=== PATIENT | male | born 2000 ===

== ENCOUNTER 2020-08-19 01:30 | Emergency (ER) | payer SELFPAY ==
--- NOTE | 2020-08-19 | XR_ITS ---
EXAMINATION: LEFT HAND 3 VIEWS CLINICAL INFORMATION: Left hand pain. COMPARISON: None. TECHNIQUE: PA, lateral, oblique views of the left hand were obtained. FINDINGS: There is volar angulation to a fracture to the distal left fifth metacarpal. There is associated soft tissue swelling. XR/XR hand LT min 3V IMPRESSION: Distal left fifth metacarpal fracture.
[2020-08-19 02:12] VITALS: BP 136/76; PULSE 99; RESP 18; TEMP 36.9; O2SAT 99; BMI 21.9
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
[2020-08-19 04:01] VITALS: BP 94/53; PULSE 84; RESP 17; TEMP 36.7; O2SAT 99
== END 2020-08-19 04:38 | disposition home or self-care (01) ==
PROVIDERS: Emergency Provider Emergency Medicine Emergency Medical Services
DX: S62.92XA Unspecified fracture of left hand, initial encounter for closed fracture (principal); M79.642 Pain in left hand; X79.XXXA Intentional self-harm by blunt object, initial encounter; Y93.9 Activity, unspecified; Y92.9 Unspecified place or not applicable; Y99.9 Unspecified external cause status
CPT/HCPCS: 73130; 99283; 99284

== ENCOUNTER 2020-08-21 10:33 | Outpatient (REF) | payer SELFPAY ==
--- NOTE | 2020-08-21 11:51 | XR_ITS ---
EXAMINATION: XR HAND, LEFT CLINICAL INFORMATION: Fifth metacarpal fracture COMPARISON: Previous x-ray 08/19/2020 TECHNIQUE: Lateral view of the left hand. FINDINGS: There is an overlying cast. There is a fracture of the distal shaft of the fifth metacarpal bone. There is slight volar angulation of the head with respect to the shaft. Alignment appears unchanged. No other fracture is seen. XR/XR hand LT 2V IMPRESSION: New overlying cast. No change in left fifth metacarpal fracture.
== END 2020-08-21 10:34 | disposition home or self-care (01) ==
LOC: HO.HOSX 10:33
PROVIDERS: Visit Provider Physician Assistant
DX: S62.92XA Unspecified fracture of left hand, initial encounter for closed fracture (principal)
CPT/HCPCS: 20600; 26605; 29075; 73120; 99212

== ENCOUNTER 2020-09-11 13:51 | Outpatient (REF) | payer SELFPAY ==
--- NOTE | 2020-09-11 13:51 | XR_ITS ---
EXAMINATION: XR HAND, LEFT CLINICAL INFORMATION: Fifth metacarpal fracture. Follow-up. COMPARISON: Radiographs left hand 08/21/2020, 08/19/2020, 08/16/2015 TECHNIQUE: Left hand is imaged in 4 views. FINDINGS: There is fracture at neck fifth metacarpal again seen. Fracture lines are still visible. Dorsal angulation fracture site is perhaps borderline increased. There is no new fracture or destructive process. XR/XR hand LT min 3V IMPRESSION: Fifth metacarpal neck fracture with borderline increase in dorsal angulation.
== END 2020-09-11 13:52 | disposition home or self-care (01) ==
LOC: HO.HOSX 13:51
PROVIDERS: Visit Provider Physician Assistant
DX: S62.339D Displaced fracture of neck of unspecified metacarpal bone, subsequent encounter for fracture with routine healing (principal)
CPT/HCPCS: 73130; 99212

== ENCOUNTER 2020-09-22 15:58 | Emergency (ER) | payer SELFPAY ==
[2020-09-22 16:01] VITALS: BP 112/71; PULSE 55; RESP 18; O2SAT 99; BMI 22.3
--- NOTE | 2020-09-22 19:49 | ED_ITS ---
HPI - Abdominal Pain General Chief Complaint: Abdominal Pain Stated Complaint: Abdominal pain/vomiting Time Seen by Provider: 09/22/20 20:14 Source: patient Mode of arrival: ambulatory Limitations: no limitations History of Present Illness HPI narrative: 20-year-old male with past medical history of appendectomy pre sents with sudden onset of abdominal pain, nausea and vomiting. This started about an hour after eating plantain and rice. He does report daily marijuana use but denies alcohol, cocaine, heroin and other illicit drugs. He does not report any other symptoms, denies chest pain and pressure, palpitations, fevers, chills, abdominal distention, dysuria, hematuria, and edema. MD elicited complaint: abdominal pain Onset (ago): hour(s) (1:00 p.m.) Pain Consistency: intermittent Location: epigastric Severity: moderate Pain scale (0-10): 6 Quality: cramping and stabbing Radiation: none Migration to: no migration Exacerbating factors: vomiting and movement Relieving factors: nothing Context: possible food poisoning Associated symptoms: denies other symptoms Related Data Previous Rx's Medication Instructions Recorded amoxicillin-pot clavulanate 1 tab PO Q12H 7 Days #14 tab 08/19/20 [Augmentin] ibuprofen 400 mg PO Q6H PRN #20 tab 08/19/20 arm brace #1 ea 09/15/20 arm brace #1 ea 09/20/20 ondansetron HCl [Zofran] 4 mg PO Q8H PRN #10 tab 09/22/20 Allergies Allergy/AdvReac Type Severity Reaction Status Date / Time No Known Allergies Allergy Verified 09/11/20 13:54 [No Known Allergies*] Review of Systems Review of Systems Constitutional: No Weight loss, No Fever, No Chills, No Night Sweats, No Fatigue, No Malaise ENT/Mouth: No Hearing loss, No Ear Pain, No Nasal Congestion, No Sinus Pain, No Hoarseness, No sore throat, No Rhinorrhea, No Swallowing Difficulty Eyes: No Eye Pain, No Swelling, No Redness, No Foreign Body, No Discharge, No Vision Changes Cardiovascular: No Chest Pain, No SOB, No Dyspnea on Exertion, No Orthopnea, No Edema, No Palpitations Respiratory: No Cough, No Sputum, No Wheezing, No Smoke Exposure, No Dyspnea Gastrointestinal: Positive Nausea, Positive Vomiting, no Diarrhea, positive abdominal Pain, No Hematochezia, No Melena Genitourinary: no irregular bleeding, No Dysuria, No Urinary Frequency, No Hematuria, No Urinary Incontinence, No Urgency, No Flank Pain, No Urinary Flow Changes, No Hesitancy Musculoskeletal: No joint pain, No Myalgias, No Joint Swelling Skin: No Skin Lesions, No rash Neuro: No Weakness, No Numbness, No Paresthesias, No Loss of Consciousness, No Dizziness, No Headache Psych: No Anxiety/Panic, No Depression, No SI/HI/AH/VH, No Social Issues Heme/Lymph: No Bruising, No Bleeding,No Lymphadenopathy Endocrine: No Polyuria, No Polydipsia, No Temperature Intolerance Yes all other systems are reviewed and are negative Physical Exam Vital Signs: Vital Signs: Last Vital Signs Pulse 55 09/22/20 16:01 Resp 18 09/22/20 16:01 BP 112/71 09/22/20 16:01 Pulse Ox 99 09/22/20 16:01 Body Mass Index 22.3 Appearance: Alert. Oriented X3. Moderate distress, verbally aggressive. Eyes: Pupils equal, round and reactive to light. ENT: Pharynx normal. Neck: Normal inspection. Neck supple. CVS: Normal heart rate and rhythm. Pulses normal. Respiratory: No respiratory distress. Breath sounds normal. Abdomen: Soft and nontender. Skin: Skin warm and dry. Normal skin color. Normal skin turgor. Extremities: No lower extremity edema. Neuro: No motor deficit. No sensory deficit. Course Course Course Narrative: Upon my initial evaluation, Patient demanding that this POLITICAL ANALYST get him something to drink, he states that he is not wearing a mask because he does not have one, demanded that I get him a mask, was speaking in a very demeaning tone. He had a prior encounter with the [employer] coordinator, was swearing and speaking in a condescending and disrespectful manner to all staff, verbally aggressive to all staff he has encountered. Plan of care is COVID test, and CBC, Chem 7. Negative physical exam, no abdominal pain, negative Gatica's, psoas, obturator, Rovsing's and McBurney's. Patient did have a prior appendectomy. Lab values indicate a white count of 14.1 this could be a viral gastroenteritis versus food poisoning. Plan of care is to discharge home with supportive measures of Zofran and fluids. Findings discussed with the patient, patient sta paul that he was very upset when he 1st came in and he apologizes about his poor behavior, Patient verbalized understanding of and agrees to plan of care to discharge home MDM - Abdominal Pain Lab Data Result diagrams: 09/22/20 20:16 12 20:16 Labs: Lab Results 09/22/20 12 Range/Units 20:16 20:16 WBC 14.3 H (4.8-10.8) X10*3/uL RBC 4.76 (4.60-5.80) X10*6/uL Hgb 15.1 (14.0-18.0) g/dl Hct 44.3 (42-52) % MCV 93.1 (80-98) fL MCH 31.7 (27.0-33.0) pg MCHC 34.1 (31.0-36.0) g/dl RDW 11.9 (11.0-16.0) % Plt Count 209 (160-400) X10*3/uL MPV 10.9 (9.4-12.4) fL Immature Gran % (Auto) 0.4 (0.0-0.4) % Neut % (Auto) 93.1 H (45-73) % Lymph % (Auto) 2.6 L (20-40) % Dickinson % (Auto) 3.8 (2-11) % Eos % (Auto) 0.0 (0-4) % Baso % (Auto) 0.1 (0-2) % Lymph # (Auto) 0.4 L (1.2-4.9) X10*3/uL Dickinson # (Auto) 0.5 (0.1-1.2) X10*3/uL Eos # (Auto) 0.0 (0.0-0.4) X10*3/uL Baso # (Auto) 0.0 (0.0-0.2) X10*3/uL Abs Immat Gran (auto) 0.06 H (0.00-0.03) X10*3/uL Absolute Neuts (auto) 13.3 H (2.0-8.3) X10*3/uL Absolute Nucleated RBC 0.000 (0.0-0.012) X10*3/uL Nucleated RBC % (auto) 0.0 (0.0-0.2) /100WBC Smear Tech's Comments VERIFIED Sodium 142 (135-145) mmol/L Potassium 3.7 (3.3-5.1) mmol/l Chloride 104 (96-108) mmol/L Carbon Dioxide 22 (22-29) mmol/L Anion Gap 20 (12-20) BUN 12 (9-16) mg/dL Creatinine 0.75 (0.5-1.4) mg/dL Estim Creat Clear Calc 130.1 Estimated GFR > 60 Random Glucose 96 (60-115) mg/dL Calcium 9.6 (8.4-10.2) mg/dL Discharge Plan Discharge Clinical Impression: Gastroenteritis, Food poisoning Patient Disposition: Home, Self-Care Instructions: Gastroenteritis (ED), Acute Nausea and Vomiting (ED), Food Poisoning (ED) Additional Instructions: You were evaluated for nausea, vomiting and abdominal pain. This could possibly be a viral gastroenteritis versus food poisoning. Please drink plenty of fluids, use Zofran as needed to prevent nausea. If things get worse or if you develop fevers, chills, or any other concerning symptoms please return to the emergency department immediately. You were tested for COVID-19. We will call you in approximately 4 days with the results. Please maintain social isolation per state and Federal guidelines. It is your responsibility to maintain isolation per state and Federal guidelines. Thank you for choosing this emergency department for evaluation. Please follow-up with primary care physician as needed. Return to the emergency department for any new, concerning, or worsening symptoms. Prescriptions: New ondansetron HCl [Zofran] 4 mg tablet 4 mg PO Q8H PRN (Reason: nausea and vomiting) Qty: 10 RF: 0 No Action (DME) Wrist Brace Misc See Rx Instructions .MEDSUPPLY Qty: 1 RF: 0 (DME) Wrist Brace Misc See Rx Instructions .MEDSUPPLY Qty: 1 RF: 0 ibuprofen 400 mg tablet 400 mg PO Q6H PRN (Reason: pain) Qty: 20 RF: 0 amoxicillin-pot clavulanate [Augmentin] 875-125 mg tablet 1 tab PO Q12H 7 Days Qty: 14 RF: 0 Interventions: ED Discharge Assessment Last Done: 09/22/20 21:15 Discharge Date/Time: 09/22/20 21:15 [facility] Social History Social History Alcohol intake: never Tobacco Type: Cigarette Advance Directives: No Advance Directives Information Provided: Yes Current occupational status: unemployed
[2020-09-22 20:30] LABS: Basophils Percent Auto 0.1 % (0-2); Hematocrit 44.3 % (42-52); Hemoglobin 15.1 g/dl (14.0-18.0); Imm Gran Abs Auto 0.06 X10*3/uL (0.00-0.03); Imm Gran Pct Auto 0.4 % (0.0-0.4); Lymphocytes Absolute Auto 0.4 X10*3/uL (1.2-4.9); Lymphocytes Percent Auto 2.6 % (20-40); MANUAL DIFF FLAG SCAN; Mean Corpuscular HGB Conc 34.1 g/dl (31.0-36.0); Mean Corpuscular Hemoglobin 31.7 pg (27.0-33.0); Mean Corpuscular Volume 93.1 fL (80-98); Mean Platelet Volume 10.9 fL (9.4-12.4); Monocytes Absolute Auto 0.5 X10*3/uL (0.1-1.2); Monocytes Percent Auto 3.8 % (2-11); Neutrophils Absolute Auto 13.3 X10*3/uL (2.0-8.3); Neutrophils Percent Auto 93.1 % (45-73); Platelet Count 209 X10*3/uL (160-400); Red Blood Count 4.76 X10*6/uL (4.60-5.80); Red Cell Distribution Width 11.9 % (11.0-16.0); SCAN SMEAR FLAG 1; White Blood Count 14.3 X10*3/uL (4.8-10.8)
[2020-09-22 20:50] LABS: SLIDE REVIEW VERIFIED
[2020-09-22 20:58] LABS: Anion Gap 20 (12-20); Blood Urea Nitrogen 12 mg/dL (9-16); Calcium 9.6 mg/dL (8.4-10.2); Carbon Dioxide 22 mmol/L (22-29); Chloride 104 mmol/L (96-108); Creatinine Clr Calc Pharmacy 130.1; Estimated Glomerular Filt Rate > 60; Glucose Random 96 mg/dL (60-115); Potassium 3.7 mmol/l (3.3-5.1); Sodium 142 mmol/L (135-145)
== END 2020-09-22 21:15 | disposition home or self-care (01) ==
PROVIDERS: Nurse Practitioner Family; Emergency Provider Internal Medicine
DX: K52.29 Other allergic and dietetic gastroenteritis and colitis (principal); R10.13 Epigastric pain; R11.2 Nausea with vomiting, unspecified; F12.90 Cannabis use, unspecified, uncomplicated; Z20.828 Contact with and (suspected) exposure to other viral communicable diseases; F17.210 Nicotine dependence, cigarettes, uncomplicated; Z71.6 Tobacco abuse counseling
CPT/HCPCS: 36415; 80048; 85025; 99283; U0003

== ENCOUNTER 2020-09-26 06:12 | Emergency (ER) | payer SELFPAY ==
--- NOTE | 2020-09-26 06:31 | ED_ITS ---
HPI - Nausea/Vomiting/Diarrhea General Chief complaint: General Medical Stated complaint: ABD PAIN Time Seen by Provider: 09/26/20 06:31 Source: patient Mode of arrival: ambulatory Limitations: no limitations History of Present Illness HPI Narrative: nausea and vomiting for three days. Patient states that he uses marijuana but does not have cyclical vomiting MD elicited complaint: nausea and vomiting Onset (ago): day(s) Description of vomiting: bilious Description of diarrhea: other (denies diarrhea) Associated nausea: Yes Associated abdominal pain: Yes Severity: moderate Associated symptoms: denies other symptoms Related Data Previous Rx's Medication Instructions Recorded amoxicillin-pot clavulanate 1 tab PO Q12H 7 Days #14 tab 08/19/20 [Augmentin] ibuprofen 400 mg PO Q6H PRN #20 tab 08/19/20 arm brace #1 ea 09/15/20 arm brace #1 ea 09/20/20 ondansetron HCl [Zofran] 4 mg PO Q8H PRN #10 tab 09/22/20 promethazine 25 mg PO TID PRN #14 tab 09/26/20 Allergies Allergy/AdvReac Type Severity Reaction Status Date / Time No Known Allergies Allergy Verified 09/11/20 13:54 [No Known Allergies*] Review of Systems Constitutional: Constitutional: Reports no additional constitutional complaints Eyes: Eyes: Reports no additional eye complaints ENT: Denies dizziness Cardiovascular: Cardiovascular: Reports no additional cardiovascular complaints Respiratory: Respiratory: Reports as per HPI Gastrointestinal: Gastrointestinal: Reports nausea Musculoskeletal: Musculoskeletal: Reports no additional musculoskeletal complaints Integumentary/Breasts: Skin/Breast: Denies rash Neurologic: Reports system reviewed and no additional complaints, except as documented, Denies dizziness and Denies Sensory deficit (Neuro) Psychiatric: Psychiatric: Denies anxiety [facility] Social History Social History Alcohol intake: never Tobacco Type: Cigarette Advance Directives: No Advance Directives Information Provided: No Current occupational status: unemployed Physical Exam Vital Signs: Vital Signs: Last Vital Signs Temp 97.6 F 09/26/20 06:41 Pulse 79 09/26/20 06:41 Resp 18 09/26/20 06:41 BP 132/77 09/26/20 06:41 Pulse Ox 100 09/26/20 06:41 Body Mass Index 14.5 Const: Other: very pale thin male vomiting Nutritional Appearance: underweight Orientation/consciousness: oriented to person and patient oriented x3 Limitations: no limitations HENMT: Head: Yes normal to inspection Ears: external ears normal General nose exam: Normal external nose present Mouth: Normal oral and palatal mucosa present and oropharynx normal Throat: Yes posterior oropharynx normal Eyes: General: appearance normal, both eyes and all related structures Neck: Other: supple Neck: Yes normal visual inspection Chest: Chest palpation & inspection: normal inspection of the chest Resp: Auscultation: clear to auscultation bilaterally Cardio: Jugular venous distension: no JVD Rate: regular rate Rhythm: regular rhythm Heart sounds: S1 normal heart sound present and S2 normal heart sound present GI: Inspection: Yes normal to inspection Palpation (GI): Soft to palpation, nontender and No hepatosplenomegaly present Auscultation: normal bowel sounds : General: Yes no CVA tenderness Back/Spine/Pelvis: Back: no CVA tenderness Skin: General skin exam: no rashes or lesions noted Neuro: General: oriented to person and patient oriented x3 Cranial nerves: Yes CN's II-XII intact bilaterally Motor exam (neuro): 5/5 motor strength present throughout Sensory Exam: No Sensory deficit (Neuro) Extrem: General: Yes normal to inspection Psych: Appearance: grossly normal Course Course Course Narrative: resting comfortably will dc home MDM - Nausea/Vomiting/Diarrhea MDM Narrative Medical decision making narrative: patient with intractable vomiting now better will dc home Lab Data Result diagrams: 09/26/20 06:46 09/26/20 06:46 Labs: Lab Results 09/26/20 09/26/20 Range/Units 06:46 06:46 WBC 10.4 (4.8-10.8) X10*3/uL RBC 5.11 (4.60-5.80) X10*6/uL Hgb 16.5 (14.0-18.0) g/dl Hct 46.2 (42-52) % MCV 90.4 (80-98) fL MCH 32.3 (27.0-33.0) pg MCHC 35.7 (31.0-36.0) g/dl RDW 11.7 (11.0-16.0) % Plt Count 231 (160-400) X10*3/uL MPV 10.7 (9.4-12.4) fL Immature Gran % (Auto) 0.2 (0.0-0.4) % Neut % (Auto) 58.0 (45-73) % Lymph % (Auto) 27.8 (20-40) % Lewis % (Auto) 12.1 H (2-11) % Eos % (Auto) 1.4 (0-4) % Baso % (Auto) 0.5 (0-2) % Lymph # (Auto) 2.9 (1.2-4.9) X10*3/uL Lewis # (Auto) 1.3 H (0.1-1.2) X10*3/uL Eos # (Auto) 0.2 (0.0-0.4) X10*3/uL Baso # (Auto) 0.1 (0.0-0.2) X10*3/uL Abs Immat Gran (auto) 0.02 (0.00-0.03) X10*3/uL Absolute Neuts (auto) 6.0 (2.0-8.3) X10*3/uL Absolute Nucleated RBC 0.000 (0.0-0.012) X10*3/uL Nucleated RBC % (auto) 0.0 (0.0-0.2) /100WBC Sodium 140 (135-145) mmol/L Potassium 3.4 (3.3-5.1) mmol/l Chloride 105 (96-108) mmol/L Carbon Dioxide 22 (22-29) mmol/L Anion Gap 16 (12-20) BUN 14 (9-16) mg/dL Creatinine 0.93 (0.5-1.4) mg/dL Estim Creat Clear Calc 72.5 Estimated GFR > 60 Random Glucose 107 (60-115) mg/dL Calcium 9.1 (8.4-10.2) mg/dL Total Bilirubin 0.8 (0.0-1.0) mg/dL Direct Bilirubin 0.4 (0.0-0.5) mg/dL AST 35 (5-37) U/L ALT 71 H (0-40) U/L Alkaline Phosphatase 59 (39-117) U/L Total Protein 7.2 (6.5-8.0) g/dL Albumin 4.7 (3.5-5.0) g/dL Lipase 64 (8-78) U/L Discharge Plan Discharge Clinical Impression: Vomiting Qualifiers: Vomiting type: cyclical vomiting syndrome unrelated to migraine Qualified Code(s): R11.15 - Cyclical vomiting syndrome unrelated to migraine Patient Disposition: Home, Self-Care Instructions: Acute Nausea and Vomiting (ED) Prescriptions: New promethazine 25 mg tablet 25 mg PO TID PRN (Reason: nausea and vomiting) Qty: 14 RF: 0 No Action (DME) Wrist Brace Misc See Rx Instructions .MEDSUPPLY Qty: 1 RF: 0 (DME) Wrist Brace Misc See Rx Instructions .MEDSUPPLY Qty: 1 RF: 0 ibuprofen 400 mg tablet 400 mg PO Q6H PRN (Reason: pain) Qty: 20 RF: 0 amoxicillin-pot clavulanate [Augmentin] 875-125 mg tablet 1 tab PO Q12H 7 Days Qty: 14 RF: 0 ondansetron HCl [Zofran] 4 mg tablet 4 mg PO Q8H PRN (Reason: nausea and vomiting) Qty: 10 RF: 0 Referrals: Physician,None [Primary Care Provider] - 2 days
[2020-09-26 06:41] VITALS: BP 132/77; PULSE 79; RESP 18; TEMP 36.4; O2SAT 100; BMI 14.5
[2020-09-26] MEDS: Pantoprazole Sodium 40 MG/10 ML VIAL IVPUSH (07:03)
[2020-09-26] MEDS: 0.9 % Sodium Chloride 1,000 ML 999 ML IVCONT (07:05)
[2020-09-26] MEDS: diphenhydrAMINE HCL 50 MG/ML VIAL 25 MG IVPUSH (07:06)
[2020-09-26 07:13] LABS: MANUAL DIFF FLAG NO
[2020-09-26 07:15] LABS: Basophils Absolute Auto 0.1 X10*3/uL (0.0-0.2); Basophils Percent Auto 0.5 % (0-2); Eosinophils Absolute Auto 0.2 X10*3/uL (0.0-0.4); Eosinophils Percent Auto 1.4 % (0-4); Hematocrit 46.2 % (42-52); Hemoglobin 16.5 g/dl (14.0-18.0); Imm Gran Abs Auto 0.02 X10*3/uL (0.00-0.03); Imm Gran Pct Auto 0.2 % (0.0-0.4); Lymphocytes Absolute Auto 2.9 X10*3/uL (1.2-4.9); Lymphocytes Percent Auto 27.8 % (20-40); Mean Corpuscular HGB Conc 35.7 g/dl (31.0-36.0); Mean Corpuscular Hemoglobin 32.3 pg (27.0-33.0); Mean Corpuscular Volume 90.4 fL (80-98); Mean Platelet Volume 10.7 fL (9.4-12.4); Monocytes Absolute Auto 1.3 X10*3/uL (0.1-1.2); Monocytes Percent Auto 12.1 % (2-11); Platelet Count 231 X10*3/uL (160-400); Red Blood Count 5.11 X10*6/uL (4.60-5.80); Red Cell Distribution Width 11.7 % (11.0-16.0); White Blood Count 10.4 X10*3/uL (4.8-10.8)
[2020-09-26 07:37] LABS: Alanine Aminotransferase 71 U/L (0-40); Albumin Level 4.7 g/dL (3.5-5.0); Alkaline Phosphatase 59 U/L (39-117); Anion Gap 16 (12-20); Aspartate Amino Transferase 35 U/L (5-37); Bilirubin Direct 0.4 mg/dL (0.0-0.5); Bilirubin Total 0.8 mg/dL (0.0-1.0); Blood Urea Nitrogen 14 mg/dL (9-16); Calcium 9.1 mg/dL (8.4-10.2); Carbon Dioxide 22 mmol/L (22-29); Chloride 105 mmol/L (96-108); Creatinine Clr Calc Pharmacy 72.5; Estimated Glomerular Filt Rate > 60; Glucose Random 107 mg/dL (60-115); Lipase 64 U/L (8-78); Potassium 3.4 mmol/l (3.3-5.1); Sodium 140 mmol/L (135-145); Total Protein 7.2 g/dL (6.5-8.0)
[2020-09-26 08:00] VITALS: BP 129/70; PULSE 76; RESP 18; TEMP 36.6; O2SAT 100
== END 2020-09-26 10:05 | disposition home or self-care (01) ==
PROVIDERS: Emergency Provider Emergency Medicine
DX: R11.15 Cyclical vomiting syndrome unrelated to migraine (principal); R10.9 Unspecified abdominal pain; Z79.899 Other long term (current) drug therapy; F17.210 Nicotine dependence, cigarettes, uncomplicated; Z71.6 Tobacco abuse counseling
CPT/HCPCS: 36415; 80048; 80076; 83690; 85025; 96361; 96374; 96375; 99284; J1200

== ENCOUNTER 2020-09-27 05:15 | Emergency (ER) | payer SELFPAY ==
[2020-09-27 07:47] LABS: Glucose, Whole Blood 106 mg/dL (60-115)
[2020-09-27] MEDS: Lidocaine HCl Viscous 2 % 15 ML SOLUTION 10 ML MUCOUS MEM (08:03)
[2020-09-27] MEDS: Magnesium Hydrox/Alum Hydrox 30 ML ORAL.SUSP PO (08:05)
[2020-09-27] MEDS: diphenhydrAMINE HCL 50 MG/ML VIAL 25 MG IM (08:06)
[2020-09-27] MEDS: Metoclopramide HCl 10 MG/2 ML VIAL IM (08:07)
--- NOTE | 2020-09-27 08:08 | PC.NURSE ---
DOWNTIME DOCUMENTATION FROM 05:15-0700
== END 2020-09-27 07:28 | disposition home or self-care (01) ==
PROVIDERS: Emergency Provider Student in an Organized Health Care Education/Training Program
DX: K29.70 Gastritis, unspecified, without bleeding (principal); R11.10 Vomiting, unspecified; F17.210 Nicotine dependence, cigarettes, uncomplicated
CPT/HCPCS: 82947; 96372; 99284; J1200; J2765

== ENCOUNTER 2020-09-28 12:53 | Emergency (ER) | payer SELFPAY ==
[2020-09-28 13:03] VITALS: BP 136/93; PULSE 60; RESP 22; TEMP 36.8; O2SAT 99; BMI 20.9
--- NOTE | 2020-09-28 13:10 | CT_ITS ---
EXAMINATION: CT ABDOMEN AND PELVIS WITH CONTRAST CLINICAL INFORMATION: Abdominal pain COMPARISON: None TECHNIQUE: Multidetector volumetric images were obtained from the superior aspect of the liver through the pubic symphysis following administration 85 mL of Omnipaque 350 intravenous contrast. Sagittal and coronal reformatted images were obtained on the technologist's workstation. Oral contrast: No This CT examination was performed using dose optimization techniques as appropriate, variously including the following: *Automated exposure control *Adjustment of mA and/or kV according to patient size (this includes techniques or standardized protocols for targeted exams where dose is matched to indication/reason for exam; i.e. extremities or head) *Use of iterative reconstruction technique DLP: 258 mGy-cm FINDINGS: LUNG BASES: The visualized lung bases are unremarkable. LIVER, GALLBLADDER, AND BILIARY TREE: The liver is normal in size, shape, and attenuation. No focal hepatic lesion or biliary ductal dilatation is present. There is a periportal edema. The gallbladder is unremarkable with no evidence of radiopaque gallstones, gallbladder wall thickening, or obvious pericholecystic inflammatory changes. PANCREAS: Unremarkable. SPLEEN: Unremarkable. ADRENAL GLANDS: Unremarkable. KIDNEYS AND URETERS: The kidneys are normal in size, shape, and attenuation. No hydronephrosis, hydroureter, or calculi seen. No perinephric stranding. BLADDER: Unremarkable. GASTROINTESTINAL TRACT: The small and large bowel are unremarkable. The appendix is unremarkable. ABDOMINAL WALL: No significant hernia is appreciated. LYMPH NODES: Normal. VASCULAR: Unremarkable. PELVIC VISCERA: Unremarkable. OSSEOUS STRUCTURES: Unremarkable CT/CT abdomen pelvis w con IMPRESSION: No acute intra-abdominal process.
--- NOTE | 2020-09-28 13:12 | ED.NAVMDI ---
HPI - Nausea/Vomiting/Diarrhea General Chief complaint: Abdominal Pain Stated complaint: vomiting Time Seen by Provider: 09/28/20 13:07 Source: patient Mode of arrival: ambulatory Limitations: no limitations History of Present Illness HPI Narrative: 20-year-old male who denies any significant medical history presents today with continued nausea and vomiting for the past 6 days now. States he ate some rice and pork chops on the weekend (6 days ago) states he has had nausea and vomiting since with abdominal pain now on the left side. States he has been to the emergency room twice since 1st on the and again on the 26 of September. States his symptoms were improved however though come back worse. MD elicited complaint: nausea, vomiting and abdominal pain Onset (ago): day(s) Description of vomiting: food contents Associated nausea: Yes Associated abdominal pain: Yes Location of pain: diffuse Pain consistency: constant Severity: severe Quality: aching Associated symptoms: denies other symptoms Treatment prior to arrival: none Related Data Previous Rx's Medication Instructions Recorded amoxicillin-pot clavulanate 1 tab PO Q12H 7 Days #14 tab 08/19/20 [Augmentin] ibuprofen 400 mg PO Q6H PRN #20 tab 08/19/20 arm brace #1 ea 09/15/20 arm brace #1 ea 09/20/20 ondansetron HCl [Zofran] 4 mg PO Q8H PRN #10 tab 09/22/20 promethazine 25 mg PO TID PRN #14 tab 09/26/20 metoclopramide HCl [Reglan] 10 mg PO Q6H PRN #10 tab 09/28/20 omeprazole magnesium [Prilosec OTC] 20 mg PO BID #14 tab 09/28/20 Allergies Allergy/AdvReac Type Severity Reaction Status Date / Time No Known Allergies Allergy Verified 09/11/20 13:54 [No Known Allergies*] Review of Systems Review of Systems: Constitutional: No Weight loss, No Fever, No Chills, No Night Sweats, No Fatigue, No Malaise ENT/Mouth: No Hearing loss, No Ear Pain, No Nasal Congestion, No Sinus Pain, No Hoarseness, No sore throat, No Rhinorrhea, No Swallowing Difficulty Eyes: No Eye Pain, No Swelling, No Redness, No Foreign Body, No Discharge, No Vision Changes Cardiovascular: No Chest Pain, No SOB, No Dyspnea on Exertion, No Orthopnea, No Edema, No Palpitations Respiratory: No Cough, No Sputum, No Wheezing, No Smoke Exposure, No Dyspnea Gastrointestinal:As noted in HPI , No Hematochezia, No Melena Genitourinary: No Dysuria, No Urinary Frequency, No Hematuria, No Urinary Incontinence, No Urgency, No Flank Pain, No Urinary Flow Changes, No Hesitancy Musculoskeletal: No joint pain, No Myalgias, No Joint Swelling Skin: No Skin Lesions, No rash Neuro: No Weakness, No Numbness, No Paresthesias, No Loss of Consciousness, No Dizziness, No Headache Psych: No Anxiety/Panic, No Depression, No SI/HI/AH/VH, No Social Issues Heme/Lymph: No Bruising, No Bleeding,No Lymphadenopathy Endocrine: No Polyuria, No Polydipsia, No Temperature Intolerance Yes all other systems are reviewed and are negative Gastrointestinal: Gastrointestinal: Reports nausea PMFSH Social History Social History Alcohol intake: never Smoking Status: Never smoker Tobacco Type: Cigarette Use of substances other than those prescribed or required for medical reasons: No Advance Directives: No Advance Directives Information Provided: Yes Current occupational status: unemployed Physical Exam Vital Signs: Vital Signs: Last Vital Signs Temp 98.3 F 09/28/20 15:08 Pulse 70 09/28/20 15:08 Resp 18 09/28/20 15:08 BP 137/89 09/28/20 15:08 Pulse Ox 100 09/28/20 15:08 Body Mass Index 20.9 Reviewed Const: General: cooperative and healthy appearing; No acute distress or intoxicated appearing Nutritional Appearance: average body habitus Orientation/consciousness: patient oriented x3 HENMT: Head: Yes normal to inspection Ears: hearing grossly normal bilaterally Eyes: General: appearance normal, both eyes and all related structures Visual Talbot: normal visual talbot by confrontation Neck: Neck: Yes normal visual inspection and No tender Thyroid: Thyroid normal Chest: Chest palpation & inspection: normal inspection of the chest Resp: Effort & Inspection: normal respiratory effort Auscultation: clear to auscultation bilaterally Cardio: Jugular venous distension: no JVD Rate: regular rate Rhythm: regular rhythm Heart sounds: S1 normal heart sound present and S2 normal heart sound present GI: Inspection: Yes normal to inspection Palpation (GI): Soft to palpation Percussion: Yes normal to percussion Auscultation: normal bowel sounds : General: Yes no CVA tenderness Back/Spine/Pelvis: Back: no CVA tenderness Skin: General skin exam: no rashes or lesions noted Neuro: General: patient oriented x3 Extrem: General: Yes normal to inspection Course Course Course Narrative: Labs overall stable comparable to previous 2 draws. Given continued symptoms CT of the abdomen pelvis was done without acute findings. Of note tox screen was positive for marijuana again THC induced hyperemesis is strongly suspected. Patient has been resting comfortably after initially medicated with Zofran 4 mg IV and 25 mg Benadryl. Patient will be discharged home with antiemetic clear precaution return follow-up instructions. Reevaluation(s) Reevaluation #1: pt drank 2 cups of 8 oz water MDM - Nausea/Vomiting/Diarrhea MDM Narrative Medical decision making narrative: Strong clinical suspicion for flu sensitivity gastroenteritis versus cannabinoid hyperemesis. Given 3rd visit continued complaint of pain will recheck labs and at this time scan abdomen for acute infectious/obstructive pathology. Will treat with IV fluids, antiemetics and re-evaluate. Differential Diagnosis Differential diagnosis: Likely food poisoning and gastroenteritis; Unlikely clostridium difficile infection Medical Records Attestation: I reviewed the patient's medical records. Lab Data Attestation: I reviewed the patient's lab results. Result diagrams: 09/28/20 13:19 09/28/20 13:19 Labs: Lab Results 09/28/20 09/28/20 09/28/20 Range/Units 13:19 13:19 15:09 WBC 11.2 H (4.8-10.8) X10*3/uL RBC 5.08 (4.60-5.80) X10*6/uL Hgb 16.1 (14.0-18.0) g/dl Hct 45.8 (42-52) % MCV 90.2 (80-98) fL MCH 31.7 (27.0-33.0) pg MCHC 35.2 (31.0-36.0) g/dl RDW 11.7 (11.0-16.0) % Plt Count 180 (160-400) X10*3/uL MPV 11.1 (9.4-12.4) fL Immature Gran % (Auto) 0.3 (0.0-0.4) % Neut % (Auto) 76.3 H (45-73) % Lymph % (Auto) 11.5 L (20-40) % [place] % (Auto) 11.1 H (2-11) % Eos % (Auto) 0.4 (0-4) % Baso % (Auto) 0.4 (0-2) % Lymph # (Auto) 1.3 (1.2-4.9) X10*3/uL [place] # (Auto) 1.2 (0.1-1.2) X10*3/uL Eos # (Auto) 0.1 (0.0-0.4) X10*3/uL Baso # (Auto) 0.1 (0.0-0.2) X10*3/uL Abs Immat Gran (auto) 0.03 (0.00-0.03) X10*3/uL Absolute Neuts (auto) 8.5 H (2.0-8.3) X10*3/uL Absolute Nucleated RBC 0.000 (0.0-0.012) X10*3/uL Nucleated RBC % (auto) 0.0 (0.0-0.2) /100WBC Sodium 141 (135-145) mmol/L Potassium 3.4 (3.3-5.1) mmol/l Chloride 103 (96-108) mmol/L Carbon Dioxide 24 (22-29) mmol/L Anion Gap 17 (12-20) BUN 10 (9-16) mg/dL Creatinine 1.00 (0.5-1.4) mg/dL Estim Creat Clear Calc 97.4 Estimated GFR > 60 Random Glucose 103 (60-115) mg/dL Calcium 9.4 (8.4-10.2) mg/dL Total Bilirubin 0.9 (0.0-1.0) mg/dL AST 71 H (5-37) U/L ALT 89 H (0-40) U/L Alkaline Phosphatase 65 (39-117) U/L Total Protein 7.3 (6.5-8.0) g/dL Albumin 4.9 (3.5-5.0) g/dL Urine Color Urine Appearance Urine pH (5.0-8.0) Ur Specific [place] (1.005-1.025) Urine Protein (NEG-TRACE) MG/DL Urine Glucose (UA) (NEG) MG/DL Urine Ketones (NEG) MG/DL Urine Blood (NEG) Urine Nitrite (NEG) Ur Leukocyte Esterase (NEG) Urine RBC (0) /HPF Urine WBC (0-4) /HPF Ur Squamous Epith Cells /LPF Urine Bacteria /LPF Urine Opiates Screen Not Detected (Not Detect) Ur Barbiturates Screen Not Detected (Not Detect) Ur Phencyclidine Scrn Not Detected (Not Detect) Ur Amphetamines Screen Not Detected (Not Detect) U Benzodiazepines Scrn Not Detected (Not Detect) Urine Cocaine Screen Not Detected (Not Detect) U Marijuana (THC) Screen POSITIVE H (Not Detect) 09/28/20 Range/Units 15:10 WBC (4.8-10.8) X10*3/uL RBC (4.60-5.80) X10*6/uL Hgb (14.0-18.0) g/dl Hct (42-52) % MCV (80-98) fL MCH (27.0-33.0) pg MCHC (31.0-36.0) g/dl RDW (11.0-16.0) % Plt Count (160-400) X10*3/uL MPV (9.4-12.4) fL Immature Gran % (Auto) (0.0-0.4) % Neut % (Auto) (45-73) % Lymph % (Auto) (20-40) % [place] % (Auto) (2-11) % Eos % (Auto) (0-4) % Baso % (Auto) (0-2) % Lymph # (Auto) (1.2-4.9) X10*3/uL [place] # (Auto) (0.1-1.2) X10*3/uL Eos # (Auto) (0.0-0.4) X10*3/uL Baso # (Auto) (0.0-0.2) X10*3/uL Abs Immat Gran (auto) (0.00-0.03) X10*3/uL Absolute Neuts (auto) (2.0-8.3) X10*3/uL Absolute Nucleated RBC (0.0-0.012) X10*3/uL Nucleated RBC % (auto) (0.0-0.2) /100WBC Sodium (135-145) mmol/L Potassium (3.3-5.1) mmol/l Chloride (96-108) mmol/L Carbon Dioxide (22-29) mmol/L Anion Gap (12-20) BUN (9-16) mg/dL Creatinine (0.5-1.4) mg/dL Estim Creat Clear Calc Estimated GFR Random Glucose (60-115) mg/dL Calcium (8.4-10.2) mg/dL Total Bilirubin (0.0-1.0) mg/dL AST (5-37) U/L ALT (0-40) U/L Alkaline Phosphatase (39-117) U/L Total Protein (6.5-8.0) g/dL Albumin (3.5-5.0) g/dL Urine Color YELLOW Urine Appearance HAZY Urine pH 7.5 (5.0-8.0) Ur Specific [place] 1.010 (1.005-1.025) Urine Protein NEG (NEG-TRACE) MG/DL Urine Glucose (UA) NEG (NEG) MG/DL Urine Ketones 40 (NEG) MG/DL Urine Blood NEG (NEG) Urine Nitrite NEG (NEG) Ur Leukocyte Esterase NEG (NEG) Urine RBC 1-4 (0) /HPF Urine WBC 0 (0-4) /HPF Ur Squamous Epith Cells NONE /LPF Urine Bacteria NONE /LPF Urine Opiates Screen (Not Detect) Ur Barbiturates Screen (Not Detect) Ur Phencyclidine Scrn (Not Detect) Ur Amphetamines Screen (Not Detect) U Benzodiazepines Scrn (Not Detect) Urine Cocaine Screen (Not Detect) U Marijuana (THC) Screen (Not Detect) Imaging Data CT scan - abdomen: Radiologist's impression: [address] [address] [address] Scan Report Signed Patient: Juancho Valdivia#: [id number] : 2000Acct:[id number] Age/Sex: 20 / MADM Date: 09/28/20 Loc: .ED Attending Dr: Ordering Physician: Layton Euceda NP Date of Service: 09/28/20 Procedure(s): CT abdomen pelvis w con Accession Number(s): [id number] cc: Layton Euceda 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 Sagittal and coronal reformatted images were obtained on the technologist's workstation. Oral contrast: No This CT examination was performed using dose optimization techniques as appropriate, variously including the following: *Automated exposure control *Adjustment of mA and/or kV according to patient size (this includes techniques or standardized protocols for targeted exams where dose is matched to indication/reason for exam; i.e. extremities or head) *Use of iterative reconstruction technique DLP: 258 mGy-cm FINDINGS: LUNG BASES: The visualized lung bases are unremarkable. LIVER, GALLBLADDER, AND BILIARY TREE: The liver is normal in size, shape, and attenuation. No focal hepatic lesion or biliary ductal dilatation is present. There is a periportal edema. The gallbladder is unremarkable with no evidence of radiopaque gallstones, gallbladder wall thickening, or obvious pericholecystic inflammatory changes. PANCREAS: Unremarkable. SPLEEN: Unremarkable. ADRENAL GLANDS: Unremarkable. KIDNEYS AND URETERS: The kidneys are normal in size, shape, and attenuation. No hydronephrosis, hydroureter, or calculi seen. No perinephric stranding. BLADDER: Unremarkable. GASTROINTESTINAL TRACT: The small and large bowel are unremarkable. The appendix is unremarkable. ABDOMINAL WALL: No significant hernia is appreciated. LYMPH NODES: Normal. VASCULAR: Unremarkable. PELVIC VISCERA: Unremarkable. OSSEOUS STRUCTURES: Unremarkable CT/CT abdomen pelvis w con IMPRESSION: No acute intra-abdominal process. Dictated By:NADIRA ROSA MD Signed By:<Electronically signed by NADIRA ROSA MD in OV>09/28/20 1518 DD/ 1310 TD/TT: Signal Manager: [facility] [place] Discharge Plan Discharge Clinical Impression: Vomiting Qualifiers: Vomiting type: cyclical vomiting syndrome unrelated to migraine Qualified Code(s): R11.15 - Cyclical vomiting syndrome unrelated to migraine Patient Disposition: Home, Self-Care Instructions: Acute Nausea and Vomiting (ED) Additional Instructions: [place] diet Push fluids Take medication prescribed Do not smoke marijuana Follow up with primary care doctor and GI doctor as discussed Return if any concerns or worsening symptoms Thank you Prescriptions: New metoclopramide HCl [Reglan] 10 mg tablet 10 mg PO Q6H PRN (Reason: nausea and vomiting) Qty: 10 RF: 0 omeprazole magnesium [Prilosec OTC] 20 mg tablet,delayed release (DR/EC) 20 mg PO BID Qty: 14 RF: 0 No Action (DME) Wrist Brace Misc See Rx Instructions .MEDSUPPLY Qty: 1 RF: 0 (DME) Wrist Brace Misc See Rx Instructions .MEDSUPPLY Qty: 1 RF: 0 ibuprofen 400 mg tablet 400 mg PO Q6H PRN (Reason: pain) Qty: 20 RF: 0 amoxicillin-pot clavulanate [Augmentin] 875-125 mg tablet 1 tab PO Q12H 7 Days Qty: 14 RF: 0 ondansetron HCl [Zofran] 4 mg tablet 4 mg PO Q8H PRN (Reason: nausea and vomiting) Qty: 10 RF: 0 promethazine 25 mg tablet 25 mg PO TID PRN (Reason: nausea and vomiting) Qty: 14 RF: 0 Referrals: ED Physician,Generic [Emergency Provider] - 2 days (Primary care ) Jennifer Reich MD [Physician] - 1 week
[2020-09-28] MEDS: diphenhydrAMINE HCL 50 MG/ML VIAL 25 MG IVPUSH (13:22)
[2020-09-28] MEDS: 0.9 % Sodium Chloride 1,000 ML 999 ML IV (13:22)
[2020-09-28] MEDS: ondansetron HCL 4 MG/2 ML VIAL IVPUSH (13:22)
[2020-09-28 13:24] LABS: Basophils Absolute Auto 0.1 X10*3/uL (0.0-0.2); Basophils Percent Auto 0.4 % (0-2); Eosinophils Absolute Auto 0.1 X10*3/uL (0.0-0.4); Eosinophils Percent Auto 0.4 % (0-4); Hematocrit 45.8 % (42-52); Hemoglobin 16.1 g/dl (14.0-18.0); Imm Gran Abs Auto 0.03 X10*3/uL (0.00-0.03); Imm Gran Pct Auto 0.3 % (0.0-0.4); Lymphocytes Absolute Auto 1.3 X10*3/uL (1.2-4.9); Lymphocytes Percent Auto 11.5 % (20-40); MANUAL DIFF FLAG NO; Mean Corpuscular HGB Conc 35.2 g/dl (31.0-36.0); Mean Corpuscular Hemoglobin 31.7 pg (27.0-33.0); Mean Corpuscular Volume 90.2 fL (80-98); Mean Platelet Volume 11.1 fL (9.4-12.4); Monocytes Absolute Auto 1.2 X10*3/uL (0.1-1.2); Monocytes Percent Auto 11.1 % (2-11); Neutrophils Absolute Auto 8.5 X10*3/uL (2.0-8.3); Neutrophils Percent Auto 76.3 % (45-73); Platelet Count 180 X10*3/uL (160-400); Red Blood Count 5.08 X10*6/uL (4.60-5.80); Red Cell Distribution Width 11.7 % (11.0-16.0); White Blood Count 11.2 X10*3/uL (4.8-10.8)
[2020-09-28 13:48] LABS: Alanine Aminotransferase 89 U/L (0-40); Albumin Level 4.9 g/dL (3.5-5.0); Alkaline Phosphatase 65 U/L (39-117); Anion Gap 17 (12-20); Aspartate Amino Transferase 71 U/L (5-37); Bilirubin Total 0.9 mg/dL (0.0-1.0); Blood Urea Nitrogen 10 mg/dL (9-16); Calcium 9.4 mg/dL (8.4-10.2); Carbon Dioxide 24 mmol/L (22-29); Chloride 103 mmol/L (96-108); Creatinine Clr Calc Pharmacy 97.4; Estimated Glomerular Filt Rate > 60; Glucose Random 103 mg/dL (60-115); Potassium 3.4 mmol/l (3.3-5.1); Sodium 141 mmol/L (135-145); Total Protein 7.3 g/dL (6.5-8.0)
[2020-09-28] MEDS: iohexoL 350 MG/ML 100 ML INFUS..BTL 85 ML IV (14:56)
[2020-09-28 15:08] VITALS: BP 137/89; PULSE 70; RESP 18; TEMP 36.8; O2SAT 100
[2020-09-28 15:24] LABS: Glucose Urine UA NEG (NEG); Leukocyte Esterase Urine NEG (NEG); Nitrite Urine NEG (NEG); PH 7.5 (5.0-8.0); Urine Blood NEG (NEG); Urine Ketones 40 MG/DL (NEG); Urine Protein NEG (NEG-TRACE)
[2020-09-28] MEDS: Metoclopramide HCl 10 MG/2 ML VIAL IVPUSH (15:32)
[2020-09-28] MEDS: Ketorolac Tromethamine 30 MG/ML VIAL IVPUSH (15:32)
[2020-09-28 15:38] LABS: Amphetamine Screen Urine Not Detected (Not Detect); Barbiturates, Urine Not Detected (Not Detect); Benzodiazepines Screen Urine Not Detected (Not Detect); Cannabinoid Screen Urine POSITIVE (Not Detect); Cocaine Screen Urine Not Detected (Not Detect); Opiate Screen Urine Not Detected (Not Detect); Phencyclidine Screen Urine Not Detected (Not Detect)
[2020-09-28 15:39] LABS: Appearance Urine HAZY; Color Urine YELLOW
[2020-09-28 15:55] LABS: WBC Urine 0 /HPF (0-4)
[2020-09-28] MEDS: Lidocaine HCl Viscous 2 % 15 ML SOLUTION 10 ML MUCOUS MEM (16:29)
[2020-09-28] MEDS: Magnesium Hydrox/Alum Hydrox 30 ML ORAL.SUSP PO (16:30)
== END 2020-09-28 16:39 | disposition home or self-care (01) ==
PROVIDERS: Nurse Practitioner Primary Care; Emergency Provider Emergency Medicine Emergency Medical Services
DX: R11.15 Cyclical vomiting syndrome unrelated to migraine (principal); R10.9 Unspecified abdominal pain; F17.210 Nicotine dependence, cigarettes, uncomplicated; Z71.6 Tobacco abuse counseling; Z79.899 Other long term (current) drug therapy
CPT/HCPCS: 36415; 74177; 80053; 80307; 81001; 85025; 96361; 96374; 96375; 99284; J1200; J1885; J2405; J2765; Q9967

== ENCOUNTER 2020-12-12 02:33 | Emergency (ER) | payer MEDICAID, SELFPAY ==
[2020-12-12 02:41] VITALS: BP 145/96; PULSE 74; RESP 18; TEMP 36.7; O2SAT 98; BMI 15.7
--- NOTE | 2020-12-12 02:48 | PC.NURSE ---
pt mom pulled this rn aside with use of translator and interpreter. Pt had episode of self injurous behavior yesterday. pt struck self in head. pt get's angry and starts hitting himself. mom reports patient is extremely anxious. Per mom pt is intoxicated in with marjuana. Per mom, pt wants to be inpatient for treatment.
--- NOTE | 2020-12-12 02:52 | PC.NURSE ---
pt called back into [facility]. i get really desperate because of the pain. pt denies si/hi. pt reports seeking detox services. Pt denies being given information regarding detox. Pt reports vomiting blood for 3 days.
--- NOTE | 2020-12-12 03:32 | ED_ITS ---
HPI - Nausea/Vomiting/Diarrhea General Chief complaint: Nausea/Vomiting/Diarrhea Stated complaint: VOMITING/ABD PAIN Time Seen by Provider: 12/12/20 03:32 Source: patient Mode of arrival: ambulatory History of Present Illness HPI Narrative: This is a 20-year-old male who [place] [facility] [place] [facility] [place], and [facility] for nausea and vomiting as well as marijuana use. Patient presents here to this emergency department after being evaluated at both [facility] and [facility] within the past 12 hours for nausea and vomiting and was treated with IV fluids, Zofran, GI cocktail at [facility] as well as having lab work done. He had also been seen at [facility] on 12/09 as well. Patient is experiencing epigastric discomfort with burning sensation into the chest and stated that he was nauseous but otherwise denies fevers, chills, urinary symptoms. Related Data Previous Rx's Medication Instructions Recorded amoxicillin-pot clavulanate 1 tab PO Q12H 7 Days #14 tab 08/19/20 [Augmentin] ibuprofen 400 mg PO Q6H PRN #20 tab 08/19/20 arm brace #1 ea 09/15/20 arm brace #1 ea 09/20/20 ondansetron HCl [Zofran] 4 mg PO Q8H PRN #10 tab 09/22/20 promethazine 25 mg PO TID PRN #14 tab 09/26/20 metoclopramide HCl [Reglan] 10 mg PO Q6H PRN #10 tab 09/28/20 omeprazole magnesium [Prilosec OTC] 20 mg PO BID #14 tab 09/28/20 sucralfate [Carafate] 10 ml PO BID #420 ml 12/12/20 Allergies Allergy/AdvReac Type Severity Reaction Status Date / Time No Known Allergies Allergy Verified 09/11/20 13:54 [No Known Allergies*] Review of Systems Review of Systems: Pertinent positives and negatives stated in HPI 10 point review systems is otherwise negative. [facility] Social History Social History Alcohol intake: never Smoking Status: Never smoker Tobacco Type: Cigarette Use of substances other than those prescribed or required for medical reasons: Yes Substance Use Type: Marijuana Substance Use Frequency: Chronic Longstanding Last Used Substance: Just Prior to Admission Any prior treatment program specific to substance use: No Advance Directives: No Current occupational status: unemployed Physical Exam Vital Signs: Vital Signs: Last Vital Signs Temp 98.0 F 12/12/20 04:00 Pulse 84 12/12/20 04:00 Resp 16 12/12/20 04:00 BP 126/84 12/12/20 04:00 Pulse Ox 98 12/12/20 04:00 Body Mass Index 15.7 VITAL SIGNS: Reviewed. GENERAL: Well developed, well nourished, anxious HEAD: Normocephalic/atraumatic, NOSE: Nares patent bilateral OROPHARYNX: no oral lesions noted, posterior pharynx clear NECK: Supple, no adenopathy LUNGS: Normal breath sounds. No adventitious sounds or accessory muscle use. SpO2<98> CARDIOVASCULAR: Regular rate and rhythm without noted murmurs, no JVD or lower extremity edema. ABDOMEN: Soft, tenderness at epigastric without rebound, non-distended with bowel sounds. NEUROLOGIC: Alert and oriented x 4. Course Course Course Narrative: This is a 20-year-old male with history and clinical presentation consistent with gastritis likely secondary to chronic nausea and vomiting. Despite patient's struggles with his nausea, vomiting, and gastritis he still has not established care with a primary care provider. He was given a GI cocktail as well as 1 g of Carafate and on re-evaluation had had resolution of his abdominal discomfort. He was reassured and strongly encouraged to establish care with a primary care provider and informed that he had been given an additional prescription for Carafate in an effort to improve his gastritis/suspected ulcer symptoms. Is and discharged in stable condition. Discharge Plan Discharge Clinical Impression: Nausea & vomiting Qualifiers: Vomiting type: unspecified Vomiting Intractability: non-intractable Qualified Code(s): R11.2 - Nausea with vomiting, unspecified Gastritis Qualifiers: Gastritis type: unspecified gastritis Chronicity: acute Gastritis bleeding: without bleeding Qualified Code(s): K29.00 - Acute gastritis without bleeding Patient Disposition: Home, Self-Care Instructions: Gastritis (ED), Diet for Stomach Ulcers and Gastritis (ED), Gastroesophageal Reflux in Infants (ED) Additional Instructions: Resume all home medications as prescribed. You have been provided with a prescription for Carafate which will provide additional comfort of the stomach as well as esophagus. Please initiate paperwork to get insurance as well as a primary care provider that will be able to assist you further as an outpatient with your inflammation of the stomach. Prescriptions: New sucralfate [Carafate] 100 mg/mL suspension 10 ml PO BID Qty: 420 RF: 0 No Action (DME) Wrist Brace Misc See Rx Instructions .MEDSUPPLY Qty: 1 RF: 0 (DME) Wrist Brace Misc See Rx Instructions .MEDSUPPLY Qty: 1 RF: 0 ibuprofen 400 mg tablet 400 mg PO Q6H PRN (Reason: pain) Qty: 20 RF: 0 amoxicillin-pot clavulanate [Augmentin] 875-125 mg tablet 1 tab PO Q12H 7 Days Qty: 14 RF: 0 ondansetron HCl [Zofran] 4 mg tablet 4 mg PO Q8H PRN (Reason: nausea and vomiting) Qty: 10 RF: 0 promethazine 25 mg tablet 25 mg PO TID PRN (Reason: nausea and vomiting) Qty: 14 RF: 0 metoclopramide HCl [Reglan] 10 mg tablet 10 mg PO Q6H PRN (Reason: nausea and vomiting) Qty: 10 RF: 0 omeprazole magnesium [Prilosec OTC] 20 mg tablet,delayed release (DR/EC) 20 mg PO BID Qty: 14 RF: 0 Referrals: Physician,None [Primary Care Provider] - 2 days Interventions: ED Discharge Assessment Last Done: 12/12/20 06:10 Discharge Date/Time: 12/12/20 06:10
[2020-12-12 04:00] VITALS: BP 126/84; PULSE 84; RESP 16; TEMP 36.7; O2SAT 98
[2020-12-12] MEDS: Lidocaine HCl Viscous 2 % 15 ML SOLUTION 10 ML MUCOUS MEM (04:08)
[2020-12-12] MEDS: Magnesium Hydrox/Alum Hydrox 30 ML ORAL.SUSP PO (04:08)
[2020-12-12] MEDS: Metoclopramide HCl 10 MG/2 ML VIAL IM (04:09)
[2020-12-12] MEDS: diphenhydrAMINE HCL 50 MG/ML VIAL 25 MG IM (04:09)
--- NOTE | 2020-12-12 05:35 | PC.NURSE ---
PATIENT SEEPING WITH EYES CLOSED, NO FACIAL GRIMACE OR GUARDING. BREATHING IS EVEN AND UNLABORED, AWAKES TO VOICE. PATIENT STATING FEELING BETTER, MD IS AWARE AND PREPARING D/C PAPERWORK. PATIENT STATING I AM NOT LEAVING NODDING 'NO' WHEN DISCUSSING DISCHARGE. PATIENT REPORTS STILL HAVE PAIN. OFFERING PATIENT TO TALK TO PROVIDER ABOUT SOMETHING FOR PAIN WHEN HE LEAVES. PATIENT AGREEABLE TO HAVING SOME TYLENOL. CONTINUES TO SHAKE HIS HEAD 'NO' WHEN DISCUSSING DISCHARGE.
[2020-12-12] MEDS: Acetaminophen 325 MG TABLET 975 MG PO (06:07)
[2020-12-12] MEDS: Sucralfate Oral Suspension 1 GM/10 ML ORAL.SUSP PO (06:08)
== END 2020-12-12 06:10 | disposition home or self-care (01) ==
PROVIDERS: Emergency Provider Student in an Organized Health Care Education/Training Program
DX: R11.2 Nausea with vomiting, unspecified (principal); K29.00 Acute gastritis without bleeding; F17.210 Nicotine dependence, cigarettes, uncomplicated; F12.90 Cannabis use, unspecified, uncomplicated
CPT/HCPCS: 96372; 99284; J1200; J2765

== ENCOUNTER 2021-04-29 00:55 | Emergency (ER) | payer OTHER, SELFPAY ==
--- NOTE | ~2021-04-29 | XR_ITS ---
EXAMINATION: XR TIBIA/FIBULA, LEFT XR ANKLE, LEFT XR FOOT, LEFT CLINICAL INFORMATION: Discoloration COMPARISON: 04/06/2021 left knee radiographs TECHNIQUE: 2 views of the left tibia/fibula. 2 views of the left ankle. 3 views of the left foot. FINDINGS: Redemonstrated comminuted fracture of the tibial plateau which does not appear significantly changed compared to prior. Redemonstrated adjacent proximal fibular head fracture. Articular alignment across the knee is anatomic. Small lipohemarthrosis is present. External fixation hardware is present in the tibial diaphysis. Alignment throughout the ankle and foot is anatomic with no acute fracture identified. XR/XR ankle LT min 3V IMPRESSION: Stable appearance of tibial plateau fracture and adjacent fibular fracture. External fixation hardware in the tibia. Small lipohemarthrosis at the knee. No acute findings identified in the ankle or foot.
--- NOTE | ~2021-04-29 | XR_ITS ---
EXAMINATION: XR TIBIA/FIBULA, LEFT XR ANKLE, LEFT XR FOOT, LEFT CLINICAL INFORMATION: Discoloration COMPARISON: 04/06/2021 left knee radiographs TECHNIQUE: 2 views of the left tibia/fibula. 2 views of the left ankle. 3 views of the left foot. FINDINGS: Redemonstrated comminuted fracture of the tibial plateau which does not appear significantly changed compared to prior. Redemonstrated adjacent proximal fibular head fracture. Articular alignment across the knee is anatomic. Small lipohemarthrosis is present. External fixation hardware is present in the tibial diaphysis. Alignment throughout the ankle and foot is anatomic with no acute fracture identified. XR/XR foot LT 2V IMPRESSION: Stable appearance of tibial plateau fracture and adjacent fibular fracture. External fixation hardware in the tibia. Small lipohemarthrosis at the knee. No acute findings identified in the ankle or foot.
--- NOTE | ~2021-04-29 | XR_ITS ---
EXAMINATION: XR TIBIA/FIBULA, LEFT XR ANKLE, LEFT XR FOOT, LEFT CLINICAL INFORMATION: Discoloration COMPARISON: 04/06/2021 left knee radiographs TECHNIQUE: 2 views of the left tibia/fibula. 2 views of the left ankle. 3 views of the left foot. FINDINGS: Redemonstrated comminuted fracture of the tibial plateau which does not appear significantly changed compared to prior. Redemonstrated adjacent proximal fibular head fracture. Articular alignment across the knee is anatomic. Small lipohemarthrosis is present. External fixation hardware is present in the tibial diaphysis. Alignment throughout the ankle and foot is anatomic with no acute fracture identified. XR/XR tibia fibula LT 2V IMPRESSION: Stable appearance of tibial plateau fracture and adjacent fibular fracture. External fixation hardware in the tibia. Small lipohemarthrosis at the knee. No acute findings identified in the ankle or foot.
[2021-04-29 01:03] VITALS: BP 115/69; PULSE 82; RESP 18; TEMP 36.7; O2SAT 99; BMI 18.2
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
[2021-04-29 02:54] VITALS: BP 124/87; PULSE 96; RESP 18; TEMP 37.2; O2SAT 100
--- NOTE | 2021-04-29 02:55 | PC.NURSE ---
IV established, all labs including BCX obtained and sent. VSS. Pt resting in bed in [facility], aware of plan to await lab results. Continue to monitor.
[2021-04-29 03:02] LABS: MANUAL DIFF FLAG NO
[2021-04-29 03:07] LABS: Basophils Percent Auto 0.2 % (0-2); Eosinophils Absolute Auto 0.1 X10*3/uL (0.0-0.4); Eosinophils Percent Auto 0.9 % (0-4); Hematocrit 42.4 % (42-52); Hemoglobin 14.5 g/dl (14.0-18.0); Imm Gran Abs Auto 0.01 X10*3/uL (0.00-0.03); Imm Gran Pct Auto 0.1 % (0.0-0.4); Lymphocytes Absolute Auto 3.6 X10*3/uL (1.2-4.9); Lymphocytes Percent Auto 37.7 % (20-40); Mean Corpuscular HGB Conc 34.2 g/dl (31.0-36.0); Mean Corpuscular Hemoglobin 31.1 pg (27.0-33.0); Mean Platelet Volume 10.3 fL (9.4-12.4); Monocytes Absolute Auto 0.8 X10*3/uL (0.1-1.2); Monocytes Percent Auto 8.8 % (2-11); Neutrophils Percent Auto 52.3 % (45-73); Platelet Count 252 X10*3/uL (160-400); Red Blood Count 4.66 X10*6/uL (4.60-5.80); Red Cell Distribution Width 12.3 % (11.0-16.0); White Blood Count 9.6 X10*3/uL (4.8-10.8)
--- NOTE | 2021-04-29 03:12 | PC.NURSE ---
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
[2021-04-29 03:23] LABS: Lactic Acid 1.2 mmol/L (0.5-2.0)
[2021-04-29 03:26] LABS: Anion Gap 15 (12-20); Blood Urea Nitrogen 12 mg/dL (9-16); Calcium 9.8 mg/dL (8.4-10.2); Carbon Dioxide 27 mmol/L (22-29); Chloride 104 mmol/L (96-108); Creatinine Clr Calc Pharmacy 111.5; Estimated Glomerular Filt Rate > 60; Glucose Random 107 mg/dL (60-115); Potassium 3.9 mmol/L (3.3-5.1); Sodium 142 mmol/L (135-145)
[2021-04-29] MEDS: ondansetron HCL 4 MG/2 ML VIAL IVPUSH (03:35)
[2021-04-29] MEDS: HYDROmorphone HCl 1 MG/ML SYRINGE IVPUSH (03:35)
--- NOTE | 2021-04-29 03:37 | PC.NURSE ---
Pt medicated per MAR, aware of plan to transfer to [place].
[2021-04-29] MEDS: oxyCODONE HCl Immed Release 5 MG TABLET 10 MG PO (04:27)
== END 2021-04-29 04:30 | disposition short-term general hospital (02) ==
PROVIDERS: Nurse Practitioner Family; Emergency Provider Student in an Organized Health Care Education/Training Program
DX: M79.605 Pain in left leg (principal); M25.562 Pain in left knee; R20.2 Paresthesia of skin; F12.90 Cannabis use, unspecified, uncomplicated; Z79.899 Other long term (current) drug therapy
CPT/HCPCS: 36415; 73590; 73610; 73620; 80048; 83605; 85025; 85730; 87040; 96374; 96375; 99284; J1170; J2405

== ENCOUNTER 2021-08-06 22:29 | Emergency (ER) | payer OTHER, SELFPAY ==
[2021-08-06 22:31] VITALS: BP 131/87; PULSE 65; RESP 24; TEMP 36.7; O2SAT 100; BMI 18.2
[2021-08-06] MEDS: ondansetron HCL 4 MG/2 ML VIAL IVPUSH (23:39)
[2021-08-06] MEDS: 0.9 % Sodium Chloride 1,000 ML 999 ML IVCONT (23:39)
[2021-08-06] MEDS: Famotidine/PF 20 MG/2 ML VIAL IVPUSH (23:39)
--- NOTE | 2021-08-06 23:41 | ED_ITS ---
HPI - Nausea/Vomiting/Diarrhea General Chief complaint: Nausea/Vomiting/Diarrhea Stated complaint: Vomiting Time Seen by Provider: 08/06/21 23:24 Source: patient Mode of arrival: ambulatory Limitations: no limitations History of Present Illness HPI Narrative: Patient comes emergency room complaining of nausea and vomiting after eating [employer] at 16:00. Patient also admits to using marijuana. Patient has had multiple episodes of gastritis and vomiting in the past. Patient denies diarrhea, no abdominal pain, no URI or UTI symptoms. Patient denies using drugs Related Data Home Medications Medication Instructions Recorded Confirmed hydromorphone 2 mg tablet mg PO Q6H PRN tab 04/10/21 04/10/21 methocarbamol 750 mg tablet 750 mg PO Q6H PRN 04/10/21 04/10/21 Previous Rx's Medication Instructions Recorded gauze bandage 4 X 4 sponge 10 ea TOPICAL .COMPLEX 30 Days 04/18/21 #1200 ea sodium chloride 0.9 % irrigation See Rx Instructions IRRIGATION 04/18/21 solution (Sterile Saline) DAILY PRN #6000 ml metoclopramide HCl 5 mg tablet 5 mg PO BID #14 tab 08/07/21 (Reglan) Allergies Allergy/AdvReac Type Severity Reaction Status Date / Time No Known Allergies Allergy Verified 04/29/21 01:03 [No Known Allergies*] Review of Systems Review of Systems: Constitutional : No Weight loss, No Fever, No Chills, No Night Sweats, No Fatigue, No Malaise ENT/Mouth : No Hearing loss, No Ear Pain, No Nasal Congestion, No Sinus Pain, No Hoarseness, No sore throat, No Rhinorrhea, No Swallowing Difficulty Eyes: No Eye Pain, No Swelling, No Redness, No Foreign Body, No Discharge, No Vision Changes Cardiovascular : No Chest Pain, No SOB, No Dyspnea on Exertion, No Orthopnea, No Edema, No Palpitations Respiratory : No Cough, No Sputum, No Wheezing, No Smoke Exposure, No Dyspnea Gastrointestinal : Complaining of nausea vomiting, no Diarrhea, No Constipation, No abdominal Pain, No Hematochezia, No Melena Genitourinary : no irregular bleeding, No Dysuria, No Urinary Frequency, No Hematuria, No Urinary Incontinence, No Urgency, No Flank Pain, No Urinary Flow Changes, No Hesitancy Musculoskeletal : No joint pain, No Myalgias, No Joint Swelling Skin : No Skin Lesions, No rash Neuro : No Weakness, No Numbness, No Paresthesias, No Loss of Consciousness, No Dizziness, No Headache Psych : No Anxiety/Panic, No Depression, No SI/HI/AH/VH, No Social Issues, Heme/Lymph: No Bruising, No Bleeding,No Lymphadenopathy Endocrine : No Polyuria, No Polydipsia, No Temperature Intolerance [facility] Past Medical History Medical History Tibial fracture Surgical History History of open reduction and internal fixation (ORIF) procedure Hx of appendicitis Family History Family History Mother Hypertension Anxiety Father No problems noted. Social History Social History Housing: Apartment Alcohol intake: unknown Patient Tobacco Use Status: Never used Tobacco e-Cigarette/Vaping Use: Never Used Second Hand Smoke Exposure: No Use of substances other than those prescribed or required for medical reasons: Yes Substance Use Type: Marijuana Substance Use Frequency: Chronic Longstanding Advance Directives: No Advance Directives Information Provided: No service: No Current occupational status: unemployed Physical Exam Vital Signs: Vital Signs: Last Vital Signs Temp 98.0 F 08/06/21 22:31 Pulse 75 08/07/21 00:03 Resp 20 08/07/21 00:03 BP 125/85 08/07/21 00:03 Pulse Ox 100 08/07/21 00:03 Body Mass Index 18.2 Const: Other: Appearance: Alert. Oriented X3. No acute distress. Eyes: Pupils equal, round and reactive to light. ENT: Pharynx normal. Neck: Normal inspection. Neck supple. No lymph nodes noted. No crepitus CVS: Normal heart rate and rhythm. Pulses normal. Normal S1 and S2 Respiratory: No respiratory distress. Breath sounds normal. No Wheezing. No rales Abdomen: Soft and nontender. No rigidity. No distention. Dry heaving Skin: Skin warm , mildly clammy. Normal skin color. Normal skin turgor. Extremities: No lower extremity edema. No Lacerations. No Rash Neuro: Oriented X 3. No motor deficit. No sensory deficit. Moving all extermities. No slurred speech. Course Course Course Narrative: Patient was p.o. challenged, patient likely having cyclical vomiting from marijuana use. MDM - Nausea/Vomiting/Diarrhea Lab Data Result diagrams: 08/07/21 00:00 08/07/21 00:00 Labs: Lab Results 08/07/21 08/07/21 08/07/21 Range/Units 00:00 00:00 01:13 WBC 13.6 H (4.8-10.8) X10*3/uL RBC 5.11 (4.60-5.80) X10*6/uL Hgb 15.5 (14.0-18.0) g/dl Hct 45.1 (42-52) % MCV 88.3 (80-98) fL MCH 30.3 (27.0-33.0) pg MCHC 34.4 (31.0-36.0) g/dl RDW 13.2 (11.0-16.0) % Plt Count 249 (160-400) X10*3/uL MPV 10.5 (9.4-12.4) fL Immature Gran % (Auto) 0.4 (0.0-0.4) % Neut % (Auto) 88.8 H (45-73) % Lymph % (Auto) 6.0 L (20-40) % [place] % (Auto) 4.6 (2-11) % Eos % (Auto) 0.0 (0-4) % Baso % (Auto) 0.2 (0-2) % Lymph # (Auto) 0.8 L (1.2-4.9) X10*3/uL [place] # (Auto) 0.6 (0.1-1.2) X10*3/uL Eos # (Auto) 0.0 (0.0-0.4) X10*3/uL Baso # (Auto) 0.0 (0.0-0.2) X10*3/uL Abs Immat Gran (auto) 0.06 H (0.00-0.03) X10*3/uL Absolute Neuts (auto) 12.1 H (2.0-8.3) X10*3/uL Absolute Nucleated RBC 0.000 (0.0-0.012) X10*3/uL Nucleated RBC % (auto) 0.0 (0.0-0.2) /100WBC Sodium 142 (135-145) mmol/L Potassium 3.9 (3.3-5.1) mmol/L Chloride 106 (96-108) mmol/L Carbon Dioxide 20 L (22-29) mmol/L Anion Gap 20 (12-20) BUN 8 L (9-16) mg/dL Creatinine 0.84 (0.5-1.4) mg/dL Estim Creat Clear Calc 106.1 Estimated GFR > 60 Random Glucose 126 H (60-115) mg/dL Calcium 10.5 H D (8.4-10.2) mg/dL Total Bilirubin 0.9 (0.0-1.0) mg/dL Direct Bilirubin 0.4 (0.0-0.5) mg/dL AST 19 D (5-37) U/L ALT 16 (0-40) U/L Alkaline Phosphatase 77 (39-117) U/L Total Protein 7.7 (6.5-8.0) g/dL Albumin 5.1 H (3.5-5.0) g/dL Lipase 16 (8-78) U/L Urine Color YELLOW Urine Appearance CLEAR Urine pH 7.5 (5.0-8.0) Ur Specific [place] 1.020 (1.005-1.025) Urine Protein TRACE (NEG-TRACE) MG/DL Urine Glucose (UA) NEG (NEG) MG/DL Urine Ketones >=80 (NEG) MG/DL Urine Blood NEG (NEG) Urine Nitrite NEG (NEG) Ur Leukocyte Esterase NEG (NEG) Urine Opiates Screen (Not Detect) Urine Fentanyl Screen (Not Detect) Ur Barbiturates Screen (Not Detect) Ur Phencyclidine Scrn (Not Detect) Ur Amphetamines Screen (Not Detect) U Benzodiazepines Scrn (Not Detect) Urine Cocaine Screen (Not Detect) U Marijuana (THC) Screen (Not Detect) 08/07/21 Range/Units 01:13 WBC (4.8-10.8) X10*3/uL RBC (4.60-5.80) X10*6/uL Hgb (14.0-18.0) g/dl Hct (42-52) % MCV (80-98) fL MCH (27.0-33.0) pg MCHC (31.0-36.0) g/dl RDW (11.0-16.0) % Plt Count (160-400) X10*3/uL MPV (9.4-12.4) fL Immature Gran % (Auto) (0.0-0.4) % Neut % (Auto) (45-73) % Lymph % (Auto) (20-40) % [place] % (Auto) (2-11) % Eos % (Auto) (0-4) % Baso % (Auto) (0-2) % Lymph # (Auto) (1.2-4.9) X10*3/uL [place] # (Auto) (0.1-1.2) X10*3/uL Eos # (Auto) (0.0-0.4) X10*3/uL Baso # (Auto) (0.0-0.2) X10*3/uL Abs Immat Gran (auto) (0.00-0.03) X10*3/uL Absolute Neuts (auto) (2.0-8.3) X10*3/uL Absolute Nucleated RBC (0.0-0.012) X10*3/uL Nucleated RBC % (auto) (0.0-0.2) /100WBC Sodium (135-145) mmol/L Potassium (3.3-5.1) mmol/L Chloride (96-108) mmol/L Carbon Dioxide (22-29) mmol/L Anion Gap (12-20) BUN (9-16) mg/dL Creatinine (0.5-1.4) mg/dL Estim Creat Clear Calc Estimated GFR Random Glucose (60-115) mg/dL Calcium (8.4-10.2) mg/dL Total Bilirubin (0.0-1.0) mg/dL Direct Bilirubin (0.0-0.5) mg/dL AST (5-37) U/L ALT (0-40) U/L Alkaline Phosphatase (39-117) U/L Total Protein (6.5-8.0) g/dL Albumin (3.5-5.0) g/dL Lipase (8-78) U/L Urine Color Urine Appearance Urine pH (5.0-8.0) Ur Specific [place] (1.005-1.025) Urine Protein (NEG-TRACE) MG/DL Urine Glucose (UA) (NEG) MG/DL Urine Ketones (NEG) MG/DL Urine Blood (NEG) Urine Nitrite (NEG) Ur Leukocyte Esterase (NEG) Urine Opiates Screen Not Detected (Not Detect) Urine Fentanyl Screen Not Detected (Not Detect) Ur Barbiturates Screen Not Detected (Not Detect) Ur Phencyclidine Scrn Not Detected (Not Detect) Ur Amphetamines Screen Not Detected (Not Detect) U Benzodiazepines Scrn Not Detected (Not Detect) Urine Cocaine Screen Not Detected (Not Detect) U Marijuana (THC) Screen POSITIVE H (Not Detect) Discharge Plan Discharge Clinical Impression: Cyclical vomiting Patient Disposition: Home, Self-Care Instructions: Cyclic Vomiting Syndrome (ED) Additional Instructions: Please follow-up with your primary care physician tomorrow. If you have any worsening or new symptoms, please return to the emergency room or call 911 Prescriptions: New metoclopramide HCl [Reglan] 5 mg tablet 5 mg PO BID Qty: 14 RF: 0 No Action gauze bandage 4 X 4 sponge 10 ea topical .COMPLEX 30 Days Qty: 1200 RF: 0 sodium chloride [Sterile Saline] 0.9 % solution See Rx Instructions irrigation DAILY PRN (Reason: wound care) Qty: 6000 RF: 0 methocarbamol 750 mg tablet 750 mg PO Q6H PRNRF: 0 hydromorphone 2 mg tablet PO Q6H PRNRF: 0 Interventions: LWBS Worksheet Last Done: 08/06/21 23:23
[2021-08-07 00:03] VITALS: BP 125/85; PULSE 75; RESP 20; O2SAT 100
[2021-08-07 00:05] LABS: MANUAL DIFF FLAG NO
[2021-08-07 00:07] LABS: Basophils Percent Auto 0.2 % (0-2); Hematocrit 45.1 % (42-52); Hemoglobin 15.5 g/dl (14.0-18.0); Imm Gran Abs Auto 0.06 X10*3/uL (0.00-0.03); Imm Gran Pct Auto 0.4 % (0.0-0.4); Lymphocytes Absolute Auto 0.8 X10*3/uL (1.2-4.9); Mean Corpuscular HGB Conc 34.4 g/dl (31.0-36.0); Mean Corpuscular Hemoglobin 30.3 pg (27.0-33.0); Mean Corpuscular Volume 88.3 fL (80-98); Mean Platelet Volume 10.5 fL (9.4-12.4); Monocytes Absolute Auto 0.6 X10*3/uL (0.1-1.2); Monocytes Percent Auto 4.6 % (2-11); Neutrophils Absolute Auto 12.1 X10*3/uL (2.0-8.3); Neutrophils Percent Auto 88.8 % (45-73); Platelet Count 249 X10*3/uL (160-400); Red Blood Count 5.11 X10*6/uL (4.60-5.80); Red Cell Distribution Width 13.2 % (11.0-16.0); White Blood Count 13.6 X10*3/uL (4.8-10.8)
[2021-08-07 00:30] LABS: Alanine Aminotransferase 16 U/L (0-40); Albumin Level 5.1 g/dL (3.5-5.0); Alkaline Phosphatase 77 U/L (39-117); Anion Gap 20 (12-20); Aspartate Amino Transferase 19 U/L (5-37); Bilirubin Direct 0.4 mg/dL (0.0-0.5); Bilirubin Total 0.9 mg/dL (0.0-1.0); Blood Urea Nitrogen 8 mg/dL (9-16); Calcium 10.5 mg/dL (8.4-10.2); Carbon Dioxide 20 mmol/L (22-29); Chloride 106 mmol/L (96-108); Creatinine Clr Calc Pharmacy 106.1; Estimated Glomerular Filt Rate > 60; Glucose Random 126 mg/dL (60-115); Lipase 16 U/L (8-78); Potassium 3.9 mmol/L (3.3-5.1); Sodium 142 mmol/L (135-145); Total Protein 7.7 g/dL (6.5-8.0)
[2021-08-07 01:22] LABS: Appearance Urine CLEAR; Color Urine YELLOW; Glucose Urine UA NEG (NEG); Leukocyte Esterase Urine NEG (NEG); Nitrite Urine NEG (NEG); PH 7.5 (5.0-8.0); Urine Blood NEG (NEG); Urine Ketones >=80 MG/DL (NEG); Urine Protein TRACE MG/DL (NEG-TRACE)
[2021-08-07 01:24] LABS: UACC Culture Trigger NO
[2021-08-07 01:36] LABS: Amphetamine Screen Urine Not Detected (Not Detect); Barbiturates, Urine Not Detected (Not Detect); Benzodiazepines Screen Urine Not Detected (Not Detect); Cannabinoid Screen Urine POSITIVE (Not Detect); Cocaine Screen Urine Not Detected (Not Detect); Fentanyl, urine Not Detected (Not Detect); Opiate Screen Urine Not Detected (Not Detect); Phencyclidine Screen Urine Not Detected (Not Detect)
[2021-08-07 03:35] VITALS: BP 105/57; PULSE 72; RESP 16; TEMP 36.6; O2SAT 99
== END 2021-08-07 03:36 | disposition home or self-care (01) ==
PROVIDERS: Emergency Provider Emergency Medicine; PCP Internal Medicine
DX: R11.15 Cyclical vomiting syndrome unrelated to migraine (principal); F12.90 Cannabis use, unspecified, uncomplicated
CPT/HCPCS: 36415; 80048; 80076; 80307; 81003; 83690; 85025; 96361; 96374; 96375; 99284; J2405

== ENCOUNTER 2021-08-08 10:34 | Observation (INO) | payer OTHER, SELFPAY ==
[2021-08-08] VITALS (7 sets, daily range): BP systolic 98–120; BP diastolic 47–76; PULSE 58–111; RESP 14–22; TEMP 36.6–37.5; O2SAT 98–99; BMI 18.8
--- NOTE | ~2021-08-08 | CT_ITS ---
EXAMINATION: CT ABDOMEN AND PELVIS WITHOUT CONTRAST CLINICAL INFORMATION: Persistent nausea and vomiting COMPARISON: Previous CT of the abdomen and pelvis September 2020 TECHNIQUE: Multidetector volumetric imaging was performed from the superior aspect of the liver through the pubic symphysis. Sagittal and coronal reformatted images were obtained on the technologist's workstation. This CT examination was performed using dose optimization techniques as appropriate, variously including the following: *Automated exposure control *Adjustment of mA and/or kV according to patient size (this includes techniques or standardized protocols for targeted exams where dose is matched to indication/reason for exam; i.e. extremities or head) *Use of iterative reconstruction technique DLP: 303 mGy-cm FINDINGS: LUNG BASES: The visualized lung bases are unremarkable. LIVER, GALLBLADDER, AND BILIARY TREE: The liver is normal in size, shape, and attenuation. No focal hepatic lesion or biliary ductal dilatation is present. The gallbladder is unremarkable with no evidence of radiopaque gallstones, gallbladder wall thickening, or obvious pericholecystic inflammatory changes. PANCREAS: Unremarkable. SPLEEN: Unremarkable. ADRENAL GLANDS: Unremarkable. KIDNEYS AND URETERS: The kidneys are normal in size, shape, and attenuation. No hydronephrosis, hydroureter, or calculi seen. No perinephric stranding. BLADDER: Unremarkable. GASTROINTESTINAL TRACT: The small and large bowel are unremarkable. The appendix is not seen and may have been removed.. ABDOMINAL WALL: No significant hernia is appreciated. LYMPH NODES: Normal. VASCULAR: Unremarkable. PELVIC VISCERA: Unremarkable. OSSEOUS STRUCTURES: Unremarkable. CT/CT abdomen pelvis wo con IMPRESSION: Unremarkable exam.
--- NOTE | 2021-08-08 11:38 | ED_ITS ---
HPI - Abdominal Pain General Chief Complaint: Abdominal Pain Stated Complaint: vomiting Time Seen by Provider: 08/08/21 11:37 Source: patient and family (Mother) Mode of arrival: ambulatory Limitations: no limitations History of Present Illness HPI narrative: 21 years old male came in for evaluation of persistent abdominal pain, vomiting. Patient's symptoms started 2 days ago described as epigastric abdominal pain followed by persistent of vomiting, pain is localized to epigastric area with no radiation, pain is associated with vomiting which make the pain worse, nothing really patient's symptoms, no similar previous symptoms. Patient was seen in the ED 2 days ago for same symptoms was discharged home after he felt temporary improvement. Patient was past surgical history of appendectomy. Patient admitted to eat [employer] meal before symptoms started, patient also admitted to smoking marijuana but no other drugs. Related Data Home Medications Medication Instructions Recorded Confirmed hydromorphone 2 mg tablet mg PO Q6H PRN tab 04/10/21 04/10/21 methocarbamol 750 mg tablet 750 mg PO Q6H PRN 04/10/21 04/10/21 Previous Rx's Medication Instructions Recorded gauze bandage 4 X 4 sponge 10 ea TOPICAL .COMPLEX 30 Days 04/18/21 #1200 ea sodium chloride 0.9 % irrigation See Rx Instructions IRRIGATION 04/18/21 solution (Sterile Saline) DAILY PRN #6000 ml metoclopramide HCl 5 mg tablet 5 mg PO BID #14 tab 08/07/21 (Reglan) Allergies Allergy/AdvReac Type Severity Reaction Status Date / Time No Known Allergies Allergy Verified 08/08/21 10:41 [No Known Allergies*] Review of Systems Review of Systems All other systems are reviewed and are negative Constitutional: Reports as per HPI and Reports no additional constitutional complaints Eyes: Reports as per HPI and Reports no additional eye complaints Reports system reviewed and no additional complaints, except as documented Cardiovascular: Reports as per HPI and Reports no additional cardiovascular complaints Respiratory: Reports as per HPI and Reports no additional respiratory complaints Gastrointestinal: Reports as per HPI and Reports no additional gastrointestinal complaints Genitourinary: Reports no additional female genitourinary complaints Musculoskeletal: Reports no additional musculoskeletal complaints Skin/Breast: Reports system reviewed and no additional complaints, except as docu Psychiatric: Reports no additional psychiatric complaints Endocrine: Reports no additional endocrine complaints Hematologic/Lymphatic: Reports no additional hematologic/lymphatic complaints Allergic/Immunologic: Reports no additional allergic/immunologic complaints Reports system reviewed and no additional complaints, except as documented and Reports Abnormal speech present Physical Exam Vital Signs: Vital Signs: Last Vital Signs Temp 97.9 F 08/08/21 10:41 Pulse 76 08/08/21 13:37 Resp 14 08/08/21 13:37 BP 100/61 08/08/21 13:37 Pulse Ox 99 08/08/21 13:37 Body Mass Index 18.8 Vital signs have been reviewed as appeared to be correct. Blood pressure normal. Heart rate normal. Respiration rate normal. Temperature normal. Oxygen saturation normal. Appearance: Alert. Oriented X3. No acute distress. Head: Normal external exam. Normocephalic. Atraumatic. No Mercer signs noted. No raccoon eyes noted Eyes: PERRLA. EOMI. Conjunctiva and sclera normal. Eyelids normal. ENT: TM's Normal. Pharynx normal. Uvula midline. Moist mucous membranes. No trismus noted. No drooling noted. No muffled voice noted. Neck: Normal inspection. Neck supple. FROM. No adenopathy. Thyroid Normal. No meningeal signs. No neck mass noted. CVS: Normal heart rate and rhythm. Heart sound normal. No murmurs noted. Pulses normal throughout. Respiratory: No respiratory distress. Painless inspiration. Breath sounds normal. No wheezes/rales/rhonchi noted. Chest nontender. No accessory muscle usage noted or decreased air movement noted. Abdomen: Soft and nontender. Bowel sounds normal in all 4 quadrants. No distention noted. No organomegaly noted. No visible injury noted. Back: No CVA tenderness. Full range of motion noted. Skin: Skin warm and dry. Normal skin color. Normal skin turgor. No rashes/lesions/lacerations noted. Extremities: No lower extremity edema. Extremities exhibit normal range of motion. Extremities nontender. Neuro: Oriented X 3. Cranial nerve exam: II-XII are grossly intact No motor deficit. No sensory deficit. Reflexes normal. Course Course Course Narrative: Assessment and plan. 21-year-old male return to the ED for persistent vomiting, patient has a history of smoking marijuana, possible contaminated food from [employer] before the symptoms started, patient is unable to tolerate p.o. intake. Doing slightly better with IV fluid. MDM - Abdominal Pain Medical Records Attestation: I reviewed the patient's medical records. Lab Data Attestation: I reviewed the patient's lab results. Result diagrams: 08/08/21 11:56 08/08/21 11:56 Labs: Lab Results 08/08/21 08/08/21 Range/Units 11:56 11:56 WBC 16.6 H (4.8-10.8) X10*3/uL RBC 5.62 (4.60-5.80) X10*6/uL Hgb 16.8 (14.0-18.0) g/dl Hct 49.9 (42-52) % MCV 88.8 (80-98) fL MCH 29.9 (27.0-33.0) pg MCHC 33.7 (31.0-36.0) g/dl RDW 13.4 (11.0-16.0) % Plt Count 296 (160-400) X10*3/uL MPV 10.9 (9.4-12.4) fL Immature Gran % (Auto) 0.4 (0.0-0.4) % Neut % (Auto) 85.0 H (45-73) % Lymph % (Auto) 10.1 L (20-40) % [place] % (Auto) 4.2 (2-11) % Eos % (Auto) 0.1 (0-4) % Baso % (Auto) 0.2 (0-2) % Lymph # (Auto) 1.7 (1.2-4.9) X10*3/uL [place] # (Auto) 0.7 (0.1-1.2) X10*3/uL Eos # (Auto) 0.0 (0.0-0.4) X10*3/uL Baso # (Auto) 0.0 (0.0-0.2) X10*3/uL Abs Immat Gran (auto) 0.07 H (0.00-0.03) X10*3/uL Absolute Neuts (auto) 14.1 H (2.0-8.3) X10*3/uL Absolute Nucleated RBC 0.000 (0.0-0.012) X10*3/uL Nucleated RBC % (auto) 0.0 (0.0-0.2) /100WBC Sodium 142 (135-145) mmol/L Potassium 4.5 (3.3-5.1) mmol/L Chloride 104 (96-108) mmol/L Carbon Dioxide 22 (22-29) mmol/L Anion Gap 21 H (12-20) BUN 14 D (9-16) mg/dL Creatinine 1.02 (0.5-1.4) mg/dL Estim Creat Clear Calc 87.4 Estimated GFR > 60 Random Glucose 114 (60-115) mg/dL Calcium 10.4 H (8.4-10.2) mg/dL Total Bilirubin 1.3 H (0.0-1.0) mg/dL Direct Bilirubin 0.4 (0.0-0.5) mg/dL AST 28 D (5-37) U/L ALT 28 (0-40) U/L Alkaline Phosphatase 82 (39-117) U/L Total Protein 8.4 H (6.5-8.0) g/dL Albumin 5.3 H (3.5-5.0) g/dL Lipase 14 (8-78) U/L Discharge Plan Discharge Clinical Impression: Intractable vomiting Patient Disposition: Admitted As Inpatient Prescriptions: No Action gauze bandage 4 X 4 sponge 10 ea topical .COMPLEX 30 Days Qty: 1200 RF: 0 sodium chloride [Sterile Saline] 0.9 % solution See Rx Instructions irrigation DAILY PRN (Reason: wound care) Qty: 6000 RF: 0 metoclopramide HCl [Reglan] 5 mg tablet 5 mg PO BID Qty: 14 RF: 0 methocarbamol 750 mg tablet 750 mg PO Q6H PRNRF: 0 hydromorphone 2 mg tablet PO Q6H PRNRF: 0 PMFSH Past Medical History Medical History Tibial fracture Surgical History History of open reduction and internal fixation (ORIF) procedure Hx of appendicitis Family History Family History Mother Hypertension Anxiety Father No problems noted. Social History Social History Housing: Apartment Alcohol intake: never Patient Tobacco Use Status: Never used Tobacco e-Cigarette/Vaping Use: Never Used Second Hand Smoke Exposure: No Use of substances other than those prescribed or required for medical reasons: Yes Substance Use Type: Marijuana Last Used Substance: Days (ago) Any prior treatment program specific to substance use: No Advance Directives: No Advance Directives Information Provided: No service: No Current occupational status: unemployed
[2021-08-08 12:05] LABS: MANUAL DIFF FLAG NO
[2021-08-08] MEDS: 0.9 % Sodium Chloride 1,000 ML 999 ML IVCONT ×2 (12:07→13:23)
[2021-08-08] MEDS: ondansetron HCL 4 MG/2 ML VIAL IVPUSH ×2 (12:07→23:24)
[2021-08-08] MEDS: Famotidine/PF 20 MG/2 ML VIAL IVPUSH (12:07)
[2021-08-08 12:22] LABS: Basophils Percent Auto 0.2 % (0-2); Eosinophils Percent Auto 0.1 % (0-4); Hematocrit 49.9 % (42-52); Hemoglobin 16.8 g/dl (14.0-18.0); Imm Gran Abs Auto 0.07 X10*3/uL (0.00-0.03); Imm Gran Pct Auto 0.4 % (0.0-0.4); Lymphocytes Absolute Auto 1.7 X10*3/uL (1.2-4.9); Lymphocytes Percent Auto 10.1 % (20-40); Mean Corpuscular HGB Conc 33.7 g/dl (31.0-36.0); Mean Corpuscular Hemoglobin 29.9 pg (27.0-33.0); Mean Corpuscular Volume 88.8 fL (80-98); Mean Platelet Volume 10.9 fL (9.4-12.4); Monocytes Absolute Auto 0.7 X10*3/uL (0.1-1.2); Monocytes Percent Auto 4.2 % (2-11); Neutrophils Absolute Auto 14.1 X10*3/uL (2.0-8.3); Platelet Count 296 X10*3/uL (160-400); Red Blood Count 5.62 X10*6/uL (4.60-5.80); Red Cell Distribution Width 13.4 % (11.0-16.0); White Blood Count 16.6 X10*3/uL (4.8-10.8)
[2021-08-08 12:44] LABS: Alanine Aminotransferase 28 U/L (0-40); Albumin Level 5.3 g/dL (3.5-5.0); Alkaline Phosphatase 82 U/L (39-117); Anion Gap 21 (12-20); Aspartate Amino Transferase 28 U/L (5-37); Bilirubin Direct 0.4 mg/dL (0.0-0.5); Bilirubin Total 1.3 mg/dL (0.0-1.0); Blood Urea Nitrogen 14 mg/dL (9-16); Calcium 10.4 mg/dL (8.4-10.2); Carbon Dioxide 22 mmol/L (22-29); Chloride 104 mmol/L (96-108); Creatinine Clr Calc Pharmacy 87.4; Estimated Glomerular Filt Rate > 60; Glucose Random 114 mg/dL (60-115); Lipase 14 U/L (8-78); Potassium 4.5 mmol/L (3.3-5.1); Sodium 142 mmol/L (135-145); Total Protein 8.4 g/dL (6.5-8.0)
[2021-08-08] MEDS: Metoclopramide HCl 10 MG/2 ML VIAL IVPUSH (13:19)
[2021-08-08] MEDS: LORazepam 2 MG/ML VIAL 1 MG IVPUSH (13:22)
[2021-08-08 14:24] LABS: COVID-19 Test Negative (Negative); IDNOW Serial# 9DD0AD1C
--- NOTE | 2021-08-08 15:08 | PM.IMHP ---
History of Present Illness Date of Service: 08/08/21 Chief Complaint: vomitting 21M presented with 2 days nausea and vomitting. Patient was in the ED day prior to presentation. At that point was sent home with some Reglan. However, still not tolerating p.o., still vomiting food contents, some abdominal pain with retching but not primary symptom, therefore he came back in. in ED labs consistent with dehydration, calcium 10.4, albumin 5.3. Review of Systems Review of Systems: Constitutional: Denies fever, denies Chills Eyes: denies blurry vision ENT: denies sore throat CVS: denies chest pain Respiratory: Denies dyspnea GI: abdominal pain : denies dysuria MSK: denies neck pain Skin: denies rash Neuro: denies specific motor weakness Psych: denies suicidal ideation Endocrine: denies heat/cold intolerance Hematologic: denies easy bleeding Allergy: denies hives [facility] Medical History Boxer's fracture with routine healing Tibial fracture Family History Mother Hypertension Anxiety Father No problems noted. Pertinent family history: . Surgical History History of open reduction and internal fixation (ORIF) procedure Hx of appendicitis Social History Housing: Apartment Alcohol intake: never Patient Tobacco Use Status: Never used Tobacco e-Cigarette/Vaping Use: Never Used Second Hand Smoke Exposure: No Use of substances other than those prescribed or required for medical reasons: Yes Substance Use Type: Marijuana Last Used Substance: Days (ago) Any prior treatment program specific to substance use: No Advance Directives: No Advance Directives Information Provided: No service: No Current occupational status: unemployed Meds Allergies Allergy/AdvReac Type Severity Reaction Status Date / Time No Known Allergies Allergy Verified 08/08/21 10:41 [No Known Allergies*] Active Medications: Current Medications Lactated Ringer's (Lr) 1,000 mls @ 100 mls/hr IVCONT .Q10H [facility] Omeprazole (Omeprazole 40 Mg Capsule.Dr) 40 mg PO DAILY@0630 [facility] Ondansetron HCl (Ondansetron Hcl 4 Mg/2 Ml Vial) 4 mg IVPUSH Q8H PRN PRN Reason: nausea Sodium Chloride (0.9 % Sodium Chloride Flush 3 Ml Syringe) 3 ml IVFLUSH QSHIFT [place] Physical Exam Vital Signs and Narrative: Vital Signs: Last Vital Signs Temp 97.9 F 08/08/21 10:41 Pulse 76 08/08/21 13:37 Resp 14 08/08/21 13:37 BP 100/61 08/08/21 13:37 Pulse Ox 99 08/08/21 13:37 Body Mass Index 18.8 General: lethargic, no acite distress HEENT: atraumatic Neck: normal to visual inspection CVS: S1, S2, RRR Resp: CTA bilateral Chest: non tender GI: soft, very mildly tender, non distended : no CVA tenderness Skin: no rashes Extremities: no edema Neuro: Oriented X3, grossly intact Psych: cooperative Results Labs CBC and Chem 7: 08/08/21 11:56 08/08/21 11:56 Labs: Laboratory Results - last 24 hr 08/08/21 08/08/21 08/08/21 11:56 11:56 14:04 MCV 88.8 MCH 29.9 MCHC 33.7 RDW 13.4 Plt Count 296 MPV 10.9 Immature Gran % (Auto) 0.4 Neut % (Auto) 85.0 H Lymph % (Auto) 10.1 L [place] % (Auto) 4.2 Eos % (Auto) 0.1 Baso % (Auto) 0.2 Lymph # (Auto) 1.7 [place] # (Auto) 0.7 Eos # (Auto) 0.0 Baso # (Auto) 0.0 Abs Immat Gran (auto) 0.07 H Absolute Neuts (auto) 14.1 H Absolute Nucleated RBC 0.000 Nucleated RBC % (auto) 0.0 Anion Gap 21 H Estim Creat Clear Calc 87.4 Estimated GFR > 60 Random Glucose 114 Calcium 10.4 H Total Bilirubin 1.3 H Direct Bilirubin 0.4 AST 28 D ALT 28 Alkaline Phosphatase 82 Total Protein 8.4 H Albumin 5.3 H Lipase 14 COVID-19 (SHAYE) Negative COVID-19 Clin Com See Note Assessment and Plan (1) Intractable vomiting: Qualifiers: Nausea presence: with nausea Status: Acute 21M presented with intractable nausea vomiting. Intractable nausea vomiting, dehydration Gastritis versus cannaboid induced emesis. iv hydration, antiemetics, monitor labs Quality Stroke Does the patient have a stroke diagnosis?: No VTE Prior VTE?: No VTE Risk Level:: Medical - low VTE Device Contraindication: Treatment Not Indicated VTE Drug Contraindication: Treatment Not Indicated
[2021-08-08] MEDS: 0.9 % Sodium Chloride Flush 3 ML SYRINGE IVFLUSH (16:22)
[2021-08-08] MEDS: Lactated Ringers 1,000 ML 100 ML IVCONT (16:24)
--- NOTE | 2021-08-08 16:52 | PC.NURSE ---
Pt alert and oriented x4, calm and cooperative. Pt sleeping through most of care. Pt denies pain. No vomiting noted at this time. IV intact, vitals stable. Pt sleeping in stretcher at this time, will continue to monitor.
--- NOTE | 2021-08-08 19:20 | PC.NURSE ---
Pt alert and oriented x4, calm and cooperative. Pt denies pain. Pt sleeping most of shift. IV intact infusing fluids. Vitals stable. Pt aware of being admitted. Attempted to give report, waiting for call back.
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
[2021-08-09] MEDS: Lactated Ringers 1,000 ML 100 ML IVCONT ×2 (02:36→22:41)
[2021-08-09 04:00] VITALS: BP 123/62; PULSE 88; RESP 16; TEMP 36.2; O2SAT 98
[2021-08-09] MEDS: Omeprazole 40 MG CAPSULE.DR PO (05:35)
[2021-08-09 05:52] LABS: Hematocrit 38.5 % (42-52); Hemoglobin 13.3 g/dl (14.0-18.0); Mean Corpuscular HGB Conc 34.5 g/dl (31.0-36.0); Mean Corpuscular Hemoglobin 30.2 pg (27.0-33.0); Mean Corpuscular Volume 87.3 fL (80-98); Platelet Count 180 X10*3/uL (160-400); Red Blood Count 4.41 X10*6/uL (4.60-5.80); Red Cell Distribution Width 13.1 % (11.0-16.0); White Blood Count 8.6 X10*3/uL (4.8-10.8)
[2021-08-09 06:17] LABS: Anion Gap 12 (12-20); Blood Urea Nitrogen 8 mg/dL (9-16); Calcium 8.3 mg/dL (8.4-10.2); Carbon Dioxide 23 mmol/L (22-29); Chloride 108 mmol/L (96-108); Creatinine Clr Calc Pharmacy 129.2; Estimated Glomerular Filt Rate > 60; Glucose Fasting 89 mg/dL (60-99); Magnesium 1.8 mg/dL (1.6-2.6); Potassium 3.7 mmol/L (3.3-5.1); Sodium 139 mmol/L (135-145)
[2021-08-09 07:27] VITALS: BP 115/55; PULSE 68; RESP 17; TEMP 37; O2SAT 98
[2021-08-09] MEDS: ondansetron HCL 4 MG/2 ML VIAL IVPUSH (08:13)
[2021-08-09 11:00] VITALS: BP 131/80; PULSE 64; RESP 17; TEMP 37.1; O2SAT 100
[2021-08-09 11:13] VITALS: BMI 18.8
[2021-08-09] MEDS: Morphine Sulfate 2 MG/ML CARTRIDGE IVPUSH (11:13)
--- NOTE | 2021-08-09 13:07 | P.PNIM_ITS ---
Subjective Subjective Date of Service: 08/09/21 Interval History: cc: jenyna interval history: still not tolerating po Cardiovascular Cardiovascular: Reports no additional cardiovascular complaints Respiratory Respiratory: Reports no additional respiratory complaints Physical Exam Vital Signs: Vital Signs: Last Vital Signs Temp 98.7 F 08/09/21 11:00 Pulse 64 08/09/21 11:00 Resp 17 08/09/21 11:00 BP 131/80 08/09/21 11:00 Pulse Ox 100 08/09/21 11:00 Body Mass Index 18.8 General: AO X 3, no acute distress Resp: CTA bilateral, no accessory muscles used CVS: S1,S2,RRR GI: soft, non tender, non distended Neuro: motor grossly intact, alert Psych: appropriate affect, appropriate insight Objective Data Active Medications Lactated Ringer's (Lr) 1,000 mls @ 100 mls/hr IVCONT .Q10H [facility] Last Infusion: 08/09/21 12:51 Dose: 0 mls/hr Documented by: JAVIER Morphine Sulfate (Morphine Sulfate 2 Mg/Ml Cartridge) 2 mg IVPUSH Q4H PRN; Protocol PRN Reason: pain Last Admin: 08/09/21 11:13 Dose: 2 mg Documented by: STEVE Omeprazole (Omeprazole 40 Mg Capsule.Dr) 40 mg PO DAILY@0630 [facility] Last Admin: 08/09/21 05:35 Dose: 40 mg Documented by: CLAUDIA Ondansetron HCl (Ondansetron Hcl 4 Mg/2 Ml Vial) 4 mg IVPUSH Q8H PRN PRN Reason: nausea Last Admin: 08/09/21 08:13 Dose: 4 mg Documented by: STEVE Sodium Chloride (0.9 % Sodium Chloride Flush 3 Ml Syringe) 3 ml IVFLUSH QSHIFT [facility] Last Admin: 08/09/21 06:53 Dose: Not Given Documented by: JAVIER Non-Admin Reason: IV Running Labs CBC & Chem 7: 08/09/21 05:37 08/09/21 05:37 Labs: Laboratory Results - last 24 hr 08/08/21 08/09/21 08/09/21 14:04 05:37 05:37 MCV 87.3 MCH 30.2 MCHC 34.5 RDW 13.1 Plt Count 180 D MPV 11.0 Absolute Nucleated RBC 0.000 Nucleated RBC % (auto) 0.0 Anion Gap 12 Estim Creat Clear Calc 129.2 Estimated GFR > 60 Fasting Glucose 89 Calcium 8.3 L D Magnesium 1.8 COVID-19 ([facility]) Negative COVID-19 Clin Com See Note Assessment and Plan (1) Intractable vomiting: Status: Acute (2) Gastritis: Status: Acute Assessment and Plan: 21M presented with intractable nausea vomiting. Intractable nausea vomiting, dehydration Gastritis versus cannaboid induced emesis. still not taking po continue iv hydration, antiemetics, monitor labs Quality Stroke Does the patient have a stroke diagnosis?: No VTE Prior VTE?: No VTE Risk Level:: Medical - low VTE Device Contraindication: Treatment Not Indicated VTE Drug Contraindication: Treatment Not Indicated
[2021-08-09 15:33] VITALS: BP 129/66; PULSE 76; RESP 16; TEMP 37.1; O2SAT 99
[2021-08-09 19:40] VITALS: BP 114/64; PULSE 73; RESP 16; TEMP 37.2; O2SAT 98
[2021-08-09] MEDS: 0.9 % Sodium Chloride Flush 3 ML SYRINGE IVFLUSH (21:47)
[2021-08-09 23:37] VITALS: BP 113/75; PULSE 77; RESP 16; TEMP 36.8; O2SAT 98
[2021-08-10 03:42] VITALS: BP 118/57; PULSE 56; RESP 16; TEMP 36.1; O2SAT 99
[2021-08-10] MEDS: Omeprazole 40 MG CAPSULE.DR PO (05:33)
[2021-08-10 05:57] LABS: Hematocrit 42.2 % (42-52); Hemoglobin 14.3 g/dl (14.0-18.0); Mean Corpuscular HGB Conc 33.9 g/dl (31.0-36.0); Mean Corpuscular Hemoglobin 29.8 pg (27.0-33.0); Mean Corpuscular Volume 87.9 fL (80-98); Mean Platelet Volume 11.4 fL (9.4-12.4); Platelet Count 205 X10*3/uL (160-400); Red Cell Distribution Width 12.6 % (11.0-16.0); White Blood Count 7.8 X10*3/uL (4.8-10.8)
[2021-08-10 06:39] LABS: Anion Gap 13 (12-20); Blood Urea Nitrogen 6 mg/dL (9-16); Calcium 8.8 mg/dL (8.4-10.2); Carbon Dioxide 24 mmol/L (22-29); Chloride 106 mmol/L (96-108); Creatinine Clr Calc Pharmacy 125.6; Estimated Glomerular Filt Rate > 60; Glucose Fasting 91 mg/dL (60-99); Potassium 3.6 mmol/L (3.3-5.1); Sodium 139 mmol/L (135-145)
[2021-08-10 07:35] VITALS: BP 153/88; PULSE 65; RESP 16; TEMP 36.3; O2SAT 100
[2021-08-10] MEDS: Lactated Ringers 1,000 ML 100 ML IVCONT ×2 (07:41→19:47)
[2021-08-10] MEDS: Morphine Sulfate 2 MG/ML CARTRIDGE IVPUSH ×2 (09:12→13:19)
[2021-08-10] MEDS: ondansetron HCL 4 MG/2 ML VIAL IVPUSH (09:16)
[2021-08-10 11:59] VITALS: BP 161/85; PULSE 60; RESP 17; TEMP 36.4; O2SAT 99
[2021-08-10 13:19] VITALS: RESP 18
--- NOTE | 2021-08-10 13:38 | MHC.CLN ---
F/U PATIENT WITH GASTRITIS AND NOT TOLERATING PO PER MD. ORDER IN PLACE FOR ENSURE BID TO INCREASE NUTRITIONAL INTAKE TOLERATED. PROVIDES 700 KCAL, 40 G PROTEIN. CONTINUE TO FOLLOW DIET TOLERANCE/INTAKE.
--- NOTE | 2021-08-10 14:27 | P.PNIM_ITS ---
Subjective Subjective Date of Service: 08/10/21 Interval History: cc: n/v interval history: still unable to tolerate po Cardiovascular Cardiovascular: Reports no additional cardiovascular complaints Respiratory Respiratory: Reports no additional respiratory complaints Physical Exam Vital Signs: Vital Signs: Last Vital Signs Temp 97.6 F 08/10/21 11:59 Pulse 60 08/10/21 11:59 Resp 18 08/10/21 13:19 BP 161/85 H 08/10/21 11:59 Pulse Ox 99 08/10/21 11:59 Body Mass Index 18.8 General: AO X 3, uncomfortable Resp: CTA bilateral, no accessory muscles used CVS: S1,S2,RRR GI: soft, non tender, non distended Neuro: motor grossly intact, alert Psych: appropriate affect, appropriate insight Objective Data Active Medications Lactated Ringer's (Lr) 1,000 mls @ 100 mls/hr IVCONT .Q10H [facility] Last Admin: 08/10/21 07:41 Dose: 100 mls/hr Documented by: DWIGHT Morphine Sulfate (Morphine Sulfate 2 Mg/Ml Cartridge) 2 mg IVPUSH Q4H PRN; Protocol PRN Reason: pain Last Admin: 08/10/21 13:19 Dose: 2 mg Documented by: MARGARITO Omeprazole (Omeprazole 40 Mg Capsule.Dr) 40 mg PO DAILY@0630 [facility] Last Admin: 08/10/21 05:33 Dose: 40 mg Documented by: CLAUDIA Ondansetron HCl (Ondansetron Hcl 4 Mg/2 Ml Vial) 4 mg IVPUSH Q8H PRN PRN Reason: nausea Last Admin: 08/10/21 09:16 Dose: 4 mg Documented by: DWIGHT Sodium Chloride (0.9 % Sodium Chloride Flush 3 Ml Syringe) 3 ml IVFLUSH QSHIFT [facility] Last Admin: 08/10/21 09:18 Dose: Not Given Documented by: MARGARITO Non-Admin Reason: IV Running Labs CBC & Chem 7: 08/10/21 05:33 08/10/21 05:33 Labs: Laboratory Results - last 24 hr 08/10/21 08/10/21 05:33 05:33 MCV 87.9 MCH 29.8 MCHC 33.9 RDW 12.6 Plt Count 205 MPV 11.4 Absolute Nucleated RBC 0.000 Nucleated RBC % (auto) 0.0 Anion Gap 13 Estim Creat Clear Calc 125.6 Estimated GFR > 60 Fasting Glucose 91 Calcium 8.8 D Assessment and Plan (1) Intractable vomiting: Status: Acute (2) Gastritis: Status: Acute Assessment and Plan: 21M presented with intractable nausea vomiting. Intractable nausea vomiting, dehydration Gastritis versus cannaboid induced emesis. still not taking po continue iv hydration, antiemetics, monitor labs will continue to observe until able to adequately hydrate on own. Quality Stroke Does the patient have a stroke diagnosis?: No VTE Prior VTE?: No VTE Risk Level:: Medical - low VTE Device Contraindication: Treatment Not Indicated VTE Drug Contraindication: Treatment Not Indicated
[2021-08-10 16:00] VITALS: BP 149/87; PULSE 51; RESP 18; TEMP 36.8; O2SAT 100
[2021-08-10 19:52] VITALS: BP 134/82; PULSE 95; RESP 16; TEMP 37.5; O2SAT 97
[2021-08-11] VITALS (7 sets, daily range): BP systolic 109–151; BP diastolic 62–84; PULSE 48–91; RESP 16–18; TEMP 36.7–37.6; O2SAT 96–100
[2021-08-11] MEDS: Lactated Ringers 1,000 ML 100 ML IVCONT ×2 (05:13→16:43)
[2021-08-11 06:14] LABS: Hemoglobin 14.8 g/dl (14.0-18.0); Mean Corpuscular HGB Conc 33.6 g/dl (31.0-36.0); Mean Corpuscular Volume 89.2 fL (80-98); Mean Platelet Volume 11.2 fL (9.4-12.4); Platelet Count 207 X10*3/uL (160-400); Red Blood Count 4.93 X10*6/uL (4.60-5.80); Red Cell Distribution Width 12.7 % (11.0-16.0); White Blood Count 7.6 X10*3/uL (4.8-10.8)
[2021-08-11 06:47] LABS: Alanine Aminotransferase 18 U/L (0-40); Albumin Level 4.1 g/dL (3.5-5.0); Alkaline Phosphatase 71 U/L (39-117); Anion Gap 11 (12-20); Aspartate Amino Transferase 13 U/L (5-37); Bilirubin Direct 0.3 mg/dL (0.0-0.5); Bilirubin Total 0.7 mg/dL (0.0-1.0); Blood Urea Nitrogen 5 mg/dL (9-16); Calcium 9.1 mg/dL (8.4-10.2); Carbon Dioxide 28 mmol/L (22-29); Chloride 105 mmol/L (96-108); Creatinine Clr Calc Pharmacy 112.9; Estimated Glomerular Filt Rate > 60; Glucose Fasting 92 mg/dL (60-99); Magnesium 1.9 mg/dL (1.6-2.6); Potassium 3.8 mmol/L (3.3-5.1); Sodium 140 mmol/L (135-145); Total Protein 6.2 g/dL (6.5-8.0)
[2021-08-11] MEDS: ondansetron HCL 4 MG/2 ML VIAL IVPUSH (07:38)
[2021-08-11] MEDS: 0.9 % Sodium Chloride Flush 3 ML SYRINGE IVFLUSH ×2 (07:38→16:45)
[2021-08-11] MEDS: Morphine Sulfate 2 MG/ML CARTRIDGE IVPUSH (08:59)
--- NOTE | 2021-08-11 10:48 | HO.PM.IMPN ---
Subjective Subjective Date of Service: 08/11/21 Interval History: cc: n/v interval history: still unable to tolerate po Cardiovascular Cardiovascular: Reports no additional cardiovascular complaints Respiratory Respiratory: Reports no additional respiratory complaints Physical Exam Vital Signs: Vital Signs: Last Vital Signs Temp 99.0 F 08/11/21 09:10 Pulse 48 L 08/11/21 09:10 Resp 18 08/11/21 09:10 BP 144/84 H 08/11/21 09:10 Pulse Ox 100 08/11/21 09:10 Body Mass Index 18.8 General: AO X 3, uncomfortable Resp:? CTA bilateral, no accessory muscles used CVS: S1,S2,RRR GI: soft, non tender, non distended Neuro:? motor grossly intact, alert Psych: appropriate affect, appropriate insight? Objective Data Active Medications Lactated Ringer's (Lr) 1,000 mls @ 100 mls/hr IVCONT .Q10H [facility] Last Admin: 08/11/21 05:13 Dose: 100 mls/hr Documented by: BRE Morphine Sulfate (Morphine Sulfate 2 Mg/Ml Cartridge) 2 mg IVPUSH Q4H PRN; Protocol PRN Reason: pain Last Admin: 08/11/21 08:59 Dose: 2 mg Documented by: MARGARITO Omeprazole (Omeprazole 40 Mg Capsule.) 40 mg PO DAILY@0630 [facility] Last Admin: 08/11/21 07:41 Dose: Not Given Documented by: MARGARITO Non-Admin Reason: Patient Refused Ondansetron HCl (Ondansetron Hcl 4 Mg/2 Ml Vial) 4 mg IVPUSH Q8H PRN PRN Reason: nausea Last Admin: 08/11/21 07:38 Dose: 4 mg Documented by: MARGARITO Sodium Chloride (0.9 % Sodium Chloride Flush 3 Ml Syringe) 3 ml IVFLUSH QSHIFT [facility] Last Admin: 08/11/21 07:38 Dose: 3 ml Documented by: MARGARITO Labs CBC & Chem 7: 08/11/21 05:54 08/11/21 05:54 Labs: Laboratory Results - last 24 hr 08/11/21 08/11/21 05:54 05:54 MCV 89.2 MCH 30.0 MCHC 33.6 RDW 12.7 Plt Count 207 MPV 11.2 Absolute Nucleated RBC 0.000 Nucleated RBC % (auto) 0.0 Anion Gap 11 L Estim Creat Clear Calc 112.9 Estimated GFR > 60 Fasting Glucose 92 Calcium 9.1 Magnesium 1.9 Total Bilirubin 0.7 Direct Bilirubin 0.3 AST 13 D ALT 18 Alkaline Phosphatase 71 Total Protein 6.2 L D Albumin 4.1 D Assessment and Plan (1) Intractable vomiting: Status: Acute (2) Gastritis: Status: Acute Assessment and Plan: 21M presented with intractable nausea vomiting. Intractable nausea vomiting, dehydration Gastritis versus cannaboid induced emesis. only slightly releived by hot shower still not taking po continue iv hydration, antiemetics, monitor labs will check CT abd Quality Stroke Does the patient have a stroke diagnosis?: No VTE Prior VTE?: No VTE Risk Level:: Medical - low VTE Device Contraindication: Treatment Not Indicated VTE Drug Contraindication: Treatment Not Indicated
[2021-08-12] VITALS: BP 135/75; PULSE 82; RESP 17; TEMP 36.7; O2SAT 99
[2021-08-12] MEDS: Lactated Ringers 1,000 ML 100 ML IVCONT ×3 (02:50→23:36)
[2021-08-12 08:00] VITALS: BP 155/101; PULSE 61; RESP 16; TEMP 36.6; O2SAT 99
[2021-08-12] MEDS: 0.9 % Sodium Chloride Flush 3 ML SYRINGE IVFLUSH ×2 (08:35→23:37)
[2021-08-12] MEDS: ondansetron HCL 4 MG/2 ML VIAL IVPUSH ×2 (08:35→23:36)
--- NOTE | 2021-08-12 08:58 | P.PNIM_ITS ---
Subjective Subjective Date of Service: 08/12/21 Interval History: cc: n/v interval history: still unable to tolerate po Cardiovascular Cardiovascular: Reports no additional cardiovascular complaints Respiratory Respiratory: Reports no additional respiratory complaints Physical Exam Vital Signs: Vital Signs: Last Vital Signs Temp 98 F 08/12/21 08:00 Pulse 61 08/12/21 08:00 Resp 16 08/12/21 08:00 BP 155/101 H 08/12/21 08:00 Pulse Ox 99 08/12/21 08:00 Body Mass Index 18.8 General: AO X 3, uncomfortable Resp:? CTA bilateral, no accessory muscles used CVS: S1,S2,RRR GI: soft, non tender, non distended Neuro:? motor grossly intact, alert Psych: appropriate affect, appropriate insight? Objective Data Active Medications Lactated Ringer's (Lr) 1,000 mls @ 100 mls/hr IVCONT .Q10H [facility] Last Admin: 08/12/21 02:50 Dose: 100 mls/hr Documented by: BRE Morphine Sulfate (Morphine Sulfate 2 Mg/Ml Cartridge) 2 mg IVPUSH Q4H PRN; Protocol PRN Reason: pain Last Admin: 08/11/21 08:59 Dose: 2 mg Documented by: MARGARITO Omeprazole (Omeprazole 40 Mg Capsule.Dr) 40 mg PO DAILY@0630 [facility] Last Admin: 08/12/21 05:37 Dose: Not Given Documented by: BRE Non-Admin Reason: Patient Refused Ondansetron HCl (Ondansetron Hcl 4 Mg/2 Ml Vial) 4 mg IVPUSH Q8H PRN PRN Reason: nausea Last Admin: 08/12/21 08:35 Dose: 4 mg Documented by: MARGARITO Sodium Chloride (0.9 % Sodium Chloride Flush 3 Ml Syringe) 3 ml IVFLUSH QSHIFT [facility] Last Admin: 08/12/21 08:35 Dose: 3 ml Documented by: MARGARITO Labs CBC & Chem 7: 08/11/21 05:54 08/11/21 05:54 Assessment and Plan (1) Intractable vomiting: Status: Acute (2) Gastritis: Status: Acute Assessment and Plan: 21M presented with intractable nausea vomiting. Intractable nausea vomiting, dehydration Gastritis versus cannaboid induced emesis. only slightly relieved by hot shower still not taking po continue iv hydration, antiemetics CT abd unremarkable Quality Stroke Does the patient have a stroke diagnosis?: No VTE Prior VTE?: No VTE Risk Level:: Medical - low VTE Device Contraindication: Treatment Not Indicated VTE Drug Contraindication: Treatment Not Indicated
[2021-08-12] MEDS: Morphine Sulfate 2 MG/ML CARTRIDGE IVPUSH (09:06)
[2021-08-12 11:57] VITALS: BP 136/80; PULSE 66; RESP 18; TEMP 36.8; O2SAT 99
[2021-08-12 15:49] VITALS: BP 118/71; PULSE 100; RESP 16; TEMP 37.2; O2SAT 99
[2021-08-12 19:33] VITALS: BP 128/79; PULSE 70; RESP 16; TEMP 37.2; O2SAT 98
[2021-08-12 23:26] VITALS: BP 162/113; PULSE 83; RESP 17; TEMP 36.8; O2SAT 100
[2021-08-13] VITALS (7 sets, daily range): BP systolic 127–152; BP diastolic 71–103; PULSE 71–110; RESP 17–20; TEMP 36.4–37.1; O2SAT 96–100
[2021-08-13] MEDS: Metoclopramide HCl 10 MG/2 ML VIAL 5 MG IVPUSH ×2 (04:02→11:08)
[2021-08-13] MEDS: Lactated Ringers 1,000 ML 100 ML IVCONT ×2 (04:05→13:29)
--- NOTE | 2021-08-13 09:15 | P.PNIM_ITS ---
Subjective Subjective Date of Service: 08/13/21 Interval History: cc: n/v interval history: not tolerating po Cardiovascular Cardiovascular: Reports no additional cardiovascular complaints Respiratory Respiratory: Reports no additional respiratory complaints Physical Exam Vital Signs: Vital Signs: Last Vital Signs Temp 97.9 F 08/13/21 07:46 Pulse 80 08/13/21 07:46 Resp 18 08/13/21 07:46 BP 134/82 08/13/21 07:46 Pulse Ox 98 08/13/21 07:46 Body Mass Index 18.8 General: AO X 3, uncomfortable Resp:? CTA bilateral, no accessory muscles used CVS: S1,S2,RRR GI: soft, non tender, non distended Neuro:? motor grossly intact, alert Psych: appropriate affect, appropriate insight? Objective Data Active Medications Lactated Ringer's (Lr) 1,000 mls @ 100 mls/hr IVCONT .Q10H [facility] Last Admin: 08/13/21 04:05 Dose: 100 mls/hr Documented by: MARCO Metoclopramide HCl (Metoclopramide Hcl 10 Mg/2 Ml Vial) 5 mg IVPUSH Q6H PRN PRN Reason: nausea Last Admin: 08/13/21 04:02 Dose: 5 mg Documented by: MARCO Morphine Sulfate (Morphine Sulfate 2 Mg/Ml Cartridge) 2 mg IVPUSH Q4H PRN; Protocol PRN Reason: pain Last Admin: 08/12/21 09:06 Dose: 2 mg Documented by: MARGARITO Omeprazole (Omeprazole 40 Mg Capsule.Dr) 40 mg PO DAILY@0630 [facility] Last Admin: 08/13/21 06:13 Dose: Not Given Documented by: MARCO Non-Admin Reason: Patient Refused Ondansetron HCl (Ondansetron Hcl 4 Mg/2 Ml Vial) 4 mg IVPUSH Q8H PRN PRN Reason: nausea Last Admin: 08/12/21 23:36 Dose: 4 mg Documented by: MARCO Sodium Chloride (0.9 % Sodium Chloride Flush 3 Ml Syringe) 3 ml IVFLUSH QSHIFT [facility] Last Admin: 08/13/21 08:04 Dose: Not Given Documented by: ALTON Non-Admin Reason: IV Running Labs CBC & Chem 7: 08/11/21 05:54 08/11/21 05:54 Assessment and Plan (1) Intractable vomiting: Status: Acute (2) Gastritis: Status: Acute Assessment and Plan: 21M presented with intractable nausea vomiting. Intractable nausea vomiting, dehydration Gastritis versus cannaboid induced emesis. only slightly relieved by hot shower still not taking po continue iv hydration, reglan, zofran CT abd unremarkable Quality Stroke Does the patient have a stroke diagnosis?: No VTE Prior VTE?: No VTE Risk Level:: Medical - low VTE Device Contraindication: Treatment Not Indicated VTE Drug Contraindication: Treatment Not Indicated
--- NOTE | 2021-08-13 12:59 | MHC.AU.HAT ---
nurse manager medicare note electronic medical record reviewed along with case discussed on multiple disicplianry rounds.m patient admitted with diagnois of intactable emesis , continues on iv fluids antiemetics iv metpclopramide, . manager medicare to don to follow for discharge needs
[2021-08-13] MEDS: ondansetron HCL 4 MG/2 ML VIAL IVPUSH ×2 (13:28→22:23)
--- NOTE | 2021-08-13 14:26 | MHC.CLN ---
F/U PATIENT REPORTS THAT HE IS NOT EATING OR DRINKING. LATER STATED THAT HE WILL EAT FRUIT, THAT IS ALL. CONTINUES TO NOT TOLERATE PO. DISCONTINUE ENSURE BID SINCE DOES NOT TAKE. RECEIVING LACTATED RINGERS. CONTINUE TO FOLLOW FOR WEIGHT, INTAKE, DIET TOLERANCE.
[2021-08-14 00:08] VITALS: BP 145/78; PULSE 83; RESP 18; TEMP 37.4; O2SAT 100
[2021-08-14] MEDS: Lactated Ringers 1,000 ML 100 ML IVCONT ×2 (00:37→11:16)
[2021-08-14] MEDS: Metoclopramide HCl 10 MG/2 ML VIAL 5 MG IVPUSH (00:53)
[2021-08-14] MEDS: Prochlorperazine Edisylate 10 MG/2 ML VIAL 5 MG IVPUSH ×2 (02:33→09:26)
[2021-08-14 03:33] VITALS: BP 113/79; PULSE 85; RESP 17; TEMP 37.1; O2SAT 98
[2021-08-14 07:37] VITALS: BP 163/106; PULSE 69; RESP 18; TEMP 36.7; O2SAT 99
--- NOTE | 2021-08-14 10:04 | P.PNIM_ITS ---
Subjective Subjective Date of Service: 08/14/21 Interval History: cc: n/v interval history: not tolerating po Cardiovascular Cardiovascular: Reports no additional cardiovascular complaints Respiratory Respiratory: Reports no additional respiratory complaints Physical Exam Vital Signs: Vital Signs: Last Vital Signs Temp 98.1 F 08/14/21 07:37 Pulse 69 08/14/21 07:37 Resp 18 08/14/21 07:37 BP 163/106 H 08/14/21 07:37 Pulse Ox 99 08/14/21 07:37 Body Mass Index 18.8 General: AO X 3, uncomfortable Resp:? CTA bilateral, no accessory muscles used CVS: S1,S2,RRR GI: soft, non tender, non distended Neuro:? motor grossly intact, alert Psych: appropriate affect, appropriate insight? Objective Data Active Medications Lactated Ringer's (Lr) 1,000 mls @ 100 mls/hr IVCONT .Q10H [facility] Last Admin: 08/14/21 00:37 Dose: 100 mls/hr Documented by: JEANNE Morphine Sulfate (Morphine Sulfate 2 Mg/Ml Cartridge) 2 mg IVPUSH Q4H PRN; Pro tocol PRN Reason: pain Last Admin: 08/12/21 09:06 Dose: 2 mg Documented by: MARGARITO Omeprazole (Omeprazole 40 Mg Capsule.Dr) 40 mg PO DAILY@0630 [facility] Last Admin: 08/14/21 06:38 Dose: Not Given Documented by: JEANNE Non-Admin Reason: Nausea Ondansetron HCl (Ondansetron Hcl 4 Mg/2 Ml Vial) 4 mg IVPUSH Q8H PRN PRN Reason: nausea Last Admin: 08/13/21 22:23 Dose: 4 mg Documented by: JEANNE Prochlorperazine Edisylate (Prochlorperazine Edisylate 10 Mg/2 Ml Vial) 5 mg IVPUSH Q6H PRN PRN Reason: nausea Last Admin: 08/14/21 09:26 Dose: 5 mg Documented by: ALTON Sodium Chloride (0.9 % Sodium Chloride Flush 3 Ml Syringe) 3 ml IVFLUSH QSHIFT [facility] Last Admin: 08/14/21 09:07 Dose: Not Given Documented by: ALTON Non-Admin Reason: IV Running Labs CBC & Chem 7: 08/11/21 05:54 08/11/21 05:54 Assessment and Plan (1) Intractable vomiting: Status: Acute (2) Gastritis: Status: Acute Assessment and Plan: 21M presented with intractable nausea vomiting. Intractable nausea vomiting, dehydration Gastritis versus cannaboid induced emesis. only slightly relieved by hot shower still not taking po continue iv hydration, zofran will change reglan to compazine CT abd unremarkable Quality Stroke Does the patient have a stroke diagnosis?: No VTE Prior VTE?: No VTE Risk Level:: Medical - low VTE Device Contraindication: Treatment Not Indicated VTE Drug Contraindication: Treatment Not Indicated
[2021-08-14 11:15] VITALS: BP 121/66; PULSE 75; RESP 18; TEMP 36; O2SAT 98
[2021-08-14 16:00] VITALS: BP 150/72; PULSE 72; RESP 18; TEMP 36.3; O2SAT 98
[2021-08-14 19:17] VITALS: BP 137/76; PULSE 119; RESP 18; TEMP 36.8; O2SAT 99
[2021-08-14] MEDS: ondansetron HCL 4 MG/2 ML VIAL IVPUSH (23:07)
[2021-08-15] VITALS (7 sets, daily range): BP systolic 111–178; BP diastolic 68–95; PULSE 70–111; RESP 18; TEMP 35.8–37; O2SAT 98–100
[2021-08-15] MEDS: Prochlorperazine Edisylate 10 MG/2 ML VIAL 5 MG IVPUSH ×2 (00:35→06:47)
[2021-08-15] MEDS: Lactated Ringers 1,000 ML 100 ML IVCONT ×3 (00:40→20:31)
[2021-08-15] MEDS: ondansetron HCL 4 MG/2 ML VIAL IVPUSH (10:50)
--- NOTE | 2021-08-15 11:26 | MHC.CLN ---
F/U CONTINUES WITH POOR PO. TAKES FRUIT AND WATER. ENSURE SUPPLEMENT DISCONTINUED SINCE NOT TAKING. DISCUSSED POOR INTAKE AT MD ROUNDS. RECEIVING IV FLUIDS, ANTIEMETICS, AND MORPHINE. CONTINUE TO FOLLOW INTAKE.
[2021-08-15] MEDS: Ketorolac Tromethamine 15 MG/ML VIAL IVPUSH (13:21)
[2021-08-15] MEDS: Famotidine/PF 20 MG/2 ML VIAL IVPUSH ×2 (13:21→20:32)
--- NOTE | 2021-08-15 13:47 | HO.PM.IMPN ---
Subjective Subjective Date of Service: 08/15/21 Interval History: Being followed for intractable nausea and vomiting, complaining of persistent nausea had a small yellow colored vomitus this morning, able to keep small amount of water down, complaining of abdominal pain no fevers no chills no diarrhea as no other acute issues overnight. Review of Systems General no headache, no dizziness no fever chills. CVS no chest pain, no palpitation. Respiratory no cough, no sob. Gastrointestinal persistent nausea vomiting and abdominal pain Review of Systems: Yes all other systems are reviewed and are negative Physical Exam Vital Signs: Vital Signs: Last Vital Signs Temp 98.2 F 08/15/21 12:00 Pulse 72 08/15/21 12:00 Resp 18 08/15/21 12:00 BP 157/95 H 08/15/21 12:00 Pulse Ox 98 08/15/21 12:00 Body Mass Index 18.8 General: Alert or iented x3 no acute distress Neck is supple, no JVD Res p:? CTA bilateral, no accessory musc les used CVS: S1,S 2,RRR GI: soft, ep igastric tendernes s, non distended E xtremities no viktor a Skin no rash Carson ro:? motor grossly intact, alert Psy ch: appropriate af fect, appropriate insight? ? Objective Data Active Medications Famotidine (Famotidine/Pf 20 Mg/2 Ml Vial) 20 mg IVPUSH BID [facility] Last Admin: 08/15/21 13:21 Dose: 20 mg Documented by: ALTON Lactated Ringer's (Lr) 1,000 mls @ 100 mls/hr IVCONT .Q10H [facility] Last Admin: 08/15/21 09:36 Dose: 100 mls/hr Documented by: ALTON Ketorolac Tromethamine (Ketorolac Tromethamine 15 Mg/Ml Vial) 15 mg IVPUSH Q6H PRN PRN Reason: Pain, Severe (Pain Scale 7-10) Last Admin: 08/15/21 13:21 Dose: 15 mg Documented by: ALTON Ondansetron HCl (Ondansetron Hcl 4 Mg/2 Ml Vial) 4 mg IVPUSH Q8H PRN PRN Reason: nausea Last Admin: 08/15/21 10:50 Dose: 4 mg Documented by: HO.YOUB Prochlorperazine Edisylate (Prochlorperazine Edisylate 10 Mg/2 Ml Vial) 5 mg IVPUSH Q6H PRN PRN Reason: nausea Last Admin: 08/15/21 06:47 Dose: 5 mg Documented by: FAY Sodium Chloride (0.9 % Sodium Chloride Flush 3 Ml Syringe) 3 ml IVFLUSH QSHIFT [facility] Last Admin: 08/15/21 09:12 Dose: Not Given Documented by: ALTON Non-Admin Reason: IV Running Labs CBC & Chem 7: 08/11/21 05:54 08/11/21 05:54 Assessment and Plan (1) Intractable vomiting: Status: Acute (2) Gastritis: Status: Acute Assessment and Plan: 21M presented with intractable nausea vomiting. Intractable nausea, vomiting, dehydration Gastritis versus cannaboid induced emesis. Will discontinue IV morphine, place patient on IV Pepcid and IV Toradol Recommend soft diet Continue IV fluids and antiemetics CT abd unremarkable Normal CBC and electrolytes 08/11 Electrolytes and TSH at a.m. Quality Stroke Does the patient have a stroke diagnosis?: No VTE Prior VTE?: No VTE Risk Level:: Medical - low VTE Device Contraindication: Treatment Not Indicated VTE Drug Contraindication: Treatment Not Indicated
--- NOTE | 2021-08-15 16:29 | MHC.CM.PN ---
Male 21 No dc today. NV continues Antiemetic and pain medication changes made. Resume OP PT Family transport.
[2021-08-16 04:00] VITALS: BP 140/88; PULSE 86; RESP 18; TEMP 36.4; O2SAT 98
[2021-08-16 06:27] LABS: Anion Gap 16 (12-20); Blood Urea Nitrogen 7 mg/dL (9-16); Calcium 9.8 mg/dL (8.4-10.2); Carbon Dioxide 27 mmol/L (22-29); Chloride 102 mmol/L (96-108); Creatinine Clr Calc Pharmacy 110.1; Estimated Glomerular Filt Rate > 60; Glucose Random 98 mg/dL (60-115); Potassium 4.5 mmol/L (3.3-5.1); Sodium 140 mmol/L (135-145)
[2021-08-16 06:48] LABS: Thyroid Stimulating Hormone 0.75 uIU/mL (0.32-4.0)
[2021-08-16] MEDS: ondansetron HCL 4 MG/2 ML VIAL IVPUSH (06:49)
[2021-08-16 07:44] VITALS: BP 161/90; PULSE 83; RESP 18; TEMP 37.4; O2SAT 99
[2021-08-16] MEDS: Famotidine/PF 20 MG/2 ML VIAL IVPUSH ×2 (09:26→21:11)
[2021-08-16] MEDS: Prochlorperazine Edisylate 10 MG/2 ML VIAL 5 MG IVPUSH (09:26)
[2021-08-16] MEDS: Lactated Ringers 1,000 ML 100 ML IVCONT (09:33)
[2021-08-16] MEDS: Ketorolac Tromethamine 15 MG/ML VIAL IVPUSH (09:45)
[2021-08-16 11:24] VITALS: BP 117/68; PULSE 67; RESP 17; TEMP 37.1; O2SAT 98
--- NOTE | 2021-08-16 15:40 | HO.PM.IMPN ---
Subjective Subjective Date of Service: 08/16/21 Interval History: Being followed for intractable nausea and vomiting, patient has been lying in bed for last 8 days with same complaints, clinically appears stable, has not been seen to be vomiting all day today, had 1 episode of clear vomitus early this a.m., also complained of abdominal pain and decreased by mouth intake. Review of Systems General no headache, no dizziness no fever chills.? CVS no chest pain, no palpitation.? Respiratory no cough, no sob.? Gastrointestinal persistent nausea vomiting and abdominal pain Review of Systems: Yes all other systems are reviewed and are negative Physical Exam Vital Signs: Vital Signs: Last Vital Signs Temp 98.8 F 08/16/21 11:24 Pulse 67 08/16/21 11:24 Resp 17 08/16/21 11:24 BP 117/68 08/16/21 11:24 Pulse Ox 98 08/16/21 11:24 Body Mass Index 18.8 General:? Alert oriented x3 no acute?distress Neck supple, no JVD Resp:? CTA bilateral,?no accessory muscles used CVS: S1,S2,RRR GI: soft, tenderness with superficial palpation, no palpable mass, non distended, bowel sounds audible Extremities no edema Skin no rash Neuro:? motor grossly?intact, alert Psych: appropriate affect, appropriateinsight? Objective Data Active Medications Famotidine (Famotidine/Pf 20 Mg/2 Ml Vial) 20 mg IVPUSH BID [facility] Last Admin: 08/16/21 09:26 Dose: 20 mg Documented by: JAVIER Lactated Ringer's (Lr) 1,000 mls @ 100 mls/hr IVCONT .Q10H [facility] Last Admin: 08/16/21 09:33 Dose: 100 mls/hr Documented by: JAVIER Ketorolac Tromethamine (Ketorolac Tromethamine 15 Mg/Ml Vial) 15 mg IVPUSH Q6H PRN PRN Reason: Pain, Severe (Pain Scale 7-10) Last Admin: 08/16/21 09:45 Dose: 15 mg Documented by: JAVIER Ondansetron HCl (Ondansetron Hcl 4 Mg/2 Ml Vial) 4 mg IVPUSH Q8H PRN PRN Reason: nausea Last Admin: 08/16/21 06:49 Dose: 4 mg Documented by: REYNALDO Prochlorperazine Edisylate (Prochlorperazine Edisylate 10 Mg/2 Ml Vial) 5 mg IVPUSH Q6H PRN PRN Reason: nausea Last Admin: 08/16/21 09:26 Dose: 5 mg Documented by: JAVIER Sodium Chloride (0.9 % Sodium Chloride Flush 3 Ml Syringe) 3 ml IVFLUSH QSHIFT [facility] Last Admin: 08/16/21 09:21 Dose: Not Given Documented by: NEERAJ Non-Admin Reason: IV Running Labs CBC & Chem 7: 08/11/21 05:54 08/16/21 05:50 Labs: Laboratory Results - last 24 hr 08/16/21 05:50 Anion Gap 16 Estim Creat Clear Calc 110.1 Estimated GFR > 60 Random Glucose 98 Calcium 9.8 D TSH 0.75 Assessment and Plan (1) Intractable vomiting: Status: Acute (2) Gastritis: Status: Acute Assessment and Plan: 21M presented with intractable nausea vomiting. Intractable nausea, vomiting, dehydration Persistent symptoms of abdominal pain, nausea and vomiting Only noted to have 1 episode of vomiting today small amount Symptoms likely due to Gastritis versus cannaboid induced emesis. on IV Pepcid and IV Toradol Recommend soft diet Will minimize antiemetics, continue Compazine and DC IV zofran CT abd unremarkable Normal CBC and electrolytes , normal TSH DC IV fluids and add Ensure Clear Quality Stroke Does the patient have a stroke diagnosis?: No VTE Prior VTE?: No VTE Risk Level:: Medical - low VTE Device Contraindication: Treatment Not Indicated VTE Drug Contraindication: Treatment Not Indicated
[2021-08-16 15:53] VITALS: BP 155/92; PULSE 62; RESP 18; TEMP 36.4; O2SAT 100
[2021-08-16 19:54] VITALS: BP 121/62; PULSE 117; RESP 18; TEMP 36.9; O2SAT 98
[2021-08-16] MEDS: 0.9 % Sodium Chloride Flush 3 ML SYRINGE IVFLUSH (21:12)
[2021-08-16 23:46] VITALS: BP 122/85; PULSE 105; RESP 18; TEMP 37.1; O2SAT 96
[2021-08-17 03:18] VITALS: BP 137/74; PULSE 95; RESP 17; TEMP 37.1; O2SAT 97
[2021-08-17 07:40] VITALS: BP 106/58; PULSE 72; RESP 18; TEMP 36.5; O2SAT 98
[2021-08-17] MEDS: 0.9 % Sodium Chloride Flush 3 ML SYRINGE IVFLUSH (09:30)
[2021-08-17] MEDS: Famotidine/PF 20 MG/2 ML VIAL IVPUSH (09:30)
[2021-08-17] MEDS: Prochlorperazine Edisylate 10 MG/2 ML VIAL 5 MG IVPUSH (09:33)
--- NOTE | 2021-08-17 10:56 | P.DS_ITS ---
DS: Providers Provider Date of Service: 08/17/21 Date of admission: 08/08/21 15:06 Primary care physician: Angelic Mcqueen MD DS: Diagnosis Discharge Diagnosis (1) Intractable vomiting: Status: Acute (2) Gastritis: Status: Acute DS: Summary Hospital Course Hospital Course: Chief Complaint: vomitting 21M presented with 2 days nausea and vomitting.? Patient was in the ED day prior to presentation.? At that point was sent home with some Reglan.? However, still not tolerating p.o., still vomiting food contents, some abdominal pain with retching but not primary symptom, therefore he came back in. in ED labs consistent with dehydration, calcium 10.4, albumin 5.3. Hospital course 21M presented with intractable nausea vomiting, due to recurrent presentation to emergency room patient was admitted to [facility] was treated with IV fluids antiemetics and analgesics, gradually diet was advanced, all symptoms of nausea vomiting have resolved patient is tolerating food therefore he is being discharged home on Prilosec and as needed Reglan he has been recommended to avoid marijuana since symptoms likely due to gastritis versus cannabinoid induced emesis, his CBC electrolytes and TSH are within normal range. Time Spent with Patient Time attestation: Total time spent providing and/or coordinating discharge services: Discharge coordination time: Greater than 30 minutes Quality: Stroke Does the patient have a stroke diagnosis?: No Physical Exam Vital Signs: Vital Signs: Last Vital Signs Temp 97.7 F 08/17/21 07:40 Pulse 72 08/17/21 07:40 Resp 18 08/17/21 07:40 BP 106/58 L 08/17/21 07:40 Pulse Ox 98 08/17/21 07:40 Body Mass Index 18.8 General awake alert x3,no acute distress. Neck supple no JVD. CVS regular rate rhythm, Respiratory lungs clear to auscultation, no respiratory distress, no wheeze, no rhonchi. Gastrointestinal abdomen soft, nontender, bowel sounds audible, no guarding , no rigidity. Extremities no edema. Neuro nonfocal Skin no rash Psych appropriate affect Discharge Plan Discharge Patient Disposition: Home, Self-Care Discharge Diagnosis: Intractable nausea vomiting Referrals: Angelic Mills MD [Primary Care Provider] - 1 Week () Discharge Medications: Continued metoclopramide HCl [Reglan] 5 mg tablet 5 mg PO BID Qty: 14 RF: 0 omeprazole 20 mg capsule,delayed release(DR/EC) 20 mg PO DAILY 90 Days Qty: 90 RF: 0 Changed metoclopramide HCl [Reglan] 5 mg tablet 5 mg PO NEEDED Qty: 14 RF: 0 Discharge Orders: Discharge Order (Routine); Ordered 08/17/21 Ordered By: Rosa Willingham Diet: advance to usual diet Activity on Discharge: As tolerated Stand Alone Forms: Patient Portal Discharge page Care Plan Goals: Continue eating small meals, take Reglan as needed for nausea or vomiting, take Prilosec for acidity, avoid marijuana Health Concerns: Take medications as prescribed Plan of Treatment: Follow-up with primary care physician in 1 week Assessment: As above
--- NOTE | 2021-08-17 11:11 | MHC.CM.PN ---
pt dcd home no skilled services ordered by
[2021-08-17 11:36] VITALS: BP 150/92; PULSE 102; RESP 17; TEMP 36.7; O2SAT 98
== END 2021-08-17 14:37 | disposition home or self-care (01) ==
LOC: HO.ED 14:14 → HO.EDOVER 15:24 → HO.S3 16:09
PROVIDERS: Admitting Provider Internal Medicine; Emergency Provider Emergency Medicine; PCP Internal Medicine; Visit Provider Hospitalist
DX: R11.10 Vomiting, unspecified (principal); K29.00 Acute gastritis without bleeding; R10.13 Epigastric pain; F12.10 Cannabis abuse, uncomplicated; Z20.822 Contact with and (suspected) exposure to COVID-19; Z79.899 Other long term (current) drug therapy
CPT/HCPCS: 36415; 74176; 80048; 80076; 83690; 83735; 84443; 85025; 85027; 87635; 96374; 96375; 99218; 99225; 99285; J1885; J2060; J2270; J2405; J2765

== ENCOUNTER 2021-11-29 04:34 | Emergency (ER) | payer OTHER, SELFPAY ==
[2021-11-29 04:44] VITALS: BP 142/95; PULSE 98; RESP 20; TEMP 37.1; O2SAT 100; BMI 28.1
[2021-11-29] MEDS: 0.9 % Sodium Chloride 1,000 ML 999 ML IV (04:58)
[2021-11-29] MEDS: diphenhydrAMINE HCL 50 MG/ML VIAL 25 MG IVPUSH (04:58)
[2021-11-29] MEDS: Metoclopramide HCl 10 MG/2 ML VIAL IVPUSH (04:58)
[2021-11-29 04:59] LABS: MANUAL DIFF FLAG NO
[2021-11-29 05:00] LABS: Basophils Percent Auto 0.5 % (0-2); Eosinophils Absolute Auto 0.1 X10*3/uL (0.0-0.4); Eosinophils Percent Auto 0.7 % (0-4); Hematocrit 45.4 % (42.0-52.0); Hemoglobin 16.1 g/dl (14.0-18.0); Imm Gran Abs Auto 0.02 X10*3/uL (0.00-0.03); Imm Gran Pct Auto 0.2 % (0.0-0.4); Lymphocytes Absolute Auto 2.9 X10*3/uL (1.2-4.9); Lymphocytes Percent Auto 35.7 % (20-40); Mean Corpuscular HGB Conc 35.5 g/dl (31.0-36.0); Mean Corpuscular Hemoglobin 31.8 pg (27.0-33.0); Mean Corpuscular Volume 89.7 fL (80.0-98.0); Mean Platelet Volume 10.5 fL (9.4-12.4); Monocytes Absolute Auto 0.7 X10*3/uL (0.1-1.2); Monocytes Percent Auto 8.5 % (2-11); Neutrophils Absolute Auto 4.4 x10*3/uL (2.0-8.3); Neutrophils Percent Auto 54.4 % (45-73); Platelet Count 243 X10*3/uL (160-400); Red Blood Count 5.06 X10*6/uL (4.60-5.80); Red Cell Distribution Width 11.7 % (11.0-16.0)
[2021-11-29 05:22] LABS: Alanine Aminotransferase 11 U/L (0-40); Albumin Level 4.6 g/dL (3.5-5.0); Alkaline Phosphatase 76 U/L (39-117); Anion Gap 16 (12-20); Aspartate Amino Transferase 21 U/L (5-37); Blood Urea Nitrogen 11 mg/dL (9-16); Calcium 9.9 mg/dL (8.4-10.2); Carbon Dioxide 24 mmol/L (22-29); Chloride 103 mmol/L (96-108); Creatinine Clr Calc Pharmacy 144.5; Estimated Glomerular Filt Rate > 60; Glucose Random 115 mg/dL (60-115); Potassium 3.6 mmol/L (3.3-5.1); Sodium 139 mmol/L (135-145); Total Protein 7.3 g/dL (6.5-8.0)
[2021-11-29] MEDS: Haloperidol Lactate 5 MG/ML VIAL 2.5 MG IM (05:26)
--- NOTE | 2021-11-29 06:01 | ED.NAVMDI ---
HPI - Nausea/Vomiting/Diarrhea General Chief complaint: Nausea/Vomiting/Diarrhea Stated complaint: Vomiting Time Seen by Provider: 11/29/21 04:45 Source: patient Mode of arrival: ambulatory History of Present Illness HPI Narrative: 21-year-old male presents with nausea and vomiting for 1 day with associated epigastric pain in self reports smoking marijuana and prior history of cyclical vomiting. Other than patient experiencing chills wall vomiting he otherwise denies any fever, chills, diarrhea, shortness of breath/chest pain/palpitations. Related Data Previous Rx's Medication Instructions Recorded metoclopramide HCl 5 mg tablet 5 mg PO Q6H PRN #20 tab 08/17/21 (Reglan) omeprazole 20 mg capsule,delayed 20 mg PO DAILY #30 cap 08/17/21 release Allergies Allergy/AdvReac Type Severity Reaction Status Date / Time No Known Allergies Allergy Verified 11/29/21 04:44 [No Known Allergies*] Review of Systems Review of Systems: Pertinent positives and negatives as stated in HPI 10 point review of systems is otherwise negative. PMFSH Past Medical History Source: nursing notes reviewed Medical History Boxer's fracture with routine healing Gastritis Tibial fracture Surgical History History of open reduction and internal fixation (ORIF) procedure Hx of appendicitis Family History Family History Mother Hypertension Anxiety Father No problems noted. Social History Social History Housing: Apartment Alcohol intake: never Patient Tobacco Use Status: Never used Tobacco e-Cigarette/Vaping Use: Never Used Second Hand Smoke Exposure: No Substance Use Type: Marijuana Advance Directives: No service: No Current occupational status: unemployed Physical Exam Vital Signs: Vital Signs: Last Vital Signs Temp 98.7 F 11/29/21 04:44 Pulse 98 11/29/21 04:44 Resp 20 11/29/21 04:44 BP 142/95 H 11/29/21 04:44 Pulse Ox 100 11/29/21 04:44 BMI result Body Mass Index 28.1 VITAL SIGNS: Reviewed. GENERAL: Well developed, well nourished, in no acute distress. HEAD: Normocephalic/atraumatic EYES: PERRLA, EOMI OROPHARYNX: no oral lesions noted, posterior pharynx clear LUNGS: Normal breath sounds. No adventitious sounds or accessory muscle use. SpO2<100> CARDIOVASCULAR: Regular rate and rhythm without noted murmurs ABDOMEN: Soft, for mild tenderness on palpation without rebound, non-distended with bowel sounds. MUSCULOSKELETAL: No tenderness, deformities, or effusions noted on gross inspection. EXTREMITIES: No cyanosis, clubbing or edema. SKIN: Inspection of the skin reveals no rashes NEUROLOGIC: Alert and oriented x 4. Strength and sensation to light touch were grossly intact x 4. Course Course Course Narrative: 21-year-old male with history and clinical presentation consistent with cyclical vomiting and on review of all investigations there are no acute findings to suggest anemia, infectious etiologies. Patient provided with IV fluids as well as combination antiemetics. On re-evaluation patient is noted to continue vomiting. I have signed out to Dr. Jarvis, as well as ordering 1 mg Ativan and if patient continues to be nauseous and vomiting will be admitted. MDM - Nausea/Vomiting/Diarrhea Lab Data Result diagrams: 11/29/21 04:55 11/29/21 04:55 Labs: Lab Results 11/29/21 11/29/21 Range/Units 04:55 04:55 WBC 8.0 (4.8-10.8) X10*3/uL RBC 5.06 (4.60-5.80) X10*6/uL Hgb 16.1 (14.0-18.0) g/dl Hct 45.4 (42.0-52.0) % MCV 89.7 (80.0-98.0) fL MCH 31.8 (27.0-33.0) pg MCHC 35.5 (31.0-36.0) g/dl RDW 11.7 (11.0-16.0) % Plt Count 243 (160-400) X10*3/uL MPV 10.5 (9.4-12.4) fL Immature Gran % (Auto) 0.2 (0.0-0.4) % Neut % (Auto) 54.4 (45-73) % Lymph % (Auto) 35.7 (20-40) % [place] % (Auto) 8.5 (2-11) % Eos % (Auto) 0.7 (0-4) % Baso % (Auto) 0.5 (0-2) % Lymph # (Auto) 2.9 (1.2-4.9) X10*3/uL [place] # (Auto) 0.7 (0.1-1.2) X10*3/uL Eos # (Auto) 0.1 (0.0-0.4) X10*3/uL Baso # (Auto) 0.0 (0.0-0.2) X10*3/uL Abs Immat Gran (auto) 0.02 (0.00-0.03) X10*3/uL Absolute Neuts (auto) 4.4 (2.0-8.3) x10*3/uL Absolute Nucleated RBC 0.000 (0.0-0.012) X10*3/uL Nucleated RBC % (auto) 0.0 (0.0-0.2) /100WBC Sodium 139 (135-145) mmol/L Potassium 3.6 (3.3-5.1) mmol/L Chloride 103 (96-108) mmol/L Carbon Dioxide 24 (22-29) mmol/L Anion Gap 16 (12-20) BUN 11 (9-16) mg/dL Creatinine 0.82 (0.5-1.4) mg/dL Estim Creat Clear Calc 144.5 Estimated GFR > 60 Random Glucose 115 (60-115) mg/dL Calcium 9.9 (8.4-10.2) mg/dL Total Bilirubin 1.0 (0.0-1.0) mg/dL AST 21 D (5-37) U/L ALT 11 (0-40) U/L Alkaline Phosphatase 76 (39-117) U/L Total Protein 7.3 (6.5-8.0) g/dL Albumin 4.6 (3.5-5.0) g/dL Discharge Plan Discharge Clinical Impression: Dehydration, Cyclical vomiting Patient Disposition: Still a Patient Prescriptions: No Action omeprazole 20 mg capsule,delayed release(DR/EC) 20 mg PO DAILY Qty: 30 0RF metoclopramide HCl [Reglan] 5 mg tablet 5 mg PO Q6H PRN (Reason: nausea and vomiting) Qty: 20 0RF
[2021-11-29] MEDS: Prochlorperazine Edisylate 10 MG/2 ML VIAL IVPUSH (06:11)
[2021-11-29] MEDS: LORazepam 2 MG/ML VIAL 1 MG IVPUSH (07:16)
[2021-11-29] MEDS: Magnesium Hydrox/Alum Hydrox 30 ML ORAL.SUSP PO (07:16)
[2021-11-29] MEDS: Lidocaine HCl Viscous 2 % 15 ML SOLUTION 10 ML MUCOUS MEM (07:16)
[2021-11-29] MEDS: Famotidine/PF 20 MG/2 ML VIAL IVPUSH (07:17)
[2021-11-29 07:19] VITALS: BP 140/96; PULSE 59; RESP 16; TEMP 36.8; O2SAT 98
--- NOTE | 2021-11-29 08:41 | PC.NURSE ---
Patient had episode of dry heaving, has not vomited in hours. Patient given christina lev.
== END 2021-11-29 11:09 | disposition home or self-care (01) ==
PROVIDERS: Student in an Organized Health Care Education/Training Program; Emergency Provider Emergency Medicine
DX: E86.0 Dehydration (principal); R11.15 Cyclical vomiting syndrome unrelated to migraine; F12.90 Cannabis use, unspecified, uncomplicated; Z79.899 Other long term (current) drug therapy
CPT/HCPCS: 36415; 80053; 85025; 96361; 96372; 96374; 96375; 99284; J1200; J2060; J2765

== ENCOUNTER 2021-11-30 22:50 | Emergency (ER) | payer OTHER, SELFPAY ==
[2021-11-30 22:53] VITALS: BP 146/91; PULSE 89; RESP 16; TEMP 37.1; O2SAT 100; BMI 21.6
--- NOTE | 2021-11-30 23:13 | PC.NURSE ---
THIS RN IN TRIAGE CALLED TO WAITING ROOM D/T PT SCREAMING I NEED A FUCKING NURSE I CANT FEEL MY FUCKING HANDS RN IMMEDIATELY AT PTS SIDE, PT APPEARS TO BE HYPERVENTILATING WHILE YELLING I NEED SOME FUCKING MEDS, YOU AREN'T FUCKING HELPING ME RN ATTEMPTING TO REASSURE, AND OPERATIONAL METEOROLOGIST PT ON SLOWER PURSE LIPPED BREATHING WHEN PT TOOK BOTH FISTS, SLAMMED THEM ON COUCH AND POSTURED TOWARD THIS RN SCREAMING YOU AREN'T FUCKING HELPING ME AT THIS TIME THIS RN FELT INCREDIBLE UNSAFE D/T PTS UNPREDICTABLE AND AGGRESSIVE BEHAVIOR. SECURITY BECAME INVOLVED IN THE SITUATION TO VERBALLY DE-ESCALATE PT.
--- NOTE | 2021-11-30 23:17 | PC.NURSE ---
MALE GREEN PARTY WHO CLAIMS TO BE PTS BROTHER BUT IS ALSO PT IN THE WR ROOM AT THIS TIME, CAME UP TO DESK STATING WHY AREN'T YOU GIVING MY BROTHER ANY MEDS, WHY ISN'T THIS BITCH FUCKING HELPING HIM THIS RN ASKED THIS GENTLEMEN TO PLEASE NOT INTERFERE WITH THE CARE OF OTHER PATIENTS IN THE WAITING ROOM AND AT THIS TIME THE MALE GREEN PARTY RESPONDED WITH THEN STOP ACTING LIKE A FUCKING ASSHOLE SECURITY PRESENT FOR THIS INTERACTION AND ATTEMPTING TO VERBALLY DEESCALATE.
--- NOTE | 2021-12-01 00:25 | ED_ITS ---
HPI - Nausea/Vomiting/Diarrhea General Chief complaint: Nausea/Vomiting/Diarrhea Stated complaint: vomiting Time Seen by Provider: 12/01/21 00:13 Source: patient Mode of arrival: ambulatory Limitations: no limitations History of Present Illness HPI Narrative: 21-year-old male presents with nausea and vomiting for 2 day with associated epigastric pain in self reports smoking marijuana and prior history of cyclical vomiting.? Other than patient experiencing chills wall vomiting he otherwise denies any fever, chills, diarrhea, shortness of breath/chest pain/palpitations. Seen here yesterday for similar symptoms. Received IV medications and fluids and felt improved and was discharged home. Associated nausea: Yes Related Data Previous Rx's Medication Instructions Recorded metoclopramide HCl 5 mg tablet 5 mg PO Q6H PRN #20 tab 08/17/21 (Reglan) omeprazole 20 mg capsule,delayed 20 mg PO DAILY #30 cap 08/17/21 release metoclopramide HCl 5 mg tablet 5 mg PO DAILY PRN #20 tab 11/29/21 (Reglan) Allergies Allergy/AdvReac Type Severity Reaction Status Date / Time No Known Allergies Allergy Verified 11/29/21 04:44 [No Known Allergies*] Review of Systems Review of Systems: Yes all other systems are reviewed and are negative Constitutional: Constitutional: Reports no additional constitutional complaints, Denies body ache(s), Denies chills, Denies fever(s), Denies headache(s) and Denies weakness Eyes: Eyes: Reports no additional eye complaints and Denies change in vision ENT: Reports system reviewed and no additional complaints, except as document ed, Denies dizziness, Denies headache(s), Denies nasal congestion, Denies nasal discharge and Denies neck pain Cardiovascular: Cardiovascular: Reports no additional cardiovascular complaints, Denies chest pain, Denies leg edema and Denies dyspnea Respiratory: Respiratory: Reports no additional respiratory complaints, Denies cough and Denies dyspnea Gastrointestinal: Gastrointestinal: Reports no additional gastrointestinal complaints, Reports abdominal pain, Denies diarrhea, Reports nausea and Reports vomiting Genitourinary: Genitourinary: Denies urinary incontinence Musculoskeletal: Musculoskeletal: Reports no additional musculoskeletal complaints, Denies back pain, Denies arthralgias, Denies joint swelling, Denies neck pain, Denies numbness and Denies tingling Integumentary/Breasts: Skin/Breast: Reports system reviewed and no additional complaints, except as docu and Denies rash Neurologic: Reports system reviewed and no additional complaints, except as documented, Denies Abnormal speech present, Denies dizziness, Denies headache (s), Denies numbness, Denies tingling and Denies weakness PMFSH Past Medical History Attestation statement: The following information was validated with the patient. Source: old records reviewed and nursing notes reviewed Medical History Boxer's fracture with routine healing Gastritis Tibial fracture Surgical History History of open reduction and internal fixation (ORIF) procedure Hx of appendicitis Family History Family History Mother Hypertension Anxiety Father No problems noted. Social History Social History Housing: Apartment Alcohol intake: never Patient Tobacco Use Status: Never used Tobacco e-Cigarette/Vaping Use: Never Used Second Hand Smoke Exposure: No Substance Use Type: Marijuana Advance Directives: Yes Advance Directives on File: Yes Advance Directives Date on File: 08/08/21 service: No Current occupational status: unemployed Physical Exam Vital Signs: Vital Signs: Last Vital Signs Temp 98.8 F 11/30/21 22:53 Pulse 89 11/30/21 22:53 Resp 16 11/30/21 22:53 BP 146/91 H 11/30/21 22:53 Pulse Ox 100 11/30/21 22:53 BMI result Body Mass Index 21.6 Const: General: cooperative, healthy appearing, comfortable and no acute dist ress Orientation/consciousness: patient oriented x3 Limitations: no limitations HENMT: Head: Yes normal to inspection Ears: hearing grossly normal bilaterally and TM's normal bilaterally General nose exam: Normal external nose present Face and sinus: Yes normal facial exam Mouth: Normal oral and palatal mucosa present Throat: Yes posterior oropharynx normal Eyes: General: appearance normal, both eyes and all related structures Pupils: Equal, round and reactive pupils present Neck: Neck: Yes normal visual inspection, Yes full ROM, Yes no lymphadenopathy and Yes no meningeal signs Chest: Chest palpation & inspection: normal inspection of the chest Resp: Effort & Inspection: normal respiratory effort Auscultation: clear to auscultation bilaterally Cardio: Rate: regular rate Rhythm: regular rhythm Peripheral pulses: Peripheral pulses 2+ throughout GI: Inspection: Yes normal to inspection Palpation (GI): Soft to palpation and Tenderness to palpation present (GI) (mild epigastric-no rebound or guarding) Auscultation: normal bowel sounds Back/Spine/Pelvis: Thoracic/Lumbar Spine: thoracic and lumbar spine normal to inspection Skin: General skin exam: no rashes or lesions noted Neuro: General: patient oriented x3, no meningeal signs, no focal motor deficits and normal sensation to monofilament Cranial nerves: Yes CN's II-XII intact bilaterally, Yes Equal, round and reactive pupils present, Yes Bilaterally intact EOM present, Yes Nystagmus not present, Yes Normal facial strength present and Yes Midline tongue present Cognition (Neuro): normal cognition Speech: No Abnormal speech present Gait exam (Neuro): Normal gait present Motor exam (neuro): 5/5 motor strength present throughout Sensory Exam: Normal double simultaneous stimulation for sensation Extrem: General: Yes normal to inspection Course Course Course Narrative: 21-year-old male here with reports of epigastric pain with vomiting for the last 2 days unable to tolerate p.o.. Seen here yesterday and received IV fluids and medications and was discharged home. Returns today for persistent symptoms. Will check labs, UA. Will give IV fluids and IV medications for support 0200-mild leukocytosis likely secondary vomiting and not for infection. Patient will need re-evaluation with p.o. trial prior to discharge. Sign out to night team pending above MDM - Nausea/Vomiting/Diarrhea Medical Records Attestation: I reviewed the patient's medical records. Lab Data Attestation: I reviewed the patient's lab results. Result diagrams: 12/01/21 01:02 12/01/21 01:02 Labs: Lab Results 12/01/21 12/01/21 Range/Units 01:02 01:02 WBC 15.5 H (4.8-10.8) X10*3/uL RBC 5.12 (4.60-5.80) X10*6/uL Hgb 16.4 (14.0-18.0) g/dl Hct 45.9 (42.0-52.0) % MCV 89.6 (80.0-98.0) fL MCH 32.0 (27.0-33.0) pg MCHC 35.7 (31.0-36.0) g/dl RDW 11.4 (11.0-16.0) % Plt Count 265 (160-400) X10*3/uL MPV 11.0 (9.4-12.4) fL Immature Gran % (Auto) 0.3 (0.0-0.4) % Neut % (Auto) 88.1 H (45-73) % Lymph % (Auto) 6.4 L (20-40) % [place] % (Auto) 5.0 (2-11) % Eos % (Auto) 0.0 (0-4) % Baso % (Auto) 0.2 (0-2) % Lymph # (Auto) 1.0 L (1.2-4.9) X10*3/uL [place] # (Auto) 0.8 (0.1-1.2) X10*3/uL Eos # (Auto) 0.0 (0.0-0.4) X10*3/uL Baso # (Auto) 0.0 (0.0-0.2) X10*3/uL Abs Immat Gran (auto) 0.05 H (0.00-0.03) X10*3/uL Absolute Neuts (auto) 13.7 H (2.0-8.3) x10*3/uL Absolute Nucleated RBC 0.000 (0.0-0.012) X10*3/uL Nucleated RBC % (auto) 0.0 (0.0-0.2) /100WBC Sodium 142 (135-145) mmol/L Potassium 3.7 (3.3-5.1) mmol/L Chloride 103 (96-108) mmol/L Carbon Dioxide 22 (22-29) mmol/L Anion Gap 21 H (12-20) BUN 12 (9-16) mg/dL Creatinine 0.85 (0.5-1.4) mg/dL Estim Creat Clear Calc 113.6 Estimated GFR > 60 Random Glucose 144 H (60-115) mg/dL Calcium 10.2 (8.4-10.2) mg/dL Magnesium 1.8 (1.6-2.6) mg/dL Total Bilirubin 1.1 H (0.0-1.0) mg/dL Direct Bilirubin 0.4 (0.0-0.5) mg/dL AST 31 D (5-37) U/L ALT 26 (0-40) U/L Alkaline Phosphatase 80 (39-117) U/L Total Protein 7.9 (6.5-8.0) g/dL Albumin 5.0 (3.5-5.0) g/dL Discharge Plan Discharge Clinical Impression: Nausea & vomiting Patient Disposition: Still a Patient Instructions: Acute Nausea and Vomiting (ED) Additional Instructions: Start with clear liquids and advance diet as tolerated Prescriptions: No Action omeprazole 20 mg capsule,delayed release(DR/EC) 20 mg PO DAILY Qty: 30 0RF metoclopramide HCl [Reglan] 5 mg tablet 5 mg PO Q6H PRN (Reason: nausea and vomiting) Qty: 20 0RF metoclopramide HCl [Reglan] 5 mg tablet 5 mg PO DAILY PRN (Reason: nausea and vomiting) Qty: 20 0RF Referrals: Angelic Mills MD [Primary Care Provider] - 1 week
[2021-12-01] MEDS: ondansetron HCL 4 MG/2 ML VIAL IVPUSH (00:57)
[2021-12-01] MEDS: Ketorolac Tromethamine 30 MG/ML VIAL IVPUSH (00:58)
[2021-12-01] MEDS: diphenhydrAMINE HCL 50 MG/ML VIAL 25 MG IVPUSH (00:59)
[2021-12-01] MEDS: Metoclopramide HCl 10 MG/2 ML VIAL IVPUSH (00:59)
[2021-12-01] MEDS: 0.9 % Sodium Chloride 1,000 ML 999 ML IV (01:03)
[2021-12-01 01:07] LABS: MANUAL DIFF FLAG NO
[2021-12-01 01:13] LABS: Basophils Percent Auto 0.2 % (0-2); Hematocrit 45.9 % (42.0-52.0); Hemoglobin 16.4 g/dl (14.0-18.0); Imm Gran Abs Auto 0.05 X10*3/uL (0.00-0.03); Imm Gran Pct Auto 0.3 % (0.0-0.4); Lymphocytes Percent Auto 6.4 % (20-40); Mean Corpuscular HGB Conc 35.7 g/dl (31.0-36.0); Mean Corpuscular Volume 89.6 fL (80.0-98.0); Monocytes Absolute Auto 0.8 X10*3/uL (0.1-1.2); Neutrophils Absolute Auto 13.7 x10*3/uL (2.0-8.3); Neutrophils Percent Auto 88.1 % (45-73); Platelet Count 265 X10*3/uL (160-400); Red Blood Count 5.12 X10*6/uL (4.60-5.80); Red Cell Distribution Width 11.4 % (11.0-16.0); White Blood Count 15.5 X10*3/uL (4.8-10.8)
[2021-12-01 01:29] LABS: Alanine Aminotransferase 26 U/L (0-40); Alkaline Phosphatase 80 U/L (39-117); Anion Gap 21 (12-20); Aspartate Amino Transferase 31 U/L (5-37); Bilirubin Direct 0.4 mg/dL (0.0-0.5); Bilirubin Total 1.1 mg/dL (0.0-1.0); Blood Urea Nitrogen 12 mg/dL (9-16); Calcium 10.2 mg/dL (8.4-10.2); Carbon Dioxide 22 mmol/L (22-29); Chloride 103 mmol/L (96-108); Creatinine Clr Calc Pharmacy 113.6; Estimated Glomerular Filt Rate > 60; Glucose Random 144 mg/dL (60-115); Magnesium 1.8 mg/dL (1.6-2.6); Potassium 3.7 mmol/L (3.3-5.1); Sodium 142 mmol/L (135-145); Total Protein 7.9 g/dL (6.5-8.0)
[2021-12-01 02:30] VITALS: BP 95/50; PULSE 70; RESP 16; TEMP 36.8; O2SAT 98
== END 2021-12-01 03:57 | disposition home or self-care (01) ==
PROVIDERS: Nurse Practitioner Family; Emergency Provider Student in an Organized Health Care Education/Training Program; PCP Internal Medicine
DX: R11.2 Nausea with vomiting, unspecified (principal); F12.90 Cannabis use, unspecified, uncomplicated; R10.13 Epigastric pain
CPT/HCPCS: 36415; 80048; 80076; 83735; 85025; 96361; 96374; 96375; 99284; J1200; J1885; J2405; J2765

== ENCOUNTER 2021-12-02 09:09 | Inpatient (IN) | payer OTHER, SELFPAY ==
[2021-12-02 09:17] VITALS: BP 152/96; PULSE 56; RESP 18; TEMP 36.7; O2SAT 99; BMI 23.5
--- NOTE | 2021-12-02 09:56 | ED_ITS ---
HPI - Nausea/Vomiting/Diarrhea General Chief complaint: Nausea/Vomiting/Diarrhea Stated complaint: vomiting Time Seen by Provider: 12/02/21 09:50 Source: patient and family Mode of arrival: ambulatory Limitations: no limitations History of Present Illness HPI Narrative: 21-year-old male came in for evaluation of abdominal pain and vomiting for 6 days. Patient was seen in the emergency department twice in the last 3 days for similar symptoms of nausea, vomiting, nonbloody watery diarrhea, with diffuse abdominal cramps. Was prescribed Zofran to use as an outpatient which apparently not working with this patient. Patient has history of cyclical vomiting syndrome, declined using any recent antibiotic, no recent travel, do not think it is related to bad food that he ate, admit to smoke marijuana last use was a week ago. No relieving factor, no aggravating factor. Surgical history is significant for appendectomy. Related Data Previous Rx's Medication Instructions Recorded omeprazole 20 mg capsule,delayed 20 mg PO DAILY #30 cap 08/17/21 release metoclopramide HCl 5 mg tablet 5 mg PO DAILY PRN #20 tab 11/29/21 (Reglan) ondansetron 4 mg disintegrating 4 mg PO Q6H PRN #10 tab 12/01/21 tablet sucralfate 100 mg/mL oral 10 ml PO QID #420 ml 12/01/21 suspension (Carafate) Allergies Allergy/AdvReac Type Severity Reaction Status Date / Time No Known Allergies Allergy Verified 11/29/21 04:44 [No Known Allergies*] Review of Systems Review of Systems: All other systems are reviewed and are negative Constitutional: Reports as per HPI and Reports no additional constitutional complaints Eyes: Reports as per HPI and Reports no additional eye complaints Reports system reviewed and no additional complaints, except as documented Cardiovascular: Reports as per HPI and Reports no additional cardiovascular complaints Respiratory: Reports as per HPI and Reports no additional respiratory complaints Gastrointestinal: Reports as per HPI and Reports no additional gastrointestinal complaints Genitourinary: Reports no additional female genitourinary complaints Musculoskeletal: Reports no additional musculoskeletal complaints Skin/Breast: Reports system reviewed and no additional complaints, except as docu Psychiatric: Reports no additional psychiatric complaints Endocrine: Reports no additional endocrine complaints Hematologic/Lymphatic: Reports no additional hematologic/lymphatic complaints Allergic/Immunologic: Reports no additional allergic/immunologic complaints Reports system reviewed and no additional complaints, except as documented and Reports Abnormal speech present PMFSH Past Medical History Medical History Boxer's fracture with routine healing Gastritis Tibial fracture Surgical History History of open reduction and internal fixation (ORIF) procedure Hx of appendicitis Family History Family History Mother Hypertension Anxiety Father No problems noted. Social History Social History Housing: Apartment Alcohol intake: never Patient Tobacco Use Status: Never used Tobacco e-Cigarette/Vaping Use: Never Used Second Hand Smoke Exposure: No Use of substances other than those prescribed or required for medical reasons: No Substance Use Type: Marijuana Advance Directives: Yes Advance Directives on File: Yes Advance Directives Date on File: 08/08/21 service: No Current occupational status: unemployed Physical Exam Vital Signs: Vital Signs: Last Vital Signs Temp 98.0 F 12/02/21 09:17 Pulse 56 12/02/21 09:17 Resp 18 12/02/21 09:17 BP 152/96 H 12/02/21 09:17 Pulse Ox 99 12/02/21 09:17 BMI result Body Mass Index 23.5 Vital signs have been reviewed as appeared to be correct. Blood pressure normal. Heart rate normal. Respiration rate normal. Temperature normal. Oxygen saturation normal. Appearance: Alert. Oriented X3. No acute distress. Head: Normal external exam. Normocephalic. Atraumatic. No Merecr signs noted. No raccoon eyes noted Eyes: PERRLA. EOMI. Conjunctiva and sclera normal. Eyelids normal. ENT: TM's Normal. Pharynx normal. Uvula midline. Moist mucous membranes. No trismus noted. No drooling noted. No muffled voice noted. Neck: Normal inspection. Neck supple. FROM. No adenopathy. Thyroid Normal. No meningeal signs. No neck mass noted. CVS: Normal heart rate and rhythm. Heart sound normal. No murmurs noted. Pulses normal throughout. Respiratory: No respiratory distress. Painless inspiration. Breath sounds normal. No wheezes/rales/rhonchi noted. Chest nontender. No accessory muscle usage noted or decreased air movement noted. Abdomen: Soft, mild epigastric tenderness. Bowel sounds normal in all 4 quadrants. No distention noted. No organomegaly noted. No visible injury noted. Back: No CVA tenderness. Full range of motion noted. Skin: Skin warm and dry. Normal skin color. Normal skin turgor. No rashes/les ions/lacerations noted. Extremities: No lower extremity edema. Extremities exhibit normal range of motion. Extremities nontender. Neuro: Oriented X 3. Cranial nerve exam: II-XII are grossly intact No motor deficit. No sensory deficit. Reflexes normal. Course Course Course Narrative: Assessment and plan. 21 years old male history of cyclical vomiting syndrome, and marijuana use, return to ED for persistent nausea, vomiting, abdominal cramps as the 3rd visit in 4 days. Patient reported using anti emetic drug as an outpatient without relieving of his symptoms, unable to keep p.o. challenge as an outpatient. Patient had a history of appendectomy, improvement of leukocytosis today. Admit the patient for IV hydration and p.o. challenging. MDM - Nausea/Vomiting/Diarrhea Lab Data Result diagrams: 12/02/21 10:04 12/02/21 10:04 Labs: Lab Results 12/02/21 12/02/21 Range/Units 10:04 10:04 WBC 8.2 (4.8-10.8) X10*3/uL RBC 5.00 (4.60-5.80) X10*6/uL Hgb 16.1 (14.0-18.0) g/dl Hct 45.8 (42.0-52.0) % MCV 91.6 (80.0-98.0) fL MCH 32.2 (27.0-33.0) pg MCHC 35.2 (31.0-36.0) g/dl RDW 11.4 (11.0-16.0) % Plt Count 219 (160-400) X10*3/uL MPV 10.7 (9.4-12.4) fL Immature Gran % (Auto) 0.4 (0.0-0.4) % Neut % (Auto) 83.0 H (45-73) % Lymph % (Auto) 11.6 L (20-40) % [place] % (Auto) 4.8 (2-11) % Eos % (Auto) 0.0 (0-4) % Baso % (Auto) 0.2 (0-2) % Lymph # (Auto) 1.0 L (1.2-4.9) X10*3/uL [place] # (Auto) 0.4 (0.1-1.2) X10*3/uL Eos # (Auto) 0.0 (0.0-0.4) X10*3/uL Baso # (Auto) 0.0 (0.0-0.2) X10*3/uL Abs Immat Gran (auto) 0.03 (0.00-0.03) X10*3/uL Absolute Neuts (auto) 6.8 (2.0-8.3) x10*3/uL Absolute Nucleated RBC 0.000 (0.0-0.012) X10*3/uL Nucleated RBC % (auto) 0.0 (0.0-0.2) /100WBC Sodium 142 (135-145) mmol/L Potassium 3.6 (3.3-5.1) mmol/L Chloride 103 (96-108) mmol/L Carbon Dioxide 24 (22-29) mmol/L Anion Gap 19 (12-20) BUN 9 (9-16) mg/dL Creatinine 0.83 (0.5-1.4) mg/dL Estim Creat Clear Calc 130.5 Estimated GFR > 60 Random Glucose 111 (60-115) mg/dL Calcium 9.6 (8.4-10.2) mg/dL Total Bilirubin 1.1 H (0.0-1.0) mg/dL Direct Bilirubin 0.4 (0.0-0.5) mg/dL AST 21 (5-37) U/L ALT 23 (0-40) U/L Alkaline Phosphatase 76 (39-117) U/L Total Protein 7.2 (6.5-8.0) g/dL Albumin 4.6 (3.5-5.0) g/dL Lipase 34 (8-78) U/L Discharge Plan Discharge Clinical Impression: Cyclical vomiting, Marijuana use, Intractable vomiting Patient Disposition: Admitted As Inpatient Prescriptions: No Action omeprazole 20 mg capsule,delayed release(DR/EC) 20 mg PO DAILY Qty: 30 0RF metoclopramide HCl [Reglan] 5 mg tablet 5 mg PO DAILY PRN (Reason: nausea and vomiting) Qty: 20 0RF sucralfate [Carafate] 100 mg/mL suspension 10 ml PO QID Qty: 420 0RF Rx Instructions: swish in mouth and swallow; use after food/drink ondansetron 4 mg tablet,disintegrating 4 mg PO Q6H PRN (Reason: nausea and vomiting) Qty: 10 0RF
[2021-12-02 10:09] LABS: MANUAL DIFF FLAG NO
[2021-12-02 10:12] LABS: Basophils Percent Auto 0.2 % (0-2); Hematocrit 45.8 % (42.0-52.0); Hemoglobin 16.1 g/dl (14.0-18.0); Imm Gran Abs Auto 0.03 X10*3/uL (0.00-0.03); Imm Gran Pct Auto 0.4 % (0.0-0.4); Lymphocytes Percent Auto 11.6 % (20-40); Mean Corpuscular HGB Conc 35.2 g/dl (31.0-36.0); Mean Corpuscular Hemoglobin 32.2 pg (27.0-33.0); Mean Corpuscular Volume 91.6 fL (80.0-98.0); Mean Platelet Volume 10.7 fL (9.4-12.4); Monocytes Absolute Auto 0.4 X10*3/uL (0.1-1.2); Monocytes Percent Auto 4.8 % (2-11); Neutrophils Absolute Auto 6.8 x10*3/uL (2.0-8.3); Platelet Count 219 X10*3/uL (160-400); Red Cell Distribution Width 11.4 % (11.0-16.0); White Blood Count 8.2 X10*3/uL (4.8-10.8)
[2021-12-02] MEDS: Famotidine/PF 20 MG/2 ML VIAL IVPUSH (10:12)
[2021-12-02] MEDS: Metoclopramide HCl 10 MG/2 ML VIAL IVPUSH (10:12)
[2021-12-02] MEDS: 0.9 % Sodium Chloride 1,000 ML 999 ML IV ×2 (10:12→11:20)
[2021-12-02 10:30] LABS: Alanine Aminotransferase 23 U/L (0-40); Albumin Level 4.6 g/dL (3.5-5.0); Alkaline Phosphatase 76 U/L (39-117); Anion Gap 19 (12-20); Aspartate Amino Transferase 21 U/L (5-37); Bilirubin Direct 0.4 mg/dL (0.0-0.5); Bilirubin Total 1.1 mg/dL (0.0-1.0); Blood Urea Nitrogen 9 mg/dL (9-16); Calcium 9.6 mg/dL (8.4-10.2); Carbon Dioxide 24 mmol/L (22-29); Chloride 103 mmol/L (96-108); Creatinine Clr Calc Pharmacy 130.5; Estimated Glomerular Filt Rate > 60; Glucose Random 111 mg/dL (60-115); Lipase 34 U/L (8-78); Potassium 3.6 mmol/L (3.3-5.1); Sodium 142 mmol/L (135-145); Total Protein 7.2 g/dL (6.5-8.0)
[2021-12-02 11:16] VITALS: BP 118/72; PULSE 91; RESP 16; TEMP 37.7; O2SAT 99
[2021-12-02] MEDS: ondansetron HCL 4 MG/2 ML VIAL IVPUSH ×2 (11:20→21:03)
--- NOTE | 2021-12-02 11:36 | PC.NURSE ---
pt seen by hosp md(alexandra), pt/family aware of plan of care for admission to hosp.
[2021-12-02 11:39] LABS: COVID-19 Test Negative (Negative)
--- NOTE | 2021-12-02 11:49 | PM.IMHP ---
History of Present Illness Date of Service: 12/02/21 Chief Complaint: Nausea vomiting and diarrhea 21-year-old male with past medical history of cyclic vomiting syndrome, Presented with 4 days of nausea vomiting and diarrhea. Patient has had multiple episodes of similar symptoms. He feels well in between episodes. He continues To use cannabis. He has some abdominal pain associated with retching. Denies any blood in stool, gross bleeding and vomit. Patient is unable to tolerate p.o.. Review of Systems Review of Systems: Constitutional: Denies fever, denies Chills Eyes: denies blurry vision ENT: denies sore throat CVS: denies chest pain Respiratory: Denies dyspnea GI: abdominal pain : denies dysuria MSK: denies neck pain Skin: denies rash Neuro: denies specific motor weakness Psych: denies suicidal ideation Endocrine: denies heat/cold intolerance Hematologic: denies easy bleeding Allergy: denies hives [facility] Medical History Boxer's fracture with routine healing Gastritis Tibial fracture Family History Mother Hypertension Anxiety Father No problems noted. Surgical History History of open reduction and internal fixation (ORIF) procedure Hx of appendicitis Social History Housing: Apartment Alcohol intake: never Patient Tobacco Use Status: Never used Tobacco e-Cigarette/Vaping Use: Never Used Second Hand Smoke Exposure: No Use of substances other than those prescribed or required for medical reasons: No Substance Use Type: Marijuana Advance Directives: Yes Advance Directives on File: Yes Advance Directives Date on File: 08/08/21 service: No Current occupational status: unemployed Meds Allergies Allergy/AdvReac Type Severity Reaction Status Date / Time No Known Allergies Allergy Verified 11/29/21 04:44 [No Known Allergies*] Active Medications: Current Medications Capsaicin (Capsaicin 0.025% Cream 60 Gm Tube) 1 appl TOPICAL TID PRN; Protocol PRN Reason: nasuea Sodium Chloride (Ns) 1,000 mls @ 999 mls/hr IV .Q1H1M ONE Stop: 12/02/21 12:16 Last Admin: 12/02/21 11:20 Dose: 999 mls/hr Documented by: Lactated Ringer's (Lr) 1,000 mls @ 100 mls/hr IVCONT .Q10H [place] Ondansetron HCl (Ondansetron Hcl 4 Mg/2 Ml Vial) 4 mg IVPUSH Q6H PRN PRN Reason: nausa Pharmacy Consult (Consult Rx Perform Med Rec) 1 each MISCELLANE ONCE PRN PRN Reason: Consult order Sodium Chloride (0.9 % Sodium Chloride Flush 3 Ml Syringe) 3 ml IVFLUSH QSHIFT [place] Physical Exam Vital Signs and Narrative: Vital Signs: Last Vital Signs Temp 99.8 F 12/02/21 11:16 Pulse 91 12/02/21 11:16 Resp 16 12/02/21 11:16 BP 118/72 12/02/21 11:16 Pulse Ox 99 12/02/21 11:16 BMI result Body Mass Index 23.5 General: no acute distress HEENT: atraumatic Neck: normal to visual inspection CVS: S1, S2, RRR Resp: CTA bilateral Chest: non tender GI: soft, non tender, non distended : no CVA tenderness Skin: no rashes Extremities: no edema Neuro: Oriented X3, grossly intact Psych: cooperative Results Labs CBC and Chem 7: 12/02/21 10:04 12/02/21 10:04 Labs: Laboratory Results - last 24 hr 12/02/21 12/02/21 12/02/21 10:04 10:04 11:15 MCV 91.6 MCH 32.2 MCHC 35.2 RDW 11.4 Plt Count 219 MPV 10.7 Immature Gran % (Auto) 0.4 Neut % (Auto) 83.0 H Lymph % (Auto) 11.6 L [place] % (Auto) 4.8 Eos % (Auto) 0.0 Baso % (Auto) 0.2 Lymph # (Auto) 1.0 L [place] # (Auto) 0.4 Eos # (Auto) 0.0 Baso # (Auto) 0.0 Abs Immat Gran (auto) 0.03 Absolute Neuts (auto) 6.8 Absolute Nucleated RBC 0.000 Nucleated RBC % (auto) 0.0 Anion Gap 19 Estim Creat Clear Calc 130.5 Estimated GFR > 60 Random Glucose 111 Calcium 9.6 Total Bilirubin 1.1 H Direct Bilirubin 0.4 AST 21 ALT 23 Alkaline Phosphatase 76 Total Protein 7.2 Albumin 4.6 Lipase 34 COVID-19 (SHAYE) Negative COVID-19 Clin Com See Note Assessment and Plan (1) Cyclical vomiting: Status: Acute Plan 21-year-old male presented with nausea vomiting and diarrhea Cyclic vomiting syndrome with inability to tolerate p.o. IV fluids, antiemetics Topical capsaicin Monitor electrolytes Quality Stroke Does the patient have a stroke diagnosis?: No VTE Prior VTE?: No VTE Risk Level:: Medical - low VTE Device Contraindication: Treatment Not Indicated VTE Drug Contraindication: Treatment Not Indicated
--- NOTE | 2021-12-02 12:15 | PHA.MEDREC ---
Pharmacy Consult ? Medication Reconciliation Pharmacy has completed the medication reconciliation. No remarkable issues. Renea Garcia, WallaceD
[2021-12-02] MEDS: Lactated Ringers 1,000 ML 100 ML IVCONT ×2 (12:33→22:05)
[2021-12-02] MEDS: Capsaicin 0.025% Cream 60 GM TUBE 1 APPL TOPICAL (12:37)
[2021-12-02 12:49] LABS: Appearance Urine HAZY; Color Urine YELLOW; Glucose Urine UA NEG (NEG); Leukocyte Esterase Urine NEG (NEG); Nitrite Urine NEG (NEG); Urine Blood NEG (NEG); Urine Ketones >=80 MG/DL (NEG); Urine Protein NEG (NEG-TRACE)
--- NOTE | 2021-12-02 13:14 | PC.NURSE ---
pt c/o slight nausea took sips of gatorade and did not tolerate it well. md aware.
[2021-12-02] MEDS: Haloperidol Lactate 5 MG/ML VIAL IV (13:15)
[2021-12-02 14:02] VITALS: BP 118/80; PULSE 76; RESP 18; TEMP 37.4; O2SAT 97
--- NOTE | 2021-12-02 15:34 | MHC.CM.PN ---
Addendum entered by Ramona Valle 12/02/21 15:39: HCP ON FILE AND VERIFIED. HE IS AWARE THAT A COPY IS ON FILE Original Note: PATIENT LIVES WITH HIS MOTHER (IN ROOM DURING ASSESSMENT) NO DME OR VNA SERVICES AND IS FULLY INDEPENDENT. HE HAS NOT BEEN VACCINATED AGAINST COVID-19 AND IS AWARE THAT HE IS COVID NEGATIVE. MOTHER WILL PROVIDE TRANSPORT HOME AT TIME OF DISCHARGE. CASE MANAGEMENT AVAILABLE AND WILL ASSIST WITH COMPLETION OF HCP IF HE CHOOSES TO DO SO.
[2021-12-02] MEDS: 0.9 % Sodium Chloride Flush 3 ML SYRINGE IVFLUSH (16:33)
[2021-12-02 21:50] VITALS: BP 121/64; PULSE 88; RESP 14; TEMP 36.9; O2SAT 99
[2021-12-03] VITALS (7 sets, daily range): BP systolic 113–143; BP diastolic 63–84; PULSE 53–94; RESP 14–20; TEMP 36.6–37.2; O2SAT 98–100
--- NOTE | 2021-12-03 03:05 | PC.NURSE ---
Assumed care about 20:00. Patient was essentially asymptomatic at that time. Alert and oriented. Responds appropriately. Compliant with care. Had visitor here. Tried to have dinner, but caused wretching with no actual vomitus, but some clear sputum up. Patient advised to rest bowel and wait until PRN zofran takes effect and then can try PO when feeling better.
[2021-12-03] MEDS: Omeprazole 40 MG CAPSULE.DR PO (06:17)
[2021-12-03] MEDS: Lactated Ringers 1,000 ML 100 ML IVCONT ×2 (06:44→16:33)
[2021-12-03] MEDS: ondansetron HCL 4 MG/2 ML VIAL IVPUSH ×2 (06:45→16:48)
--- NOTE | 2021-12-03 08:07 | PC.NURSE ---
PT CONTINUES TO VOMIT STOMACH CONTENTS, WORSE AFTER ATTEMPTS AT PO CHALLENGE
[2021-12-03 08:48] LABS: Hematocrit 44.4 % (42.0-52.0); Hemoglobin 15.2 g/dl (14.0-18.0); Mean Corpuscular HGB Conc 34.2 g/dl (31.0-36.0); Mean Corpuscular Volume 90.6 fL (80.0-98.0); Mean Platelet Volume 11.3 fL (9.4-12.4); Platelet Count 180 X10*3/uL (160-400); Red Cell Distribution Width 11.3 % (11.0-16.0); White Blood Count 8.4 X10*3/uL (4.8-10.8)
[2021-12-03] MEDS: Haloperidol Lactate 5 MG/ML VIAL IVPUSH (09:07)
[2021-12-03 09:14] LABS: Anion Gap 19 (12-20); Blood Urea Nitrogen 7 mg/dL (9-16); Calcium 8.8 mg/dL (8.4-10.2); Carbon Dioxide 19 mmol/L (22-29); Chloride 101 mmol/L (96-108); Estimated Glomerular Filt Rate > 60; Glucose Fasting 72 mg/dL (60-99); Potassium 3.4 mmol/L (3.3-5.1); Sodium 136 mmol/L (135-145)
--- NOTE | 2021-12-03 09:31 | P.PNIM_ITS ---
Subjective Subjective Date of Service: 12/03/21 Interval History: cc: n/v/d interval history: unchanged Cardiovascular Cardiovascular: Reports no additional cardiovascular complaints Respiratory Respiratory: Reports no additional respiratory complaints Physical Exam Vital Signs: Vital Signs: Last Vital Signs Temp 98.6 F 12/03/21 07:17 Pulse 74 12/03/21 07:17 Resp 18 12/03/21 07:17 BP 135/84 12/03/21 07:17 Pulse Ox 100 12/03/21 07:17 BMI result Body Mass Index 23.5 General: AO X 3, no acute distress Resp: CTA bilateral, no accessory muscles used CVS: S1,S2,RRR GI: soft, diffusely tender, non distended Neuro: motor grossly intact, alert Psych: appropriate affect, appropriate insight Objective Data Active Medications Capsaicin (Capsaicin 0.025% Cream 60 Gm Tube) 1 appl TOPICAL TID PRN; Protocol PRN Reason: nasuea Last Admin: 12/02/21 12:37 Dose: 1 appl Documented by: SALAS Lactated Ringer's (Lr) 1,000 mls @ 100 mls/hr IVCONT .Q10H [facility] Last Admin: 12/03/21 06:44 Dose: 100 mls/hr Documented by: ARIK Omeprazole (Omeprazole 40 Mg Capsule.Dr) 40 mg PO DAILY@0630 [facility] Last Admin: 12/03/21 06:17 Dose: 40 mg Documented by: ARIK Ondansetron HCl (Ondansetron Hcl 4 Mg/2 Ml Vial) 4 mg IVPUSH Q6H PRN PRN Reason: nausa Last Admin: 12/03/21 06:45 Dose: 4 mg Documented by: ARIK Pharmacy Consult (Consult Rx Perform Med Rec) 1 each MISCELLANE ONCE PRN PRN Reason: Consult order Sodium Chloride (0.9 % Sodium Chloride Flush 3 Ml Syringe) 3 ml IVFLUSH QSHIFT [facility] Last Admin: 12/03/21 07:04 Dose: Not Given Documented by: THERON Non-Admin Reason: Patient Asleep Labs CBC & Chem 7: 12/03/21 07:58 12/03/21 07:58 Labs: Laboratory Results - last 24 hr 12/02/21 12/02/21 12/02/21 10:04 10:04 11:15 MCV 91.6 MCH 32.2 MCHC 35.2 RDW 11.4 Plt Count 219 MPV 10.7 Immature Gran % (Auto) 0.4 Neut % (Auto) 83.0 H Lymph % (Auto) 11.6 L [place] % (Auto) 4.8 Eos % (Auto) 0.0 Baso % (Auto) 0.2 Lymph # (Auto) 1.0 L [place] # (Auto) 0.4 Eos # (Auto) 0.0 Baso # (Auto) 0.0 Abs Immat Gran (auto) 0.03 Absolute Neuts (auto) 6.8 Absolute Nucleated RBC 0.000 Nucleated RBC % (auto) 0.0 Anion Gap 19 Estim Creat Clear Calc 130.5 Estimated GFR > 60 Random Glucose 111 Fasting Glucose Calcium 9.6 Total Bilirubin 1.1 H Direct Bilirubin 0.4 AST 21 ALT 23 Alkaline Phosphatase 76 Total Protein 7.2 Albumin 4.6 Lipase 34 Urine Color Urine Appearance Urine pH Ur Specific [place] Urine Protein Urine Glucose (UA) Urine Ketones Urine Blood Urine Nitrite Ur Leukocyte Esterase COVID-19 (SHAYE) Negative COVID-19 Clin Com See Note 12/02/21 12/03/21 12/03/21 12:44 07:58 07:58 MCV 90.6 MCH 31.0 MCHC 34.2 RDW 11.3 Plt Count 180 MPV 11.3 Immature Gran % (Auto) Neut % (Auto) Lymph % (Auto) [place] % (Auto) Eos % (Auto) Baso % (Auto) Lymph # (Auto) [place] # (Auto) Eos # (Auto) Baso # (Auto) Abs Immat Gran (auto) Absolute Neuts (auto) Absolute Nucleated RBC 0.000 Nucleated RBC % (auto) 0.0 Anion Gap 19 Estim Creat Clear Calc 157.0 Estimated GFR > 60 Random Glucose Fasting Glucose 72 Calcium 8.8 D Total Bilirubin Direct Bilirubin AST ALT Alkaline Phosphatase Total Protein Albumin Lipase Urine Color YELLOW Urine Appearance HAZY Urine pH 7.0 Ur Specific [place] 1.020 Urine Protein NEG Urine Glucose (UA) NEG Urine Ketones >=80 Urine Blood NEG Urine Nitrite NEG Ur Leukocyte Esterase NEG COVID-19 (SHAYE) COVID-19 Clin Com Assessment and Plan (1) Cyclical vomiting: Status: Acute Plan 21-year-old male presented with nausea vomiting and diarrhea Cyclic vomiting syndrome with inability to tolerate p.o. IV fluids, antiemetics did not tolerate topical capsaicin will try warm blankets Monitor electrolytes Quality Stroke Does the patient have a stroke diagnosis?: No VTE Prior VTE?: No VTE Risk Level:: Medical - low VTE Device Contraindication: Treatment Not Indicated VTE Drug Contraindication: Treatment Not Indicated
[2021-12-03] MEDS: LORazepam 2 MG/ML VIAL 1 MG IVPUSH (10:36)
--- NOTE | 2021-12-03 10:43 | PC.NURSE ---
PT MEDICATED FOR CONTINUED VOMITING, DRY HEAVES, RESTING NOW
--- NOTE | 2021-12-03 11:31 | PC.NURSE ---
PT RESTING QUIETLY.
--- NOTE | 2021-12-03 13:37 | PC.NURSE ---
report given to med surg
[2021-12-04] MEDS: Lactated Ringers 1,000 ML 100 ML IVCONT ×3 (01:36→23:43)
[2021-12-04 06:30] LABS: Hematocrit 41.4 % (42.0-52.0); Hemoglobin 14.7 g/dl (14.0-18.0); Mean Corpuscular HGB Conc 35.5 g/dl (31.0-36.0); Mean Corpuscular Hemoglobin 31.9 pg (27.0-33.0); Mean Corpuscular Volume 89.8 fL (80.0-98.0); Mean Platelet Volume 11.6 fL (9.4-12.4); Platelet Count 196 X10*3/uL (160-400); Red Blood Count 4.61 X10*6/uL (4.60-5.80); White Blood Count 7.2 X10*3/uL (4.8-10.8)
[2021-12-04 06:51] LABS: Anion Gap 12 (12-20); Blood Urea Nitrogen 5 mg/dL (9-16); Calcium 8.7 mg/dL (8.4-10.2); Carbon Dioxide 25 mmol/L (22-29); Chloride 104 mmol/L (96-108); Creatinine Clr Calc Pharmacy 154.7; Estimated Glomerular Filt Rate > 60; Glucose Fasting 80 mg/dL (60-99); Potassium 3.8 mmol/L (3.3-5.1); Sodium 137 mmol/L (135-145)
[2021-12-04 08:00] VITALS: BP 146/102; PULSE 82; RESP 20; TEMP 36.4; O2SAT 96
[2021-12-04] MEDS: ondansetron HCL 4 MG/2 ML VIAL IVPUSH ×2 (08:44→18:28)
--- NOTE | 2021-12-04 10:03 | HO.PM.IMPN ---
Subjective Subjective Date of Service: 12/04/21 Interval History: cc: n/v/d interval history: unchanged Cardiovascular Cardiovascular: Reports no additional cardiovascular complaints Respiratory Respiratory: Reports no additional respiratory complaints Physical Exam Vital Signs: Vital Signs: Last Vital Signs Temp 97.6 F 12/04/21 08:00 Pulse 82 12/04/21 08:00 Resp 20 12/04/21 08:00 BP 146/102 H 12/04/21 08:00 Pulse Ox 96 12/04/21 08:00 BMI result Body Mass Index 23.5 General: AO X 3, no acute distress Resp:? CTA bilateral, no accessory muscles used CVS: S1,S2,RRR GI: soft, diffusely tender, non distended Neuro:? motor grossly intact, alert Psych: appropriate affect, appropriate insight? Objective Data Active Medications Capsaicin (Capsaicin 0.025% Cream 60 Gm Tube) 1 appl TOPICAL TID PRN; Protocol PRN Reason: nasuea Last Admin: 12/02/21 12:37 Dose: 1 appl Documented by: SALAS Lactated Ringer's (Lr) 1,000 mls @ 100 mls/hr IVCONT .Q10H [facility] Last Admin: 12/04/21 01:36 Dose: 100 mls/hr Documented by: LYNNE Omeprazole (Omeprazole 40 Mg Capsule.Dr) 40 mg PO DAILY@0630 [facility] Last Admin: 12/04/21 06:02 Dose: Not Given Documented by: LYNNE Non-Admin Reason: Patient Refused Ondansetron HCl (Ondansetron Hcl 4 Mg/2 Ml Vial) 4 mg IVPUSH Q6H PRN PRN Reason: nausa Last Admin: 12/04/21 08:44 Dose: 4 mg Documented by: OG Pharmacy Consult (Consult Rx Perform Med Rec) 1 each MISCELLANE ONCE PRN PRN Reason: Consult order Sodium Chloride (0.9 % Sodium Chloride Flush 3 Ml Syringe) 3 ml IVFLUSH QSHIFT [facility] Last Admin: 12/04/21 07:29 Dose: Not Given Documented by: OG Non-Admin Reason: IV Running Labs CBC & Chem 7: 12/04/21 05:26 12/04/21 05:26 Labs: Laboratory Results - last 24 hr 12/04/21 12/04/21 05:26 05:26 MCV 89.8 MCH 31.9 MCHC 35.5 RDW 11.0 Plt Count 196 MPV 11.6 Absolute Nucleated RBC 0.000 Nucleated RBC % (auto) 0.0 Anion Gap 12 Estim Creat Clear Calc 154.7 Estimated GFR > 60 Fasting Glucose 80 Calcium 8.7 Assessment and Plan (1) Cyclical vomiting: Status: Acute Plan 21-year-old male presented with nausea vomiting and diarrhea Cyclic vomiting syndrome with inability to tolerate p.o. no improvement continue IV fluids, antiemetics did not tolerate topical capsaicin warm blankets Quality Stroke Does the patient have a stroke diagnosis?: No VTE Prior VTE?: No VTE Risk Level:: Medical - low VTE Device Contraindication: Treatment Not Indicated VTE Drug Contraindication: Treatment Not Indicated
[2021-12-04 11:27] VITALS: BP 166/95; PULSE 68; RESP 18; TEMP 37; O2SAT 100
[2021-12-04] MEDS: Capsaicin 0.025% Cream 60 GM TUBE 1 APPL TOPICAL (13:01)
[2021-12-04 15:49] VITALS: BP 122/66; PULSE 80; RESP 17; TEMP 37.1; O2SAT 98
[2021-12-04] MEDS: 0.9 % Sodium Chloride Flush 3 ML SYRINGE IVFLUSH (18:19)
[2021-12-04] MEDS: Prochlorperazine Edisylate 10 MG/2 ML VIAL 5 MG IVPUSH (23:34)
--- NOTE | 2021-12-04 23:37 | SUR.OPER ---
P patient co nausea and abdominal pain I Dr. Melendrez notified IV compazine administered as ordered,patient made aware of tramadol and atarax available for him
[2021-12-05] MEDS: ondansetron HCL 4 MG/2 ML VIAL IVPUSH ×3 (01:57→21:28)
[2021-12-05 07:52] VITALS: BP 118/73; PULSE 91; RESP 18; TEMP 36.7; O2SAT 97
--- NOTE | 2021-12-05 10:44 | HO.PM.IMPN ---
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 Systemic review: No fever, chills or weakness No chest pain, palpitation No shortness of breath or coughing having recurrent nausea, vomiting and abdominal pain No urinary symptoms No any rash or wounds Physical Exam Vital Signs: Vital Signs: Last Vital Signs Temp 98.1 F 12/05/21 07:52 Pulse 91 12/05/21 07:52 Resp 18 12/05/21 07:52 BP 118/73 12/05/21 07:52 Pulse Ox 97 12/05/21 07:52 BMI result Body Mass Index 23.5 Const: Other: Constitutional : Alert, oriented, not in distress Neck : Normal inspection, Supple Cardiovascular : RRR, S1 S2, no lower extremity edema Respiratory : Good bilateral air entry, no crackles, wheezes or rhonchi Gastrointestinal: soft, lax, Normal bowel sounds, Non tender Skin : Warm, Dry Neurological : Alert & oriented x3, No focal deficit Objective Data Active Medications Capsaicin (Capsaicin 0.025% Cream 60 Gm Tube) 1 appl TOPICAL TID PRN; Protocol PRN Reason: nasuea Last Admin: 12/04/21 13:01 Dose: 1 appl Documented by: OSITO Hydroxyzine HCl (Hydroxyzine Hcl 25 Mg Tablet) 25 mg PO Q6H PRN PRN Reason: anxiety/restlessness Dextrose/Lactated Ringer's (D5lr) 1,000 mls @ 100 mls/hr IVCONT .Q10H [facility] Metoclopramide HCl (Metoclopramide Hcl 5 Mg Tablet) 5 mg PO QIDACHS [facility] Last Admin: 12/05/21 09:14 Dose: Not Given Documented by: OG Non-Admin Reason: Patient Refused Omeprazole (Omeprazole 40 Mg Aicha.) 40 mg PO DAILY@0630 [facility] Last Admin: 12/05/21 05:50 Dose: Not Given Documented by: RICHARD Non-Admin Reason: Patient Refused Ondansetron HCl (Ondansetron Hcl 4 Mg/2 Ml Vial) 4 mg IVPUSH Q6H PRN PRN Reason: nausa Last Admin: 12/05/21 01:57 Dose: 4 mg Documented by: RICHARD Pharmacy Consult (Consult Rx Perform Med Rec) 1 each MISCELLANE ONCE PRN PRN Reason: Consult order Sodium Chloride (0.9 % Sodium Chloride Flush 3 Ml Syringe) 3 ml IVFLUSH QSHIFT [facility] Last Admin: 12/05/21 09:06 Dose: Not Given Documented by: OG Non-Admin Reason: IV Running Labs CBC & Chem 7: 12/04/21 05:26 12/04/21 05:26 Assessment and Plan (1) Cyclical vomiting: Status: Acute Plan 21-year-old male presented with nausea vomiting and diarrhea Cyclic vomiting syndrome with inability to tolerate p.o. no improvement change IV fluids to D5 LR To use metoclopramide around mealtime to get care team evaluation warm blankets DVT PPX Early ambulation Quality Stroke Does the patient have a stroke diagnosis?: No VTE Prior VTE?: No VTE Risk Level:: Medical - low VTE Device Contraindication: Treatment Not Indicated VTE Drug Contraindication: Treatment Not Indicated
[2021-12-05] MEDS: Dextrose 5 % and Lactated Ring 1,000 ML 100 ML IVCONT (11:46)
--- NOTE | 2021-12-05 15:56 | MHC.CM.PN ---
PATIENT STILL WITH NAUSEA AND ABDOMINAL PAIN. PLAN IS TO CHANGE IV FLUIDS CASE MANAGEMENT FOLLOWING. EVENTUAL PLAN IS HOME - SELF CARE
[2021-12-05 16:00] VITALS: BP 120/72; PULSE 92; RESP 18; TEMP 37.2; O2SAT 97
[2021-12-05] MEDS: 0.9 % Sodium Chloride Flush 3 ML SYRINGE IVFLUSH (16:15)
[2021-12-05 23:58] VITALS: BP 132/82; PULSE 89; RESP 17; TEMP 36.6; O2SAT 98
[2021-12-06] MEDS: ondansetron HCL 4 MG/2 ML VIAL IVPUSH ×4 (03:35→23:37)
[2021-12-06] MEDS: Dextrose 5 % and Lactated Ring 1,000 ML 100 ML IVCONT ×3 (06:18→23:39)
[2021-12-06 07:42] VITALS: BP 116/59; PULSE 57; RESP 20; TEMP 36.2; O2SAT 97
[2021-12-06] MEDS: Metoclopramide HCl 10 MG/2 ML VIAL IVPUSH ×2 (10:06→17:35)
[2021-12-06] MEDS: Famotidine/PF 20 MG/2 ML VIAL IVPUSH ×2 (10:07→20:31)
[2021-12-06] MEDS: 0.9 % Sodium Chloride Flush 3 ML SYRINGE IVFLUSH ×2 (10:08→20:31)
--- NOTE | 2021-12-06 11:07 | HO.PM.IMPN ---
Subjective Subjective Date of Service: 12/06/21 Interval History: the patient was seen and evaluated this morning Laying in bed, still complaining of nausea and abdominal pain unable to tolerate p.o. diet or pills No reported other overnight events. Systemic review: No fever, chills or weakness No chest pain, palpitation No shortness of breath or coughing having recurrent nausea, vomiting and abdominal pain No urinary symptoms No any rash or wounds Physical Exam Vital Signs: Vital Signs: Last Vital Signs Temp 97.2 F 12/06/21 07:42 Pulse 57 12/06/21 07:42 Resp 20 12/06/21 07:42 BP 116/59 L 12/06/21 07:42 Pulse Ox 97 12/06/21 07:42 BMI result Body Mass Index 23.5 Const: Other: Constitutional : Alert, oriented, not in distress Neck : Normal inspection, Supple Cardiovascular : RRR, S1 S2, no lower extremity edema Respiratory : Good bilateral air entry, no crackles, wheezes or rhonchi Gastrointestinal: soft, lax, Normal bowel sounds, Non tender Skin : Warm, Dry Neurological : Alert & oriented x3, No focal deficit Objective Data Active Medications Capsaicin (Capsaicin 0.025% Cream 60 Gm Tube) 1 appl TOPICAL TID PRN; Protocol PRN Reason: nasuea Last Admin: 12/04/21 13:01 Dose: 1 appl Documented by: OSITO Famotidine (Famotidine/Pf 20 Mg/2 Ml Vial) 20 mg IVPUSH BID [facility] Last Admin: 12/06/21 10:07 Dose: 20 mg Documented by: JASON Hydroxyzine HCl (Hydroxyzine Hcl 25 Mg Tablet) 25 mg PO Q6H PRN PRN Reason: anxiety/restlessness Dextrose/Lactated Ringer's (D5lr) 1,000 mls @ 100 mls/hr IVCONT .Q10H [facility] Last Admin: 12/06/21 06:18 Dose: 100 mls/hr Documented by: FELICIANO Metoclopramide HCl (Metoclopramide Hcl 10 Mg/2 Ml Vial) 10 mg IVPUSH TIDAC [facility] Last Admin: 12/06/21 10:06 Dose: 10 mg Documented by: JASON Omeprazole (Omeprazole 40 Mg Capsule.) 40 mg PO DAILY@0630 [facility] Last Admin: 12/06/21 06:29 Dose: Not Given Documented by: FELICIANO Non-Admin Reason: Patient Refused Ondansetron HCl (Ondansetron Hcl 4 Mg/2 Ml Vial) 4 mg IVPUSH Q6H PRN PRN Reason: nausa Last Admin: 12/06/21 10:07 Dose: 4 mg Documented by: JASON Pharmacy Consult (Consult Rx Perform Med Rec) 1 each MISCELLANE ONCE PRN PRN Reason: Consult order Sodium Chloride (0.9 % Sodium Chloride Flush 3 Ml Syringe) [facility] Last Admin: 12/06/21 10:08 Dose: 3 ml Documented by: JASON Labs CBC & Chem 7: 12/04/21 05:26 12/04/21 05:26 Assessment and Plan (1) Cyclical vomiting: Status: Acute Plan 21-year-old male presented with nausea vomiting and diarrhea Cyclic vomiting syndrome with inability to tolerate p.o. no improvement change IV fluids to D5 LR change metoclopramide to IV around mealtime Start IV famotidine care team evaluation warm blankets DVT PPX Early ambulation Quality Stroke Does the patient have a stroke diagnosis?: No VTE Prior VTE?: No VTE Risk Level:: Medical - low VTE Device Contraindication: Treatment Not Indicated VTE Drug Contraindication: Treatment Not Indicated
[2021-12-06 15:56] VITALS: BP 130/80; PULSE 75; RESP 16; TEMP 36.6; O2SAT 98
[2021-12-06 23:48] VITALS: BP 137/94; PULSE 66; RESP 16; TEMP 37; O2SAT 99
[2021-12-07 07:06] VITALS: BP 127/79; PULSE 91; RESP 18; TEMP 35.5; O2SAT 99
[2021-12-07] MEDS: Famotidine/PF 20 MG/2 ML VIAL IVPUSH ×2 (08:44→19:50)
[2021-12-07] MEDS: Metoclopramide HCl 10 MG/2 ML VIAL IVPUSH (08:45)
[2021-12-07] MEDS: Omeprazole 40 MG CAPSULE.DR PO (08:45)
--- NOTE | 2021-12-07 10:15 | HO.PM.IMPN ---
Subjective Subjective Date of Service: 12/07/21 Interval History: the patient was seen and evaluated this morning Laying in bed, still complaining of nausea and vomiting unable to tolerate p.o. diet or pills No reported other overnight events. Systemic review: No fever, chills or weakness No chest pain, palpitation No shortness of breath or coughing having recurrent nausea, vomiting and abdominal pain No urinary symptoms No any rash or wounds Physical Exam Vital Signs: Vital Signs: Last Vital Signs Temp 96 F L 12/07/21 07:06 Pulse 91 12/07/21 07:06 Resp 18 12/07/21 07:06 BP 127/79 12/07/21 07:06 Pulse Ox 99 12/07/21 07:06 BMI result Body Mass Index 23.5 Const: Other: Constitutional : Alert, oriented, not in distress, looks tired Neck : Normal inspection, Supple Cardiovascular : RRR, S1 S2, no lower extremity edema Respiratory : Good bilateral air entry, no crackles, wheezes or rhonchi Gastrointestinal: soft, lax, Normal bowel sounds, mild generalized tenderness with no surgical signs Skin : Warm, Dry Neurological : Alert & oriented x3, No focal deficit Objective Data Active Medications Capsaicin (Capsaicin 0.025% Cream 60 Gm Tube) 1 appl TOPICAL TID PRN; Protocol PRN Reason: nasuea Last Admin: 12/04/21 13:01 Dose: 1 appl Documented by: OSITO Famotidine (Famotidine/Pf 20 Mg/2 Ml Vial) 20 mg IVPUSH BID [facility] Last Admin: 12/07/21 08:44 Dose: 20 mg Documented by: STEVE Hydroxyzine HCl (Hydroxyzine Hcl 25 Mg Tablet) 25 mg PO Q6H PRN PRN Reason: anxiety/restlessness Dextrose/Lactated Ringer's (D5lr) 1,000 mls @ 100 mls/hr IVCONT .Q10H [facility] Last Admin: 12/06/21 23:39 Dose: 100 mls/hr Documented by: MICHEL Promethazine HCl 6.25 mg/ (Sodium Chloride) 50.25 mls @ 201 mls/hr IV Q6H PRN PRN Reason: Nausea and Vomiting Metoclopramide HCl (Metoclopramide Hcl 10 Mg/2 Ml Vial) 10 mg IVPUSH TIDAC [facility] Last Admin: 12/07/21 08:45 Dose: 10 mg Documented by: STEVE Omeprazole (Omeprazole 40 Mg Capsule.Dr) 40 mg PO DAILY@0630 [facility] Last Admin: 12/07/21 08:45 Dose: 40 mg Documented by: STEVE Pharmacy Consult (Consult Rx Perform Med Rec) 1 each MISCELLANE ONCE PRN PRN Reason: Consult order Sodium Chloride (0.9 % Sodium Chloride Flush 3 Ml Syringe) 3 ml IVFLUSH QSHIFT [facility] Last Admin: 12/06/21 20:31 Dose: 3 ml Documented by: MICHEL Sucralfate (Sucralfate Oral Suspension 1 Gm/10 Ml Oral.Susp) 1 gm PO QID [facility] Last Admin: 12/07/21 08:54 Dose: Not Given Documented by: STEVE Non-Admin Reason: Patient Refused Labs CBC & Chem 7: 12/04/21 05:26 12/04/21 05:26 Assessment and Plan (1) Cyclical vomiting: Status: Acute (2) Intractable vomiting: Status: Acute Plan 21-year-old male presented with nausea vomiting and diarrhea Cyclic vomiting syndrome with inability to tolerate p.o. no improvement Continue D5 LR Continue metoclopramide IV around mealtime Continue IV famotidine To use Phenergan as needed for nausea care team evaluation warm blankets DVT PPX Early ambulation Quality Stroke Does the patient have a stroke diagnosis?: No VTE Prior VTE?: No VTE Risk Level:: Medical - low VTE Device Contraindication: Treatment Not Indicated VTE Drug Contraindication: Treatment Not Indicated
[2021-12-07] MEDS: 0.9 % Sodium Chloride Flush 3 ML SYRINGE IVFLUSH ×3 (10:43→19:50)
[2021-12-07] MEDS: Dextrose 5 % and Lactated Ring 1,000 ML 100 ML IVCONT (10:43)
--- NOTE | 2021-12-07 13:03 | MHC.RECOVRN ---
Met with pt in 376 after consult placed to CARE Team. Pt reports marijuana use, last use maybe a week ago and has been smoking regularly for 3 months. Pt reports that when abdominal discomfort began, pt ceased use. Pt declines other substances. Pt reports a similar event to this happened once before, approx 6 months ago. Pt reports after that pt did not use marijuana for 3 months. Pt states I'm done, I can't do this. This is awful. Pt engaged in conversation regarding recovery, reports living with people who are supportive of pt not using substances. Pt states I can do it. I've done it before. Pt declines any substance use services or referrals at this time. Discussed recovery coaching as well, pt not interested. Pt provided with resources as well as t/w contact information if needed.
[2021-12-07] MEDS: diphenhydrAMINE HCL 50 MG/ML VIAL 25 MG IVPUSH ×2 (15:21→19:49)
[2021-12-07] MEDS: diphenhydrAMINE HCL 50 MG/ML VIAL IVPUSH (15:21)
[2021-12-07 15:30] VITALS: BP 98/58; PULSE 76; RESP 18; TEMP 37.1; O2SAT 98
[2021-12-07] MEDS: ondansetron HCL 4 MG/2 ML VIAL IVPUSH (19:49)
[2021-12-07] MEDS: Sucralfate Oral Suspension 1 GM/10 ML ORAL.SUSP PO (19:50)
[2021-12-07 23:41] VITALS: BP 118/73; PULSE 76; RESP 18; TEMP 36.5; O2SAT 99
[2021-12-08] MEDS: Dextrose 5 % and Lactated Ring 1,000 ML 100 ML IVCONT ×2 (03:15→09:10)
[2021-12-08 07:03] VITALS: BP 133/74; PULSE 60; RESP 18; TEMP 35.5; O2SAT 98
[2021-12-08] MEDS: diphenhydrAMINE HCL 50 MG/ML VIAL 25 MG IVPUSH (09:10)
[2021-12-08] MEDS: ondansetron HCL 4 MG/2 ML VIAL IVPUSH (09:10)
[2021-12-08] MEDS: 0.9 % Sodium Chloride Flush 3 ML SYRINGE IVFLUSH (09:11)
[2021-12-08] MEDS: Famotidine/PF 20 MG/2 ML VIAL IVPUSH (09:11)
[2021-12-08] MEDS: Sucralfate Oral Suspension 1 GM/10 ML ORAL.SUSP PO ×4 (09:11→20:20)
--- NOTE | 2021-12-08 12:22 | PM.DS ---
DS: Providers Provider Date of Service: 12/08/21 Date of admission: 12/05/21 16:18 Primary care physician: Angelic Mcqueen MD Consults: 12/05/21 10:46 Consult to Care Team Routine Comment: Reason for consultation: cyclic vomiting from marijuana abuse DS: Diagnosis Discharge Diagnosis (1) Cyclical vomiting: Status: Acute (2) Intractable vomiting: Status: Acute (3) Marijuana abuse: Status: Acute DS: Summary Hospital Course Hospital Course: Admission note HPI 21-year-old male with past medical history of cyclic vomiting syndrome, Presented with 4 days of nausea vomiting and diarrhea.? Patient has had multiple episodes of similar symptoms.? He feels well in between episodes.? He continues To use cannabis. He has some abdominal pain associated with retching.? Denies any blood in stool, gross bleeding and vomit.? Patient is unable to tolerate p.o.. Hospital course The patient was admitted to the hospital and treated with IV fluid, antiemetics of Zofran and metoclopramide with slow response over the course of hospital stay as he continued to have intractable vomiting and was unable to tolerate diet until the last day of hospital stay. Addition of Benadryl seems to be helping as his nausea improved significantly and he was able to tolerate diet. He was advised for total abstinence from marijuana abuse and he said he is not planning to used again. to be discharged on as needed metoclopramide and Zofran. Time Spent with Patient Time attestation: Total time spent providing and/or coordinating discharge services: Discharge coordination time: Greater than 30 minutes Quality: Stroke Does the patient have a stroke diagnosis?: No Physical Exam Vital Signs: Vital Signs: Last Vital Signs Temp 96 F L 12/08/21 07:03 Pulse 60 12/08/21 07:03 Resp 18 12/08/21 07:03 BP 133/74 12/08/21 07:03 Pulse Ox 98 12/08/21 07:03 BMI result Body Mass Index 23.5 Const: Other: Constitutional : Alert, oriented, not in distress Neck : Normal inspection, Supple Cardiovascular : RRR, S1 S2, no lower extremity edema Respiratory : Good bilateral air entry, no crackles, wheezes or rhonchi Gastrointestinal: soft, lax, Normal bowel sounds, Non tender Skin : Warm, Dry Neurological : Alert & oriented x3, No focal deficit Discharge Plan Discharge Patient Disposition: Home, Self-Care Discharge Diagnosis: Cyclic vomiting syndrome Referrals: Angelic Mills MD [Primary Care Provider] - 1 Week Discharge Medications: Continued sucralfate [Carafate] 100 mg/mL suspension 10 ml PO QID Qty: 420 0RF Rx Instructions: swish in mouth and swallow; use after food/drink metoclopramide HCl [Reglan] 5 mg tablet 5 mg PO DAILY PRN (Reason: nausea and vomiting) Qty: 20 0RF omeprazole 20 mg capsule,delayed release(DR/EC) 20 mg PO DAILY Qty: 30 0RF ondansetron 4 mg tablet,disintegrating 4 mg PO Q6H PRN (Reason: nausea and vomiting) Qty: 20 0RF Discharge Orders: Discharge Order (Routine); Ordered 12/08/21 Ordered By: Nithya Parry Diet: advance to usual diet Activity on Discharge: As tolerated Stand Alone Forms: Patient Portal Discharge page Care Plan Goals: Read below Health Concerns: Read below Plan of Treatment: Read below Assessment: You were admitted to the hospital for treatment of intractable vomiting. Believed to be secondary to marijuana abuse and cyclic vomiting syndrome. Treated with IV fluid antiemetic medication with slow response over the course of hospital stay. We advise you complete abstinence from marijuana usage. Use Zofran or metoclopramide as needed for nausea control Advance your diet slowly over the next few days
--- NOTE | 2021-12-08 12:29 | MHC.CM.PN ---
DC HOME TODAY WITH NO SERVICES FAMILY TO TRANSPORT
--- NOTE | 2021-12-08 13:42 | HO.PM.IMPN ---
Subjective Subjective Date of Service: 12/08/21 Interval History: the patient was seen and evaluated this morning Laying in bed, was feeling good in the morning with plan to discharge him home but after breakfast he started throwing up again with no relief unable to tolerate p.o. diet or pills No reported other overnight events. Systemic review: No fever, chills or weakness No chest pain, palpitation No shortness of breath or coughing having recurrent nausea, vomiting and abdominal pain No urinary symptoms No any rash or wounds Physical Exam Vital Signs: Vital Signs: Last Vital Signs Temp 96 F L 12/08/21 07:03 Pulse 60 12/08/21 07:03 Resp 18 12/08/21 07:03 BP 133/74 12/08/21 07:03 Pulse Ox 98 12/08/21 07:03 BMI result Body Mass Index 23.5 Const: Other: Constitutional : Alert, oriented, not in distress Neck : Normal inspection, Supple Cardiovascular : RRR, S1 S2, no lower extremity edema Respiratory : Good bilateral air entry, no crackles, wheezes or rhonchi Gastrointestinal: soft, lax, Normal bowel sounds, Non tender Skin : Warm, Dry Neurological : Alert & oriented x3, No focal deficit Objective Data Active Medications Capsaicin (Capsaicin 0.025% Cream 60 Gm Tube) 1 appl TOPICAL TID PRN; Protocol PRN Reason: nasuea Last Admin: 12/04/21 13:01 Dose: 1 appl Documented by: OSITO Diphenhydramine HCl (Diphenhydramine Hcl 50 Mg/Ml Vial) 25 mg IVPUSH Q6H [facility] Last Admin: 12/08/21 09:10 Dose: 25 mg Documented by: JAVIER Famotidine (Famotidine/Pf 20 Mg/2 Ml Vial) 20 mg IVPUSH BID [facility] Last Admin: 12/08/21 09:11 Dose: 20 mg Documented by: JAVIER Hydroxyzine HCl (Hydroxyzine Hcl 25 Mg Tablet) 25 mg PO Q6H PRN PRN Reason: anxiety/restlessness Dextrose/Lactated Ringer's (D5lr) 1,000 mls @ 100 mls/hr IVCONT .Q10H [facility] Last Admin: 12/08/21 09:10 Dose: 100 mls/hr Documented by: JAVIER Metoclopramide HCl (Metoclopramide Hcl 10 Mg/2 Ml Vial) 10 mg IVPUSH TIDAC PRN PRN Reason: Nausea and Vomiting Omeprazole (Omeprazole 40 Mg Capsule.Dr) 40 mg PO DAILY@0630 [facility] Last Admin: 12/07/21 08:45 Dose: 40 mg Documented by: STEVE Ondansetron HCl (Ondansetron Hcl 4 Mg/2 Ml Vial) 4 mg IVPUSH QIDACHS [facility] Last Admin: 12/08/21 09:10 Dose: 4 mg Documented by: JAVIER Pharmacy Consult (Consult Rx Perform Med Rec) 1 each MISCELLANE ONCE PRN PRN Reason: Consult order Sodium Chloride (0.9 % Sodium Chloride Flush 3 Ml Syringe) 3 ml IVFLUSH QSHIFT [facility] Last Admin: 12/08/21 09:11 Dose: 3 ml Documented by: JAVIER Sucralfate (Sucralfate Oral Suspension 1 Gm/10 Ml Oral.Susp) 1 gm PO QID [facility] Last Admin: 12/08/21 09:11 Dose: 1 gm Documented by: JAVIER Labs CBC & Chem 7: 12/04/21 05:26 12/04/21 05:26 Assessment and Plan (1) Cyclical vomiting: Status: Acute (2) Intractable vomiting: Status: Acute Plan 21-year-old male presented with nausea vomiting and diarrhea Cyclic vomiting syndrome with inability to tolerate p.o. Improved in the morning but worsened after breakfast Continue D5 LR Continue Zofran IV around mealtime Continue IV famotidine start using Benadryl To use Metoclopramide as needed for nausea care team evaluation warm blankets DVT PPX Early ambulation Quality Stroke Does the patient have a stroke diagnosis?: No VTE Prior VTE?: No VTE Risk Level:: Medical - low VTE Device Contraindication: Treatment Not Indicated VTE Drug Contraindication: Treatment Not Indicated
[2021-12-08] MEDS: ondansetron HCL 4 MG/2 ML VIAL IM ×2 (13:55→21:20)
[2021-12-08] MEDS: diphenhydrAMINE HCL 50 MG/ML VIAL IM ×2 (13:56→21:20)
[2021-12-08 15:32] VITALS: BP 170/100; PULSE 66; RESP 15; TEMP 36.6; O2SAT 98
[2021-12-08 16:41] LABS: Anion Gap 19 (12-20); Blood Urea Nitrogen 5 mg/dL (9-16); Calcium 10.2 mg/dL (8.4-10.2); Carbon Dioxide 22 mmol/L (22-29); Chloride 102 mmol/L (96-108); Creatinine Clr Calc Pharmacy 133.7; Estimated Glomerular Filt Rate > 60; Glucose Random 88 mg/dL (60-115); Potassium 3.5 mmol/L (3.3-5.1); Sodium 139 mmol/L (135-145)
[2021-12-08] MEDS: hydrOXYzine HCL 25 MG TABLET PO (17:44)
[2021-12-08 23:50] VITALS: BP 121/91; PULSE 102; RESP 18; TEMP 36.8; O2SAT 99
--- NOTE | 2021-12-09 | ECG_ITS ---
Test Reason : check qtc Blood Pressure : / mmHG Vent. Rate : 091 BPM Atrial Rate : 091 BPM P-R Int : 128 ms QRS Dur : 084 ms QT Int : 376 ms P-R-T Axes : 088 080 068 degrees QTc Int : 462 ms Normal sinus rhythm Right atrial enlargement Borderline ECG When compared with ECG of 07-MAY-2019 23:29, Previous ECG has undetermined rhythm, needs review Referred By: Nithya Parry Electronically Signed By:Justin Jones
[2021-12-09] MEDS: Omeprazole 40 MG CAPSULE.DR PO (06:19)
[2021-12-09 06:22] VITALS: BP 140/90
[2021-12-09 07:52] VITALS: BP 150/90; PULSE 58; RESP 18; TEMP 36.4; O2SAT 97
--- NOTE | 2021-12-09 10:57 | HO.PM.IMPN ---
Subjective Subjective Date of Service: 12/09/21 Interval History: the patient was seen and evaluated this morning Laying in bed, complaining of recurrent attacks of vomiting and nausea unable to tolerate p.o. diet or pills or keeping anything down Lost his IV and resisting placing an Unna in as many trials failed to put a 1 No reported other overnight events. Systemic review: No fever, chills or weakness No chest pain, palpitation No shortness of breath or coughing having recurrent nausea, vomiting and abdominal pain No urinary symptoms No any rash or wounds Physical Exam Vital Signs: Vital Signs: Last Vital Signs Temp 97.6 F 12/09/21 07:52 Pulse 58 12/09/21 07:52 Resp 18 12/09/21 07:52 BP 150/90 H 12/09/21 07:52 Pulse Ox 97 12/09/21 07:52 BMI result Body Mass Index 23.5 Const: Other: Constitutional : Alert, oriented, not in distress Neck : Normal inspection, Supple Cardiovascular : RRR, S1 S2, no lower extremity edema Respiratory : Good bilateral air entry, no crackles, wheezes or rhonchi Gastrointestinal: soft, lax, Normal bowel sounds, Non tender Skin : Warm, Dry Neurological : Alert & oriented x3, No focal deficit Objective Data Active Medications Capsaicin (Capsaicin 0.025% Cream 60 Gm Tube) 1 appl TOPICAL TID PRN; Protocol PRN Reason: nasuea Last Admin: 12/04/21 13:01 Dose: 1 appl Documented by: OSITO Diphenhydramine HCl (Diphenhydramine Hcl 50 Mg/Ml Vial) 50 mg IM Q6H [facility] Last Admin: 12/09/21 03:06 Dose: Not Given Documented by: KEYONNA Non-Admin Reason: Patient Refused Famotidine (Famotidine/Pf 20 Mg/2 Ml Vial) 20 mg IVPUSH BID [facility] Last Admin: 12/08/21 20:21 Dose: Not Given Documented by: KEYONNA Non-Admin Reason: No Access Hydroxyzine HCl (Hydroxyzine Hcl 25 Mg Tablet) 25 mg PO Q6H PRN PRN Reason: anxiety/restlessness Last Admin: 12/08/21 17:44 Dose: 25 mg Documented by: JAVIER Dextrose/Lactated Ringer's (D5lr) 1,000 mls @ 100 mls/hr IVCONT .Q10H [facility] Last Admin: 12/09/21 05:45 Dose: Not Given Documented by: KEYONNA Non-Admin Reason: No Access Lorazepam (Lorazepam 2 Mg/Ml Vial) 0.5 mg IM Q6H [facility] Metoclopramide HCl (Metoclopramide Hcl 10 Mg/2 Ml Vial) 10 mg IVPUSH TIDAC PRN PRN Reason: Nausea and Vomiting Omeprazole (Omeprazole 40 Mg Capsule.Dr) 40 mg PO DAILY@0630 [facility] Last Admin: 12/09/21 06:19 Dose: 40 mg Documented by: KEYONNA Ondansetron HCl (Ondansetron Hcl 4 Mg/2 Ml Vial) 4 mg IM QIDACHS [facility] Last Admin: 12/09/21 08:00 Dose: Not Given Documented by: JAVIER Non-Admin Reason: Patient Refused Pharmacy Consult (Consult Rx Perform Med Rec) 1 each MISCELLANE ONCE PRN PRN Reason: Consult order Sodium Chloride (0.9 % Sodium Chloride Flush 3 Ml Syringe) 3 ml IVFLUSH QSHIFT [facility] Last Admin: 12/08/21 20:21 Dose: Not Given Documented by: KEYONNA Non-Admin Reason: No Access Labs CBC & Chem 7: 12/04/21 05:26 12/08/21 16:11 Labs: Laboratory Results - last 24 hr 12/08/21 16:11 Anion Gap 19 Estim Creat Clear Calc 133.7 Estimated GFR > 60 Random Glucose 88 Calcium 10.2 D Assessment and Plan (1) Marijuana abuse: Status: Acute (2) Intractable vomiting: Status: Resolved Plan 21-year-old male presented with nausea vomiting and diarrhea Cyclic vomiting syndrome with inability to tolerate p.o. Still complaining of recurrent attacks of vomiting To get an IV line and restart D5 LR Continue Zofran IV around mealtime Continue IV famotidine To add Ativan as well Continue using Benadryl to start Haldol if QTc acceptable, repeat EKG care team evaluation warm blankets DVT PPX Early ambulation Quality Stroke Does the patient have a stroke diagnosis?: No VTE Prior VTE?: No VTE Risk Level:: Medical - low VTE Device Contraindication: Treatment Not Indicated VTE Drug Contraindication: Treatment Not Indicated
[2021-12-09] MEDS: LORazepam 2 MG/ML VIAL 0.5 MG IVPUSH ×2 (11:31→21:50)
[2021-12-09] MEDS: diphenhydrAMINE HCL 50 MG/ML VIAL IVPUSH ×3 (11:31→23:53)
[2021-12-09] MEDS: ondansetron HCL 4 MG/2 ML VIAL IVPUSH ×3 (11:31→21:49)
[2021-12-09] MEDS: Famotidine/PF 20 MG/2 ML VIAL IVPUSH ×2 (11:32→21:49)
[2021-12-09] MEDS: 0.9 % Sodium Chloride Flush 3 ML SYRINGE IVFLUSH ×2 (11:32→15:54)
[2021-12-09] MEDS: SODIUM CHLORIDE IVCONT ×2 (12:55→23:19)
[2021-12-09] MEDS: DEXTROSE 10% IVCONT ×2 (12:55→23:19)
[2021-12-09 15:32] VITALS: BP 120/74; PULSE 103; RESP 17; TEMP 36.1; O2SAT 99
[2021-12-09] MEDS: Capsaicin 0.025% Cream 60 GM TUBE 1 APPL TOPICAL (15:54)
[2021-12-09 19:13] VITALS: BP 119/76; PULSE 102; RESP 18; TEMP 36.1; O2SAT 99
[2021-12-09 23:51] VITALS: BP 112/70; PULSE 76; RESP 16; TEMP 36.2; O2SAT 98
[2021-12-10] MEDS: Omeprazole 40 MG CAPSULE.DR PO (06:07)
[2021-12-10] MEDS: diphenhydrAMINE HCL 50 MG/ML VIAL IVPUSH (06:08)
[2021-12-10] MEDS: DEXTROSE 10% IVCONT (11:17)
[2021-12-10] MEDS: SODIUM CHLORIDE IVCONT (11:17)
[2021-12-10 11:36] VITALS: BP 122/72; PULSE 98; RESP 16; TEMP 36.7; O2SAT 100
--- NOTE | 2021-12-10 13:16 | PM.DS ---
DS: Providers Provider Date of Service: 12/10/21 Date of admission: 12/05/21 16:18 Primary care physician: Angelic Mcqueen MD Consults: 12/05/21 10:46 Consult to Care Team Routine Comment: Reason for consultation: cyclic vomiting from marijuana abuse DS: Diagnosis Discharge Diagnosis (1) Marijuana abuse: Status: Acute (2) Intractable vomiting: Status: Resolved (3) Cyclical vomiting: Status: Inactive DS: Summary Hospital Course Hospital Course: Admission note HPI 21-year-old male with past medical history of cyclic vomiting syndrome, Presented with 4 days of nausea vomiting and diarrhea.? Patient has had multiple episodes of similar symptoms.? He feels well in between episodes.? He continues To use cannabis. He has some abdominal pain associated with retching.? Denies any blood in stool, gross bleeding and vomit.? Patient is unable to tolerate p.o.. Hospital course The patient was admitted to the hospital and treated with IV fluid, antiemetics of Zofran and metoclopramide with slow response over the course of hospital stay as he continued to have intractable vomiting and was unable to tolerate diet until the last day of hospital stay. Addition of Benadryl seems to be helping as his nausea improved but he reverted back to have more nausea and vomiting. Fluid changed to D10 arch with addition of Ativan help taking care of his symptoms. He was advised for total abstinence from marijuana abuse and he said he is not planning to used again. to be discharged on as needed metoclopramide and Zofran with addition of Benadryl. Time Spent with Patient Time attestation: Total time spent providing and/or coordinating discharge services: Discharge coordination time: Greater than 30 minutes Quality: Stroke Does the patient have a stroke diagnosis?: No Physical Exam Vital Signs: Vital Signs: Last Vital Signs Temp 98.0 F 12/10/21 11:36 Pulse 98 12/10/21 11:36 Resp 16 12/10/21 11:36 BP 122/72 12/10/21 11:36 Pulse Ox 100 12/10/21 11:36 BMI result Body Mass Index 23.5 Const: Other: Constitutional : Alert, oriented, not in distress Neck : Normal inspection, Supple Cardiovascular : RRR, S1 S2, no lower extremity edema Respiratory : Good bilateral air entry, no crackles, wheezes or rhonchi Gastrointestinal: soft, lax, Normal bowel sounds, Non tender Skin : Warm, Dry Neurological : Alert & oriented x3, No focal deficit Discharge Plan Discharge Patient Disposition: Home, Self-Care Discharge Diagnosis: Cyclic vomiting syndrome Referrals: Angelic Mills MD [Primary Care Provider] - 1 Week Discharge Medications: New diphenhydramine HCl 25 mg capsule 25 mg PO Q6H PRN (Reason: nausea and vomiting) Qty: 30 0RF Continued sucralfate [Carafate] 100 mg/mL suspension 10 ml PO QID Qty: 420 0RF Rx Instructions: swish in mouth and swallow; use after food/drink metoclopramide HCl [Reglan] 5 mg tablet 5 mg PO DAILY PRN (Reason: nausea and vomiting) Qty: 20 0RF omeprazole 20 mg capsule,delayed release(DR/EC) 20 mg PO DAILY Qty: 30 0RF ondansetron 4 mg tablet,disintegrating 4 mg PO Q6H PRN (Reason: nausea and vomiting) Qty: 20 0RF Discharge Orders: Discharge Order (Routine); Ordered 12/10/21 Ordered By: Nithya Parry Diet: advance to usual diet Activity on Discharge: As tolerated Stand Alone Forms: Patient Portal Discharge page Care Plan Goals: Read below Health Concerns: Read below Plan of Treatment: Read below Assessment: You were admitted to the hospital for treatment of intractable vomiting. Believed to be secondary to marijuana abuse and cyclic vomiting syndrome. Treated with IV fluid antiemetic medication with slow response over the course of hospital stay. We advise you complete abstinence from marijuana usage. Use Zofran or metoclopramide as needed for nausea control You can use Benadryl as well to help with nausea Advance your diet slowly over the next few days
--- NOTE | 2021-12-10 13:21 | MHC.CM.PN ---
PATIENT IS DISCHARGED HOME TODAY - SELF CARE. FAMILY TO TRANSPORT
== END 2021-12-10 15:49 | disposition home or self-care (01) | DRG 249 ==
LOC: HO.ED 11:22 → HO.EDOVER 11:52 → HO.S3 12-03 13:25
PROVIDERS: Admitting Provider Internal Medicine; Emergency Provider Emergency Medicine; PCP Internal Medicine; Visit Provider Student in an Organized Health Care Education/Training Program
DX: R11.2 Nausea with vomiting, unspecified (principal); F12.10 Cannabis abuse, uncomplicated; Z20.822 Contact with and (suspected) exposure to COVID-19; Z79.899 Other long term (current) drug therapy
CPT/HCPCS: 36415; 80048; 80076; 81003; 83690; 85025; 85027; 87635; 93005; 96361; 96374; 96375; 99218; 99285; J1200; J2060; J2405; J2550; J2765

== ENCOUNTER 2023-05-18 03:44 | Emergency (ER) | payer OTHER, SELFPAY ==
[2023-05-18 04:13] VITALS: BP 124/69; PULSE 105; RESP 18; TEMP 36.8; O2SAT 97; BMI 21.8
== END 2023-05-18 06:52 | disposition left against medical advice (07) ==
LOC: HO.ED 06:44
PROVIDERS: Emergency Provider Emergency Medicine; PCP Internal Medicine
DX: M79.642 Pain in left hand (principal)
CPT/HCPCS: 99281